=== PATIENT | male | born 1980 | race Caucasian/White ===

== ENCOUNTER → 2016-07-03 | Outpatient (CLI) | payer BC ==
[~2016-07-03] MED LIST: CRG40 PO; HYG25 PO; POTA10TA33 PO; PRD20 PO; VLT500 PO
[2016-07-03 13:42] LABS: BLOOD UREA NITROGEN 26 mg/dl (7-18); BUN/CREATININE RATIO 26.9 (10-20); CARBON DIOXIDE 30 mmol/L (21-32); CHLORIDE 101 mmol/L (98-107); CREATININE 0.95 mg/dl (0.60-1.40); GLUCOSE 90 mg/dl (70-99); POTASSIUM 3.8 mmol/L (3.5-5.1); SODIUM 139 mmol/L (136-145)
[2016-07-03 13:46] LABS: CALCIUM 9.6 mg/dl (8.5-10.1)
== END | disposition home or self-care (01) ==
LOC: C.LABPVFM 09:11
PROVIDERS: ATTEND Family Medicine
DX: I10 Essential (primary) hypertension (principal); G62.9 Polyneuropathy, unspecified

== ENCOUNTER 2016-09-28 10:01 | Emergency (ER) | payer BC ==
[~2016-09-28] VITALS: Ht 170.2 cm; Wt 99.6 kg
[~2016-09-28 10:01] MED LIST changes: -CRG40 PO; -HYG25 PO; -POTA10TA33 PO
[2016-09-28 10:04] VITALS: TEMP 36.5; Ht 170.2 cm; Wt 99.6 kg
[2016-09-28] MEDS ORDERED: SODIUM CHLORIDE 0.9% 1000ML 500 ML IV STA (10:16)
[2016-09-28] MEDS ORDERED: SODIUM CHLORIDE 0.9% 1000ML 1,000 ML IV STA (10:16)
[2016-09-28 10:25] VITALS: O2SAT 96
[2016-09-28] MEDS ORDERED: HYG25 PO (10:28)
[2016-09-28] MEDS ORDERED: POTA10TA33 PO (10:28)
[2016-09-28] MEDS ORDERED: CRG40 PO (10:28)
--- NOTE | 2016-09-28 10:39 | DIAGNOSTIC IMAGING REPORT ---
CHEST ONE VIEW PORTABLE CLINICAL HISTORY: EVALUATE ALTERED MENTAL STATUS/WEAKNESS dyspnea COMPARISON STUDY: 02/20/2014 FINDINGS: The bones soft tissues and hemidiaphragms are normal. The cardiomediastinal silhouette is normal. The lungs are clear. The pulmonary vasculature is normal. IMPRESSION: Negative chest. The above report was generated using voice recognition software. It may contain grammatical, syntax or spelling errors. Electronically signed by: Adrian Bellamy M.D. 09/28/2016 10:38 AM Dictated Date/Time: 09/28/2016 10:37 AM
[2016-09-28 10:43] LABS: BASO % 0.3 %; BASO ABS # 0.02 K/uL (0-0.2); BUN/CREATININE RATIO 14.9 (10-20); CALCIUM 9.2 mg/dl (8.5-10.1); COMPLETE YES; CREATININE 1.2 mg/dl (0.60-1.40); EOS % 2.8 %; HEMATOCRIT 43.9 % (42-52); IG% 0.4 %; LYMPH % 30.5 %; LYMPH ABS # 2.37 K/uL (1.2-3.4); MEAN CELL VOLUME 93.2 fL (80-100); MEAN CORPUSCULAR HEMOGLOBIN 33.3 pg (25-34); MEAN CORPUSCULAR HGB CONC 35.8 g/dl (32-36); MEAN PLATELET VOLUME 11.4 fL (7.4-10.4); PLATELET COUNT 252 K/uL (130-400); POTASSIUM 3.4 mmol/L (3.5-5.1); RED BLOOD COUNT 4.71 M/uL (4.7-6.1); WHITE BLOOD COUNT 7.78 K/uL (4.8-10.8)
--- NOTE | 2016-09-28 10:45 | EMERGENCY ROOM VISIT NOTE ---
History Report prepared by Warren: Lizy Hammond Under the Supervision of: Dr. Haider Hairston M.D. First contact with patient: 10:14 Chief Complaint: CHEST PAIN Stated Complaint: CHEST PAIN Nursing Triage Summary: pt reports while at work "I felt like my heart stopped, I couldn't do anything ,I have never been stabbed but I know this is what it would feel like. 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 He states, "It felt like my heart stopped beating." He estimates that this lasted for about 8 seconds and then resolved. He states that he was unable to respond to his co- worker while he was having this pain. He felt momentarily paralyzed. The patient denies falling over. He states that since his symptoms resolved, he has been feeling extremely tired. This has happened in the past. He had heart palpitations and wore a heart monitor. He thinks that he had an episode of V- tach and was called in to the hospital at that time. He was never told that he needed a defibrillator. He had a cardiac catheterization in the past that was negative. The patient followed-up with Dr. Thomas, who he states ran more testing and placed him on medication for hypertension. He takes his medication as prescribed and states that he has not had any cardiac symptoms for about one year. He does note that since September 07 he has been experiencing intermittent palpitations again. The patient denies any recent illness, cough, or cold symptoms. 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 A total of 10 systems reviewed and were otherwise negative. Past Medical & Surgical Medical Problems: (1) Palpitations (2) Post concussion syndrome Family History Diabetes mellitus Heart disease Social History Smoking Status: Former Smoker Alcohol Use: occasionally Drug Use: none Marital Status: Housing Status: lives with family Occupation Status: employed Current/Historical Medications Scheduled Chlorthalidone (Chlorthalidone), 25 MG PO DAILY Nadolol (Nadolol), 40 MG PO DAILY Potassium Chloride (Potassium Chloride Sr), 10 MEQ PO DAILY Allergies Coded Allergies: No Known Allergies (Unverified , 02/20/14) Physical Exam Vital Signs Date Time Temp Pulse Resp B/P (MAP) Pulse Ox O2 Delivery O2 Flow Rate FiO2 09/28/16 13:15 52 20 126/87 96 09/28/16 12:17 47 09/28/16 12:00 48 16 131/92 96 Room Air 09/28/16 11:16 52 18 123/91 96 Room Air 09/28/16 10:25 96 Room Air 09/28/16 10:25 49 16 137/87 95 Room Air 09/28/16 10:17 51 09/28/16 10:04 36.5 54 18 165/113 96 Room Air Physical Exam GENERAL: Patient is in no acute distress. HEENT: No acute trauma, normocephalic atraumatic, mucous membranes moist, no nasal congestion, no scleral icterus. NECK: No stridor, no adenopathy, no meningismus, trachea is midline. LUNGS: Clear to auscultation bilaterally, no wheeze, no rhonchi, breath sounds equal. HEART: Bradycardic with a regular rhythm, no murmurs. ABDOMEN: Soft, nontender, bowel sounds positive, no hernias, no peritonitis. EXTREMITIES: No cyanosis or edema, full range of motion of all the joints without pain or difficulty, no signs for acute trauma. NEUROLOGIC: Oriented x 3, no acute motor or sensory deficits, no focal weakness. SKIN: No rash, no jaundice, no diaphoresis. Medical Decision & Procedures ER Provider Diagnostic Interpretation: Radiology results as stated below per my review and radiologist interpretation: CHEST ONE VIEW PORTABLE CLINICAL HISTORY: EVALUATE ALTERED MENTAL STATUS/WEAKNESS dyspnea COMPARISON STUDY: 02/20/2014 FINDINGS: The bones soft tissues and hemidiaphragms are normal. The cardiomediastinal silhouette is normal. The lungs are clear. The pulmonary vasculature is normal. IMPRESSION: Negative chest. The above report was generated using voice recognition software. It may contain grammatical, syntax or spelling errors. Electronically signed by: Adrian Bellamy M.D. 09/28/2016 10:38 AM Dictated Date/Time: 09/28/2016 10:37 AM Laboratory Results 09/28/16 10:15 Red Blood Count 4.71, Mean Corpuscular Volume 93.2, Mean Corpuscular Hemoglobin 33.3, Mean Corpuscular Hemoglobin Concent 35.8, Mean Platelet Volume 11.4, Neutrophils (%) (Auto) 54.0, Lymphocytes (%) (Auto) 30.5, Monocytes (%) (Auto) 12.0, Eosinophils (%) (Auto) 2.8, Basophils (%) (Auto) 0.3, Neutrophils # (Auto ) 4.21, Lymphocytes # (Auto) 2.37, Monocytes # (Auto) 0.93, Eosinophils # (Auto ) 0.22, Basophils # (Auto) 0.02 09/28/16 10:15 Test 09/28/16 10:15 09/28/16 12:22 White Blood Count 7.78 K/uL (4.8-10.8) Red Blood Count 4.71 M/uL (4.7-6.1) Hemoglobin 15.7 g/dL (14.0-18.0) Hematocrit 43.9 % (42-52) Mean Corpuscular Volume 93.2 fL (80-100) Mean Corpuscular Hemoglobin 33.3 pg (25-34) Mean Corpuscular Hemoglobin Concent 35.8 g/dl (32-36) Platelet Count 252 K/uL (130-400) Mean Platelet Volume 11.4 fL (7.4-10.4) Neutrophils (%) (Auto) 54.0 % Lymphocytes (%) (Auto) 30.5 % Monocytes (%) (Auto) 12.0 % Eosinophils (%) (Auto) 2.8 % Basophils (%) (Auto) 0.3 % Neutrophils # (Auto) 4.21 K/uL (1.4-6.5) Lymphocytes # (Auto) 2.37 K/uL (1.2-3.4) Monocytes # (Auto) 0.93 K/uL (0.11-0.59) Eosinophils # (Auto) 0.22 K/uL (0-0.5) Basophils # (Auto) 0.02 K/uL (0-0.2) RDW Standard Deviation 42.9 fL (36.4-46.3) RDW Coefficient of Variation 12.5 % (11.5-14.5) Immature Granulocyte % (Auto) 0.4 % Immature Granulocyte # (Auto) 0.03 K/uL (0.00-0.02) Anion Gap 6.0 mmol/L (3-11) Est Creatinine Clear Calc Drug Dose 93.9 ml/min Estimated GFR () 88.4 Estimated GFR (Non- 76.3 BUN/Creatinine Ratio 14.9 (10-20) Calcium Level 9.2 mg/dl (8.5-10.1) Total Bilirubin 0.4 mg/dl (0.2-1) Aspartate Amino Transf (AST/SGOT) 21 U/L (15-37) Alanine Aminotransferase (ALT/SGPT) 45 U/L (12-78) Alkaline Phosphatase 56 U/L (45-117) Total Protein 7.2 gm/dl (6.4-8.2) Albumin 3.8 gm/dl (3.4-5.0) Globulin 3.4 gm/dl (2.5-4.0) Albumin/Globulin Ratio 1.1 (0.9-2) Thyroid Stimulating Hormone (TSH) 1.730 uIu/ml (0.300-4.500) Bedside Troponin I < 0.030 ng/ml (0-0.045) Laboratory results reviewed by me. Medications Administered Medications (Trade) Dose Ordered Sig/Melvin Route Start Time Stop Time Status Last Admin Dose Admin Sodium Chloride 500 ml @ 999 mls/hr Q31M STAT IV 09/28/16 10:16 09/28/16 10:46 DC 09/28/16 10:29 999 MLS/HR Sodium Chloride 1,000 ml @ 200 mls/hr Q5H STAT IV 09/28/16 10:16 09/28/16 15:15 09/28/16 11:00 200 MLS/HR ECG Indication: chest pain Rate (beats per minute): 50 Rhythm: sinus bradycardia Findings: no acute ischemic change, no ectopy ED Course 1014: The patient was evaluated in room A3. A complete history and physical exam was performed. 1016: NSS 1000 ml @ 200 mls/hr IV, NSS 500 ml @ 999 mls/hr IV 1122: I spoke with Dr. Thomas of cardiology. We discussed the patient's case. He will set up for an event monitor for a month. It will be mailed to the patient's house and he will follow-up in the office after a month. 1134: I updated the patient. He is doing well. 1256: I reassessed the patient at this time. He is feeling better and resting comfortably. I discussed the results and treatment plan with the patient. I answered all pertaining questions that he had. He expressed understanding and verbalized agreement. The patient will be discharged home. Medical Decision Differential diagnoses includes musculoskeletal pain, dysrhythmia, palpitations , anemia, electrolyte imbalance, NE, aortic dissection, PE. There is no leukocytosis or concerning anemia. No significant electrolyte abnormality, kidney failure, hepatitis. The patient appears to be in a euthyroid state. EKG shows a sinus bradycardia, no acute ischemia. Cardiac enzyme testing 2 is not suggestive of acute cardiac injury. Chest x-ray shows no mediastinal widening, pneumonia or pneumothorax. The patient presents with an 8-10 second episode of sharp chest pain. He has a history of palpitations. Workup here is benign. He did receive some IV saline during his ER stay. 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 The patient will be receiving an event monitor in the mail. He will be followed up by cardiology. He was encouraged to return for worsening symptoms. The etiology of his presentation is not clear by our testing but I do feel comfortable with discharge home. Consults Time Called: 1120 Consulting Physician: Dr. Thomas Returned Call: [address] Thomas of cardiology. We discussed the patient's case. He will set up for an event monitor for a month. It will be mailed to the patient' s house and he will follow-up in the office after a month. Impression Primary Impression: Palpitations Additional Impression: Precordial chest pain Scribe Attestation The scribe's documentation has been prepared under my direction and personally reviewed by me in its entirety. I confirm that the note above accurately reflects all work, treatment, procedures, and medical decision making performed by me. Departure Information Dispostion Home / Self-Care Referrals Polo Crouch M.D. (PCP) Forms HOME CARE DOCUMENTATION FORM, IMPORTANT VISIT INFORMATION Patient Instructions My [facility] Additional Instructions follow with cardiology you will receive a monitor in the mail return if worsening testing today was all ok Problem Qualifiers
[2016-09-28 10:54] LABS: ALB/GLOB RATIO 1.1 (0.9-2); THYROID STIMULATING HORMONE 1.73 uIu/ml (0.300-4.500)
[2016-09-28 13:15] VITALS: BP 126/87; PULSE 52; O2SAT 96
== END 2016-09-28 13:18 | disposition home or self-care (01) ==
LOC: C.EDB 10:03 → C.EDA 13:18
DX: R00.2 Palpitations (principal); R07.2 Precordial pain; Z87.820 Personal history of traumatic brain injury; Z87.891 Personal history of nicotine dependence; Z98.890 Other specified postprocedural states; Z83.3 Family history of diabetes mellitus

== ENCOUNTER → 2017-06-21 | Outpatient (CLI) | payer OTHER ==
[~2017-06-21] MED LIST changes: +CRG40 PO; +HYG25 PO; +POTA10TA33 PO; -PRD20 PO; -VLT500 PO
[2017-06-21 13:32] LABS: BLOOD UREA NITROGEN 23 mg/dl (7-18); CALCIUM 9.5 mg/dl (8.5-10.1); CARBON DIOXIDE 29 mmol/L (21-32); CREATININE 1.09 mg/dl (0.60-1.40); GLUCOSE 90 mg/dl (70-99); POTASSIUM 3.3 mmol/L (3.5-5.1); SODIUM 134 mmol/L (136-145)
[2017-06-21 13:36] LABS: CHOLESTEROL 179 mg/dl (0-200)
== END | disposition home or self-care (01) ==
LOC: C.LABPVFM 09:17
PROVIDERS: ATTEND Nurse Practitioner
DX: G62.9 Polyneuropathy, unspecified (principal); I10 Essential (primary) hypertension

== ENCOUNTER → 2017-07-15 | Outpatient (CLI) | payer OTHER | END | disposition home or self-care (01) | LOC: C.LABPVFM 08:47 | PROVIDERS: ATTEND Nurse Practitioner | DX: E87.6 Hypokalemia (principal) ==

== ENCOUNTER 2019-07-27 19:41 | Observation (INO) ==
[2019-07-27] MEDS ORDERED: ASPIRIN CHEW 324 MG PO STA (20:03)
[2019-07-27] MEDS ORDERED: SODIUM CHLORIDE 0.9% 1000ML 1,000 ML IV SCH (20:15)
[2019-07-27 20:18] LABS: Basophils # (auto) 0.01 K/uL (0-0.2); Basophils % (auto) 0.1 %; Eosinophils % (auto) 1.4 %; Hematocrit (blood only) 45.8 % (42-52); Hemoglobin 16.2 g/dL (14.0-18.0); Immature Granulocytes # (auto) 0.01 K/uL (0.00-0.02); Immature Granulocytes % (auto) 0.1 %; Lymphocytes # (auto) 1.84 K/uL (1.2-3.4); Lymphocytes % (auto) 26.3 %; Mean Corpuscular Hgb Conc 35.4 g/dL (32-36); Mean Platelet Volume 10.4 fL (7.4-10.4); Monocytes # (auto) 0.94 K/uL (0.11-0.59); Monocytes % (auto) 13.4 %; Neutrophils % (auto) 58.7 %; Platelet Count 227 K/uL (130-400); RDW Coefficient of Variation 13.7 % (11.5-14.5); RDW Standard Deviation 47.7 fL (36.4-46.3); Red Blood Count 4.77 M/uL (4.7-6.1)
[2019-07-27 20:26] LABS: Alanine Aminotransferase 85 U/L (12-78); Albumin Level 3.9 gm/dl (3.4-5.0); Aspartate Aminotransferase 71 U/L (15-37); BUN Creatinine Ratio 13.7 (10-20); Blood Urea Nitrogen 14 mg/dl (7-18); Carbon Dioxide 25 mmol/L (21-32); Chloride 100 mmol/L (98-107); Creatinine Clr Calc Pharmacy 101.9 ml/min; Est GFR (African American) 105.3; Est GFR (Non-African American) 90.9; Glucose 110 mg/dl (70-99); Lipase 427 U/L (73-393); Potassium 3.4 mmol/L (3.5-5.1); Sodium 137 mmol/L (136-145)
[2019-07-27 20:30] LABS: Alkaline Phosphatase 84 U/L (45-117); Bilirubin,Total 0.4 mg/dl (0.2-1); Globulin 3.9 gm/dl (2.5-4.0); Total Protein 7.8 gm/dl (6.4-8.2); Troponin I < 0.015 ng/ml (0-0.045)
[2019-07-27 20:31] LABS: D Dimer 370 ug/L FEU (0-500); INR 1.1 (0.9-1.1); Partial Thromboplastin Ratio 0.9; Partial Thromboplastin Time 25.4 Seconds (21.0-31.0); Prothrombin Time 11.2 Seconds (9.0-12.0)
--- NOTE | 2019-07-27 20:31 | XRay Report ---
SINGLE VIEW CHEST CLINICAL HISTORY: Atypical chest pain. FINDINGS: An AP, portable, upright chest radiograph is compared to study dated 11/28/2018. The cardiom ediastinal silhouette is unremarkable. The lungs and pleural spaces are clear. No pneumothorax is see n. The bony thorax is grossly intact. IMPRESSION: No active disease in the chest. ACT 112: Negative or not required by law. Electronically signed by: Haider Fortune M.D. 07/27/2019 8:29 PM
--- NOTE | 2019-07-27 22:27 | Ultrasound Report ---
ULTRASOUND RIGHT UPPER QUADRANT ABDOMEN CLINICAL HISTORY: Right upper quadrant abdominal pain.. COMPARISON STUDY: Abdominal CT dated 02/01/2014. TECHNIQUE: Real-time, grayscale, and color flow sonography of the right upper quadrant of the abdomen was performed. Images are reviewed in the transverse and longitudinal planes. FINDINGS: Liver: The liver is normal in size and echotexture. There is no intrahepatic biliary ductal dilatatio n. The main portal vein is patent. Gallbladder: The gallbladder is normal in appearance. No gallstones are identified. There is no gallb ladder wall thickening or pericholecystic fluid. A sonographic Ocampo's sign is reportedly absent. Th e common bile duct measures up to 0.5 cm in diameter. Pancreas: Visualized portions of the pancreatic head and body are normal in appearance. The splenic v ein is patent. Right kidney: Survey images of the right kidney demonstrate normal size and echotexture. There is no hydronephrosis. Ascites: None. IMPRESSION: Unremarkable sonographic assessment of the right upper quadrant. No shadowing gallstones are identified. ACT 112: Negative or not required by law. Electronically signed by: Haider Fortune M.D. 07/27/2019 10:26 PM
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
[2019-07-27] MEDS ORDERED: GI COCKTAIL ED USE PO ONE (22:38)
[2019-07-27] MEDS ORDERED: FAMOTIDINE 20MG IV PUSH 20 MG/5 ML SYR IV STA (22:38)
--- NOTE | 2019-07-28 00:57 | Emergency Department Note ---
ED Visit Note Patient case was signed out to me at 10:45 PM by Isis Laguna PA-C at shift change. This was pending the patient's repeat troponin and repeat clinical evaluation. I did reevaluate the patient upon signout and he was resting comfortably and was pain-free. His EKG was reviewed and was similar to previous. Patient was felt to be a heart score of 3. We discussed options of care and at this time decided to discharge home with close follow-up in the outpatient setting. Patient was happy with this plan. He did express desire to stop drinking and we discussed benefit versus risk of a Librium taper. Patient desired this and this was prescribed. No red flag in the [place] drug monitoring system. He was thoroughly educated upon indication and cautions of this medication. Patient was discharged. I was then called by the nurse as he came back noting that he had chest pain. Upon speaking with the patient it sounds as though he felt fine when he stood up from the exam bed and left but when he made it to the entrance/exit to the ED he developed a tremendous substernal chest discomfort and felt clammy as well as burning inside his head. Given these symptoms that were felt to be exertional I do believe that further evaluation and management in the inpatient setting is now warranted. Patient was amenable to staying. I discussed the case with the hospitalist. Please refer to further documentation regarding his stay. . : Chest pain Qualifiers: Chest pain type: unspecified Qualified Code(s): R07.9 - Chest pain, unspecified Alcoholism with alcohol dependence Qualifiers: Substance use status: uncomplicated Qualified Code(s): F10.20 - Alcohol dependence, uncomplicated
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
[2019-07-28] MEDS ORDERED: GABAPENTIN 1200MG ALCOHOL WITHDRAWAL LOAD PO STA (03:34)
[2019-07-28] MEDS ORDERED: LORazepam 1 MG TAB PO PRN (03:34)
[2019-07-28 03:57] LABS: Basophils # (auto) 0.01 K/uL (0-0.2); Basophils % (auto) 0.2 %; Eosinophils # (auto) 0.11 K/uL (0-0.5); Hematocrit (blood only) 41.4 % (42-52); Hemoglobin 14.4 g/dL (14.0-18.0); Immature Granulocytes # (auto) 0.01 K/uL (0.00-0.02); Immature Granulocytes % (auto) 0.2 %; Lymphocytes # (auto) 1.93 K/uL (1.2-3.4); Lymphocytes % (auto) 35.5 %; Mean Corpuscular Hemoglobin 33.7 pg (25-34); Mean Corpuscular Hgb Conc 34.8 g/dL (32-36); Monocytes # (auto) 0.82 K/uL (0.11-0.59); Monocytes % (auto) 15.1 %; Neutrophils # (auto) 2.55 K/uL (1.4-6.5); Platelet Count 159 K/uL (130-400); RDW Coefficient of Variation 13.8 % (11.5-14.5); RDW Standard Deviation 48.3 fL (36.4-46.3); Red Blood Count 4.27 M/uL (4.7-6.1); White Blood Count 5.43 K/uL (4.8-10.8)
[2019-07-28] MEDS ORDERED: GABAPENTIN 600 MG TAB PO SCH ×2 (04:00→10:00)
[2019-07-28 04:14] LABS: Alanine Aminotransferase 76 U/L (12-78); Albumin Level 3.4 gm/dl (3.4-5.0); Aspartate Aminotransferase 62 U/L (15-37); BUN Creatinine Ratio 15.2 (10-20); Blood Urea Nitrogen 14 mg/dl (7-18); Calcium 8.7 mg/dl (8.5-10.1); Carbon Dioxide 27 mmol/L (21-32); Chloride 104 mmol/L (98-107); Creatinine Clr Calc Pharmacy 109.5 ml/min; Est GFR (African American) 114.8; Glucose 88 mg/dl (70-99); Potassium 3.5 mmol/L (3.5-5.1); Sodium 140 mmol/L (136-145)
[2019-07-28 04:19] LABS: Alkaline Phosphatase 74 U/L (45-117); Bilirubin,Total 0.8 mg/dl (0.2-1); Globulin 3.4 gm/dl (2.5-4.0); Total Protein 6.8 gm/dl (6.4-8.2); Troponin I < 0.015 ng/ml (0-0.045)
[2019-07-28 07:52] LABS: Chol HDL Ratio 3; Cholesterol 152 mg/dl (0-200); HDL Cholesterol 53 mg/dl; LDL Cholesterol Calculated 84 mg/dl; Triglycerides 73 mg/dl (0-150); VLDL Cholesterol 15 mg/dl
--- NOTE | 2019-07-28 08:34 | Hospitalist Progress Note ---
Date of Service July 28, 2019 Assessment & Plan (1) Chest pain: Alexandru Mix is a 39y/o M w/ PMH hypertension; who presented to the ED following sudden onset of chest pain. Exertional Chest Pain: - two episodes of exertional chest pain in the last 24 hours; patient refused pain control medication; expressed no further chest pain episodes overnight - EKG demonstrated sinus bradycardia without ST changes, or arrhythmia - troponin <0.015 x3 - D-dimer 370 - Lipid panel pending - Cardiology consulted Alcoholism with alcohol dependence: - patient at high risk of alcohol withdrawal given large volume of alcohol consumption daily for the last ten years - Ativan PRN per AWSS protocol - Gabapentin scheduled per alcohol withdrawal protocol - continue to monitor Diet: Heart healthy Code Status: Full code Admission and Anticipated Discharge Date Admission Date: July 28, 2019 Results & Data Results & Data ([facility]) Vital Signs (Past 12 Hours) Vital Signs Temp Pulse Pulse Pulse Resp BP BP 07/28/19 07:54 98.2 F 54 L 18 155/81 H 07/28/19 05:15 49 L 07/28/19 04:37 98.2 F 70 18 07/28/19 03:30 98.1 F 50 L 18 164/89 H 07/28/19 03:01 49 L 16 170/98 H 07/28/19 02:30 46 L 19 132/88 07/28/19 02:00 47 L 12 134/86 07/28/19 01:31 74 12 157/88 H 07/28/19 01:00 48 L 12 147/87 H 07/28/19 00:52 54 L 16 167/97 H 07/27/19 23:30 54 L 16 139/88 07/27/19 23:00 67 13 153/78 H 07/27/19 22:30 52 L 13 139/88 07/27/19 22:18 80 16 147/84 H 07/27/19 21:30 53 L 13 168/102 H 07/27/19 21:21 53 L 20 136/94 07/27/19 21:00 54 L 13 07/27/19 20:52 70 18 07/27/19 20:34 59 L 13 148/99 H BP Pulse Ox 07/28/19 07:54 97 07/28/19 05:15 07/28/19 04:37 134/90 95 07/28/19 03:30 97 07/28/19 03:01 96 07/28/19 02:30 95 07/28/19 02:00 95 07/28/19 01:31 95 07/28/19 01:00 96 07/28/19 00:52 96 07/27/19 23:30 97 07/27/19 23:00 96 07/27/19 22:30 96 07/27/19 22:18 95 07/27/19 21:30 95 07/27/19 21:21 97 07/27/19 21:00 96 07/27/19 20:52 97 07/27/19 20:34 96 PG Care Time/CCT Total # of Minutes Spent Total Time Spent with Patient: Total time spent is greater than 50% in coordination of care (as documented) at patient's floor/unit and/or counseling patient: Coding Diagnoses Chest pain R07.9 Chest pain type: unspecified (1) Chest pain Chest pain type: unspecified Qualified Code(s): R07.9 - Chest pain, unspecified
[2019-07-28] MEDS ORDERED: LOSARTAN POTASSIUM 50 MG TAB PO SCH (09:00)
[2019-07-28] MEDS ORDERED: THIAMINE HCL 100 MG TAB PO SCH (09:00)
[2019-07-28] MEDS ORDERED: nadoloL 40 MG TAB PO SCH (09:00)
[2019-07-28] MEDS ORDERED: FOLIC ACID 1 MG TAB PO SCH (09:00)
--- NOTE | 2019-07-28 10:58 | Cardiology Consultation ---
Date of Consultation The history is obtained from the patient as well as the chart. He notes chest discomfort when he awoke at 5:30 PM. He was in the kitchen standing talking to his . At that time he had a sudden onset of feeling pressure in his chest. He describes it as a stabbing knifelike sensation as well as a sensation of feeling like someone was squeezing his chest. He was not doing any activity with this. He was not having an argument. He became diaphoretic with it there was no radiation to his neck jaw back or arm. He came to the emergency room where the pain persisted for 2 hours he notes it was slightly better lying flat. He was unaware that it was worse with a deep breath. He does have some musculoskeletal discomfort but the pain was not re producible. He was leaving the emergency room and walking through the exit door and had recurrence of since his discomfort. He then decided to stay in the hospital. He currently has some mild discomfort again is not worse with a deep breath. He does have some mild reproducible left chest wall discomfort but this pain is different than what he was feeling. He does have GERD symptoms. He does wake up with a hoarse voice and occasionally with a sour taste in his mouth. He denies any ripping or tearing discomfort. He denies any abdominal discomfort. He did have some abdominal pain a week ago in the right lower quadrant this has since resolved. Denies any palpitations, lightheadedness, dizziness. He denies any presyncope or syncope. He denies any lower extremity edema or symptoms of claudication Although he is currently not working. 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 He denies any lifting of anything heavy in the last 2 to 3 days for which he thinks he could have strained himself. The rest of a complete her systems otherwise negative July 28, 2019 History of Present Illness Attending Physician: Laith Nunez MD Allergies Allergy/AdvReac Type Severity Reaction Status Date / Time No Known Allergies Allergy Verified 07/27/19 20:46 Home Medications Home Medications Medication Instructions Recorded Confirmed Type chlordiazepoxide HCl See Rx Instructions .ROUTE 07/27/19 Rx .COMPLEX #32 cap losartan 50 mg PO DAILY 07/27/19 07/27/19 History nadolol 20 mg PO DAILY 07/27/19 07/27/19 History Patient History Medical History High blood pressure TIA (transient ischemic attack) (Acute) Social History Preferred Language: Peruvian Communication Ability: Effective Special Delivery Carrier Required: No Beliefs That Will Affect Care: None Current Living Situation: Family Feels Safe at Home: Yes Smoking Status: Current every day smoker Tobacco Type: cigarettes ; Cigarettes Per Day: 1/2 pack ; Do You Dip or Chew Tobacco: No ; Second Hand Exposure: No ; Hx Alcohol Use: Yes Alcohol type: hard liquor Hx Substance Use: No Results & Data ([facility]) Vital Signs (Past 12 Hours) Vital Signs Temp Pulse Pulse Pulse Resp BP BP 07/28/19 07:54 36.8 C 54 L 18 155/81 H 07/28/19 07:00 46 L 07/28/19 05:15 49 L 07/28/19 04:37 36.8 C 70 18 07/28/19 03:30 36.7 C 50 L 18 164/89 H 07/28/19 03:01 49 L 16 170/98 H 07/28/19 02:30 46 L 19 132/88 07/28/19 02:00 47 L 12 134/86 07/28/19 01:31 74 12 157/88 H 07/28/19 01:00 48 L 12 147/87 H 07/28/19 00:52 54 L 16 167/97 H 07/27/19 23:30 54 L 16 139/88 07/27/19 23:00 67 13 153/78 H BP Pulse Ox 07/28/19 07:54 97 07/28/19 07:00 07/28/19 05:15 07/28/19 04:37 134/90 95 07/28/19 03:30 97 07/28/19 03:01 96 07/28/19 02:30 95 07/28/19 02:00 95 07/28/19 01:31 95 07/28/19 01:00 96 07/28/19 00:52 96 07/27/19 23:30 97 07/27/19 23:00 96 He is awake alert and oriented x3 he is in no acute distress HEENT: 2+ carotid upstrokes normal to carotid bruits jugular is pressure appeared normal his sclerae anicteric his hearing is normal Lungs: Both inspiratory and expiratory wheezing. There was no rhonchi Heart: Regular rate and rhythm no appreciable murmurs rubs or gallops Abdomen soft nontender senna positive bowel sounds Extremities no clubbing cyanosis or edema Psychiatric his affect appeared appropriate Neurologic he does have some hand tremors. EKG: Sinus bradycardia normal ECG Troponins are negative x3 Impressions: 1 chest discomfort 2 hypertension 3 tobacco abuse 4 significant alcohol abuse 5 GERD It is reassuring his troponins are negative and his EKG is normal. He had the pain for an extended period of time and one would anticipate if he is having an acute coronary syndrome his troponin should be elevated. In addition there is no ripping or tearing discomfort to suggest that this is an aortic dissection. He has had no swelling in his legs or extended car rides or airplane flights that would put him at risk for pulmonary embolism. His aorta is not widened on his chest x-ray. This may have been esophageal spasm he drinks heavily and smokes and has GERD- like symptoms and does not use anything to suppress his reflux. The other possibility is that this is musculoskeletal in etiology. I would start Protonix 40 mg daily one could consider giving him a shot of Toradol 15 mg daily. His carotid upstrokes are brisk there is nothing to suggest LV dysfunction. He is wheezing and ultimately may need may need an inhaler. At this point I do not think he needs an inpatient stress test. He could follow-up with his primary care provider.
[2019-07-28] MEDS ORDERED: PANTOprazole 40 MG TAB PO SCH (11:30)
--- NOTE | 2019-07-28 12:05 | Electrocardiogram Report ---
Test Reason : Blood Pressure : / mmHG Vent. Rate : 066 BPM Atrial Rate : 066 BPM P-R Int : 144 ms QRS Dur : 098 ms QT Int : 404 ms P-R-T Axes : 023 010 022 degrees QTc Int : 423 ms Normal sinus rhythm Normal ECG When compared with ECG of 28-NOV-2018 17:27, No significant change was found Confirmed by Nuno Bustamante ([id number]) on 07/28/2019 12:04:40 PM Referred By: REFERRED SELF Confirmed By:Nuno Bustamante
--- NOTE | 2019-07-28 12:07 | Electrocardiogram Report ---
Test Reason : Blood Pressure : / mmHG Vent. Rate : 056 BPM Atrial Rate : 056 BPM P-R Int : 148 ms QRS Dur : 092 ms QT Int : 448 ms P-R-T Axes : 018 012 018 degrees QTc Int : 432 ms Sinus bradycardia Otherwise normal ECG When compared with ECG of 27-JUL-2019 19:50, (unconfirmed) No significant change was found Confirmed by Nuno Bustamante ([id number]) on 07/28/2019 12:06:58 PM Referred By: REFERRED SELF Confirmed By:Nuno Bustamante
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
[2019-07-29] MEDS ORDERED: GABAPENTIN 600 MG TAB PO SCH
--- NOTE | 2019-07-29 20:04 | Billing Data ---
Date of Service July 29, 2019 Coding Level of Care Code 33339 OBS Care - Level 3
[2019-07-30] MEDS ORDERED: GABAPENTIN 600 MG TAB PO SCH (06:00)
[2019-07-31] MEDS ORDERED: GABAPENTIN 600 MG TAB PO SCH (18:00)
== END 2019-07-28 15:00 | disposition home or self-care (01) ==
LOC: ED 19:41 → 2W 07-28 01:57 → SUATTDRO 07-28 01:57 → INTOOBSV 07-28 01:57 → 2W 07-28 03:07

== ENCOUNTER 2020-10-30 12:14 | Inpatient (IN) ==
[2020-10-30] MEDS ORDERED: LORazepam 1 MG TAB PO STA (12:43)
[2020-10-30 13:17] LABS: Basophils # (auto) 0.03 K/uL (0-0.2); Basophils % (auto) 0.6 %; Eosinophils % (auto) 3.9 %; Hematocrit (blood only) 44.5 % (42-52); Hemoglobin 15.5 g/dL (14.0-18.0); Immature Granulocytes # (auto) 0.03 K/uL (0.00-0.02); Immature Granulocytes % (auto) 0.6 %; Lymphocytes # (auto) 2.05 K/uL (1.2-3.4); Lymphocytes % (auto) 39.9 %; Mean Corpuscular Hemoglobin 32.5 pg (25-34); Mean Corpuscular Hgb Conc 34.8 g/dL (32-36); Mean Corpuscular Volume 93.3 fL (80-100); Mean Platelet Volume 10.4 fL (7.4-10.4); Monocytes # (auto) 0.84 K/uL (0.11-0.59); Monocytes % (auto) 16.3 %; Neutrophils # (auto) 1.99 K/uL (1.4-6.5); Neutrophils % (auto) 38.7 %; Platelet Count 259 K/uL (130-400); RDW Coefficient of Variation 13.8 % (11.5-14.5); RDW Standard Deviation 47.1 fL (36.4-46.3); Red Blood Count 4.77 M/uL (4.7-6.1); White Blood Count 5.14 K/uL (4.8-10.8)
[2020-10-30] MEDS ORDERED: LORazepam 2 MG/4 ML VIAL IV STA (13:26)
[2020-10-30] MEDS ORDERED: MULTI-VITAMIN INFUSION 10 ML, THIAMINE HCL 100 MG, FOLIC ACID 1 MG in SODIUM CHLORIDE 0... IV ONE (13:26)
[2020-10-30] MEDS ORDERED: THIAMINE HCL 200 MG in SODIUM CHLORIDE 0.9% 50 ML IV STA (13:26)
[2020-10-30 13:35] LABS: Albumin Level 3.7 gm/dl (3.4-5.0); BUN Creatinine Ratio 17.5 (10-20); Calcium 9.2 mg/dl (8.5-10.1); Creatinine Clr Calc Pharmacy 123.1 ml/min; Est GFR (African American) 124.6 ml/min; Est GFR (Non-African American) 107.5 ml/min; Potassium 3.7 mmol/L (3.5-5.1)
[2020-10-30 13:40] LABS: Acetaminophen < 2 ug/ml (10-30); Salicylate 4.1 mg/dl (2.8-20)
[2020-10-30 13:45] LABS: Bilirubin,Total 0.4 mg/dl (0.2-1); Globulin 3.6 gm/dl (2.5-4.0); Thyroid Stimulating Hormone 1.21 uIu/ml (0.300-4.500); Total Protein 7.3 gm/dl (6.4-8.2)
[2020-10-30 13:47] LABS: Bilirubin Direct 0.1 mg/dl (0-0.2)
[2020-10-30 15:35] LABS: Appearance Urine Clear (Clear); Bilirubin Urine Negative (Negative); Blood Urine Negative (Negative); Color Urine Yellow; Glucose Urine UA Negative (Negative); Ketones Urine Negative (Negative); Leukocyte Esterase Urine Negative (Negative); Nitrite Urine Negative (Negative); Protein Urine Negative (Negative); Specific Gravity Urine 1.016 (1.000-1.030); Urobilinogen Urine Negative (Negative); pH Urine 6.5 (4.5-7.5)
[2020-10-30 16:01] LABS: Amphetamines+Metham, Urine Neg (Neg); Barbiturates, Urine Neg (Neg); Benzodiazepine, Urine Neg (Neg); Cocaine, Urine Neg (Neg); MDMA (Ecstacy), Urine Neg (Neg); Methadone, Urine Neg (Neg); Opiate, Urine Neg (Neg); Phencyclidine, Urine Neg (Neg)
--- NOTE | 2020-10-30 16:23 | Emergency Department Note ---
Impression & Plan Alcoholism with alcohol dependence, Suicide ideation, Alcohol withdrawal, Depression ED Provider Note NAME: JOHN JACKSON AGE: 40 SEX: M ARRIVES VIA: Walk-In INFORMANT: Patient, ED PROVIDER(S): Orville West MD CHIEF COMPLAINT: Alcohol withdrawal, depression with SI. PLAN: Disposition: Admit. MEDICAL DECISION MAKING: The patient is a 40-year-old gentleman with a past medical history of alcoholism and alcohol dependence who presents emergency department with symptoms of alcohol withdrawal with his last drink of alcohol last night where he drinks hard liquor at least a pint or more in the setting of also reporting he has been feeling more depressed and intermittently hopeless with thoughts of suicide last night where he would hang himself though he admits at this time he does not actively want to kill himself. He reports the reasons that he feels depressed is that he is frustrated that he started drinking alcohol again after being sober for several months. He is interested in admission for acute alcohol withdrawal treatment. Denies any recent illness including fevers, chills, cough, congestion, GI or symptoms. On arrival the patient is anxious, melancholy appearing, afebrile with stable vital signs. He has mild-moderate tremors. WBC, H/H in place within normal limits. Chemistry without metabolic acidosis. Electrolytes without significant abnormality. AST slightly elevated at 45 however similar to prior range of values in setting with alcoholism. Lipase within normal limits. TSH was normal normal limits. UA without evidence of infection. Blood alcohol was 20. COVID-19 PCR was negative. Withdrawal symptoms improved with PO and IV Ativan. Patient agrees with plan for admission. Case was discussed with Dr. Magana [facility] hospitalist, who will evaluate the patient for admission. Triage Nursing notes reviewed and agree them. Prior medical records reviewed Vital Signs: reviewed and remarkable for no significant abnormalities Differential diagnosis: Overdose, toxicologic, infection, hypoglycemia, electrolyte abnormalities, cardiac sources, intracerebral event, neurologic, trauma, as well as other pathologies. ER treatment provided: See below. Diagnostics interpreted by me: Cardiac Monitoring: An order for continuous cardiac monitoring was placed and demonstrated NSR, 80 bpm, no ectopy. Laboratory studies: See below Imaging studies: See below Consultation(s): Case was discussed with Dr. Magana [facility] hospitalist, who will evaluate the patient for admission. HPI: The patient is a 40-year-old gentleman with a past medical history of alcoholism and alcohol dependence who presents emergency department with symptoms of alcohol withdrawal with his last drink of alcohol last night where he drinks hard liquor at least a pint or more in the setting of also reporting he has been feeling more depressed and intermittently hopeless with thoughts of suicide last night where he would hang himself though he admits at this time he does not actively want to kill himself. He reports the reasons that he feels depressed is that he is frustrated that he started drinking alcohol again after being sober for several months. He is interested in admission for acute alcohol withdrawal treatment. Denies any recent illness including fevers, chills, cough, congestion, GI or symptoms. ROS: See above HPI for pertinent positives & negatives. A total of 10 systems reviewed and were otherwise negative. PAST MEDICAL HISTORY:See Below PAST SURGICAL HISTORY:See Below FAMILY HISTORY:See Below SOCIAL HISTORY:See Below HOME MEDICATIONS:See Below ALLERGIES:See Below VITALS:See Below PHYSICAL EXAMINATION: GENERAL: Awake, alert, anxious/melancholy-appearing, in no distress HENT: Normocephalic, atraumatic. Oropharynx with dry mucous membranes and otherwise unremarkable. EYES: Normal conjunctiva. Sclera non-icteric. NECK: Supple. No nuchal rigidity. FROM. No JVD. RESPIRATORY: Clear to auscultation. CARDIAC: Regular rate, normal rhythm. Extremities warm and well perfused. Pulses equal. ABDOMEN: Soft, non-distended. No tenderness to palpation. No rebound or guarding. No masses. RECTAL: Deferred. MUSCULOSKELETAL: Chest examination reveals no tenderness. The back is symmetrical on inspection without obvious abnormality. There is no CVA tenderness to palpation. No joint edema. LOWER EXTREMITIES: Calves are equal size bilaterally and non-tender. No edema. No discoloration. NEURO: No focal sensory or motor deficits noted. Mild-moderate tremors. SKIN: Mild diaphoresis. No rash or jaundice noted. Orville West MD Past Med/Surg History Medical History Alcoholism with alcohol dependence High blood pressure TIA (transient ischemic attack) Family History Other Family history non-contributory Social History Smoking Status: Current every day smoker Tobacco Type: Cigarettes Cigarettes Per Day: 1/2 pack; Second Hand Exposure: No; Hx Alcohol Use: Yes Alcohol type: hard liquor Hx Substance Use: No Preferred Language: Yoruba Communication Ability: Effective Professional Services Specialist Required: No Beliefs That Will Affect Care: None Current Living Situation: Parent Other Information That Helps Us Care for You: No Feels Safe at Home: Yes Safety Concerns: Feels Safe At This Time Assistive Devices: None Allergies Allergies Allergy/AdvReac Type Severity Reaction Status Date / Time No Known Allergies Allergy Verified 07/18/20 19:15 Home Meds Home Medications Medication Instructions Recorded Confirmed escitalopram oxalate 10 mg tablet 10 mg PO PM 07/18/20 10/30/20 losartan 100 mg tablet 100 mg PO PM 07/18/20 10/30/20 naltrexone 50 mg tablet 50 mg PO PM 07/18/20 10/30/20 Results & Data (ED) Vital Signs Vital Signs - 24 hr 10/30/20 12:21 10/30/20 12:51 10/30/20 12:58 Temperature 36.6 C Temperature Source Temporal Artery Scan Pulse Rate 80 80 55 L Pulse Rate from SpO2 Sensor Respiratory Rate 18 18 20 Blood Pressure 137/84 Blood Pressure Mean 101 Pulse Oximetry 97 97 Sepsis Recent Fever Within 48 Hours No Sepsis New/Unexplained Change in Mental Status No Sepsis Action Taken by Nursing No Action Required 10/30/20 13:00 10/30/20 13:10 10/30/20 13:20 Temperature Temperature Source Pulse Rate 56 L 54 L 53 L Pulse Rate from SpO2 Sensor Respiratory Rate 14 14 18 Blood Pressure Blood Pressure Mean Pulse Oximetry Sepsis Recent Fever Within 48 Hours Sepsis New/Unexplained Change in Mental Status Sepsis Action Taken by Nursing 10/30/20 15:00 10/30/20 15:30 10/30/20 16:00 Temperature Temperature Source Pulse Rate 68 53 L 61 Pulse Rate from SpO2 Sensor 67 53 L 59 L Respiratory Rate 20 20 18 Blood Pressure 134/76 139/81 121/88 Blood Pressure Mean 95 100 99 Pulse Oximetry 93 95 94 Sepsis Recent Fever Within 48 Hours Sepsis New/Unexplained Change in Mental Status Sepsis Action Taken by Nursing 10/30/20 16:31 10/30/20 17:00 10/30/20 17:30 Temperature Temperature Source Pulse Rate 62 53 L 50 L Pulse Rate from SpO2 Sensor 63 53 L 51 L Respiratory Rate 18 17 20 Blood Pressure 144/80 H 139/85 138/88 Blood Pressure Mean 101 103 104 Pulse Oximetry 94 95 97 Sepsis Recent Fever Within 48 Hours Sepsis New/Unexplained Change in Mental Status Sepsis Action Taken by Nursing 10/30/20 18:00 Temperature Temperature Source Pulse Rate 65 Pulse Rate from SpO2 Sensor 58 L Respiratory Rate 21 Blood Pressure 132/89 Blood Pressure Mean 103 Pulse Oximetry 98 Sepsis Recent Fever Within 48 Hours Sepsis New/Unexplained Change in Mental Status Sepsis Action Taken by Nursing Laboratory Data Attestation: I reviewed the patient's lab results. Result diagrams: 10/30/20 12:51 10/30/20 12:51 Lab Results 10/30/20 10/30/20 10/30/20 Range/Units 12:51 12:51 12:51 WBC 5.14 (4.8-10.8) K/uL RBC 4.77 (4.7-6.1) M/uL Hgb 15.5 (14.0-18.0) g/dL Hct 44.5 (42-52) % MCV 93.3 (80-100) fL MCH 32.5 (25-34) pg MCHC 34.8 (32-36) g/dL RDW Std Deviation 47.1 H (36.4-46.3) fL RDW Coeff of Donnie 13.8 (11.5-14.5) % Plt Count 259 (130-400) K/uL MPV 10.4 (7.4-10.4) fL Immature Gran % (Auto) 0.6 % Neut % (Auto) 38.7 % Lymph % (Auto) 39.9 % [place] % (Auto) 16.3 % Eos % (Auto) 3.9 % Baso % (Auto) 0.6 % Neut # (Auto) 1.99 (1.4-6.5) K/uL Lymph # (Auto) 2.05 (1.2-3.4) K/uL [place] # (Auto) 0.84 H (0.11-0.59) K/uL Eos # (Auto) 0.20 (0-0.5) K/uL Baso # (Auto) 0.03 (0-0.2) K/uL Immature Gran # (Auto) 0.03 H (0.00-0.02) K/uL Sodium 138 (136-145) mmol/L Potassium 3.7 (3.5-5.1) mmol/L Chloride 105 (98-107) mmol/L Carbon Dioxide 24 (21-32) mmol/L Anion Gap 9.0 (3-11) BUN 15 (7-18) mg/dl Creatinine 0.85 (0.6-1.4) mg/dl Est Cr Clr Drug Dosing 123.1 ml/min Est GFR ( Amer) 124.6 ml/min Est GFR (Non-Af Amer) 107.5 ml/min BUN/Creatinine Ratio 17.5 (10-20) Glucose 87 (70-99) mg/dl Calcium 9.2 (8.5-10.1) mg/dl Total Bilirubin 0.4 (0.2-1) mg/dl Direct Bilirubin (0-0.2) mg/dl AST 45 H (15-37) U/L ALT 43 (12-78) U/L Alkaline Phosphatase 63 (45-117) U/L Total Protein 7.3 (6.4-8.2) gm/dl Albumin 3.7 (3.4-5.0) gm/dl Globulin 3.6 (2.5-4.0) gm/dl Albumin/Globulin Ratio 1.0 (0.9-2) Lipase (73-393) U/L TSH 1.210 (0.300-4.500) uIu/ml Urine Color Urine Appearance (Clear) Urine pH (4.5-7.5) Ur Specific [place] (1.000-1.030) Urine Protein (Negative) Urine Glucose (UA) (Negative) Urine Ketones (Negative) Urine Blood (Negative) Urine Nitrite (Negative) Urine Bilirubin (Negative) Urine Urobilinogen (Negative) Ur Leukocyte Esterase (Negative) Salicylates 4.1 (2.8-20) mg/dl Urine Opiates Screen (Neg) Ur Methadone, Qual (Neg) Acetaminophen < 2 L (10-30) ug/ml Urine Barbiturates (Neg) Ur Phencyclidine (PCP) (Neg) U Amphetamin/Meth Scrn (Neg) MDMA (Ecstasy) Screen (Neg) U Benzodiazepines Scrn (Neg) Ur Cocaine Metabolite (Neg) U Marijuana (THC) Screen (Neg) Ethyl Alcohol mg/dL (0-3) mg/dl COVID-19 Eval Order SARS-CoV-2 (PCR) (Negative) 10/30/20 10/30/20 10/30/20 Range/Units 12:51 12:51 14:05 WBC (4.8-10.8) K/uL RBC (4.7-6.1) M/uL Hgb (14.0-18.0) g/dL Hct (42-52) % MCV (80-100) fL MCH (25-34) pg MCHC (32-36) g/dL RDW Std Deviation (36.4-46.3) fL RDW Coeff of Donnie (11.5-14.5) % Plt Count (130-400) K/uL MPV (7.4-10.4) fL Immature Gran % (Auto) % Neut % (Auto) % Lymph % (Auto) % [place] % (Auto) % Eos % (Auto) % Baso % (Auto) % Neut # (Auto) (1.4-6.5) K/uL Lymph # (Auto) (1.2-3.4) K/uL [place] # (Auto) (0.11-0.59) K/uL Eos # (Auto) (0-0.5) K/uL Baso # (Auto) (0-0.2) K/uL Immature Gran # (Auto) (0.00-0.02) K/uL Sodium (136-145) mmol/L Potassium (3.5-5.1) mmol/L Chloride (98-107) mmol/L Carbon Dioxide (21-32) mmol/L Anion Gap (3-11) BUN (7-18) mg/dl Creatinine (0.6-1.4) mg/dl Est Cr Clr Drug Dosing ml/min Est GFR ( Amer) ml/min Est GFR (Non-Af Amer) ml/min BUN/Creatinine Ratio (10-20) Glucose (70-99) mg/dl Calcium (8.5-10.1) mg/dl Total Bilirubin (0.2-1) mg/dl Direct Bilirubin 0.1 (0-0.2) mg/dl AST (15-37) U/L ALT (12-78) U/L Alkaline Phosphatase (45-117) U/L Total Protein (6.4-8.2) gm/dl Albumin (3.4-5.0) gm/dl Globulin (2.5-4.0) gm/dl Albumin/Globulin Ratio (0.9-2) Lipase 253 (73-393) U/L TSH (0.300-4.500) uIu/ml Urine Color Urine Appearance (Clear) Urine pH (4.5-7.5) Ur Specific [place] (1.000-1.030) Urine Protein (Negative) Urine Glucose (UA) (Negative) Urine Ketones (Negative) Urine Blood (Negative) Urine Nitrite (Negative) Urine Bilirubin (Negative) Urine Urobilinogen (Negative) Ur Leukocyte Esterase (Negative) Salicylates (2.8-20) mg/dl Urine Opiates Screen (Neg) Ur Methadone, Qual (Neg) Acetaminophen (10-30) ug/ml Urine Barbiturates (Neg) Ur Phencyclidine (PCP) (Neg) U Amphetamin/Meth Scrn (Neg) MDMA (Ecstasy) Screen (Neg) U Benzodiazepines Scrn (Neg) Ur Cocaine Metabolite (Neg) U Marijuana (THC) Screen (Neg) Ethyl Alcohol mg/dL 20.0 H (0-3) mg/dl COVID-19 Eval Order Covid19 at [facility] SARS-CoV-2 (PCR) (Negative) 10/30/20 10/30/20 10/30/20 Range/Units 14:05 15:15 15:15 WBC (4.8-10.8) K/uL RBC (4.7-6.1) M/uL Hgb (14.0-18.0) g/dL Hct (42-52) % MCV (80-100) fL MCH (25-34) pg MCHC (32-36) g/dL RDW Std Deviation (36.4-46.3) fL RDW Coeff of Donnie (11.5-14.5) % Plt Count (130-400) K/uL MPV (7.4-10.4) fL Immature Gran % (Auto) % Neut % (Auto) % Lymph % (Auto) % [place] % (Auto) % Eos % (Auto) % Baso % (Auto) % Neut # (Auto) (1.4-6.5) K/uL Lymph # (Auto) (1.2-3.4) K/uL [place] # (Auto) (0.11-0.59) K/uL Eos # (Auto) (0-0.5) K/uL Baso # (Auto) (0-0.2) K/uL Immature Gran # (Auto) (0.00-0.02) K/uL Sodium (136-145) mmol/L Potassium (3.5-5.1) mmol/L Chloride (98-107) mmol/L Carbon Dioxide (21-32) mmol/L Anion Gap (3-11) BUN (7-18) mg/dl Creatinine (0.6-1.4) mg/dl Est Cr Clr Drug Dosing ml/min Est GFR ( Amer) ml/min Est GFR (Non-Af Amer) ml/min BUN/Creatinine Ratio (10-20) Glucose (70-99) mg/dl Calcium (8.5-10.1) mg/dl Total Bilirubin (0.2-1) mg/dl Direct Bilirubin (0-0.2) mg/dl AST (15-37) U/L ALT (12-78) U/L Alkaline Phosphatase (45-117) U/L Total Protein (6.4-8.2) gm/dl Albumin (3.4-5.0) gm/dl Globulin (2.5-4.0) gm/dl Albumin/Globulin Ratio (0.9-2) Lipase (73-393) U/L TSH (0.300-4.500) uIu/ml Urine Color Yellow Urine Appearance Clear (Clear) Urine pH 6.5 (4.5-7.5) Ur Specific [place] 1.016 (1.000-1.030) Urine Protein Negative (Negative) Urine Glucose (UA) Negative (Negative) Urine Ketones Negative (Negative) Urine Blood Negative (Negative) Urine Nitrite Negative (Negative) Urine Bilirubin Negative (Negative) Urine Urobilinogen Negative (Negative) Ur Leukocyte Esterase Negative (Negative) Salicylates (2.8-20) mg/dl Urine Opiates Screen Neg (Neg) Ur Methadone, Qual Neg (Neg) Acetaminophen (10-30) ug/ml Urine Barbiturates Neg (Neg) Ur Phencyclidine (PCP) Neg (Neg) U Amphetamin/Meth Scrn Neg (Neg) MDMA (Ecstasy) Screen Neg (Neg) U Benzodiazepines Scrn Neg (Neg) Ur Cocaine Metabolite Neg (Neg) U Marijuana (THC) Screen Neg (Neg) Ethyl Alcohol mg/dL (0-3) mg/dl COVID-19 Eval Order SARS-CoV-2 (PCR) NEGATIVE (Negative) Administered Medications Escitalopram Oxalate (Escitalopram Oxalate 10 Mg Tab) 10 mg PO PM DEMIAN Stop: 11/29/20 20:59 Last Admin: 10/30/20 21:03 Dose: 10 mg Documented by: [id number] Folic Acid (Folic Acid 1 Mg Tab) 1 mg PO QAM DEMIAN Stop: 11/29/20 20:31 Last Admin: 10/30/20 21:02 Dose: 1 mg Documented by: [id number] Losartan Potassium (Losartan Potassium 50 Mg Tab) 100 mg PO PM DEMIAN Stop: 11/29/20 20:59 Last Admin: 10/30/20 21:03 Dose: 100 mg Documented by: [id number] Nicotine (Nicotine 7 Mg/24 Hr Tdsy) 7 mg TD QAM DEMIAN Stop: 11/29/20 23:44 Last Admin: 10/31/20 00:08 Dose: 7 mg Documented by: [id number] Discontinued Medications Gabapentin (Gabapentin 600mg Alcohol Withdrawal Load) 1 ea PO NOW STA; Protocol Stop: 10/30/20 18:25 Last Admin: 10/30/20 21:02 Dose: 1 ea Documented by: [id number] Gabapentin (Gabapentin 600 Mg Tab) 600 mg PO NOW ONE Stop: 10/30/20 21:01 Last Admin: 10/30/20 21:02 Dose: 600 mg Documented by: [id number] Multivitamins 10 ml/ Thiamine HCl 100 mg/ Folic Acid 1 mg/Sodium Chloride 1,011.2 mls @ 1,011.2 mls/hr IV .Q1H ONE Stop: 10/30/20 14:25 Last Infusion: 10/30/20 15:23 Dose: 0 mls/hr Documented by: [id number] Admin: 10/30/20 14:26 Dose: 1,011.2 mls/hr Documented by: [id number] Thiamine HCl 200 mg/ Sodium (Chloride) 52 mls @ 208 mls/hr IV NOW STA Stop: 10/30/20 13:40 Last Infusion: 10/30/20 14:26 Dose: 0 mls/hr Documented by: [id number] Admin: 10/30/20 13:53 Dose: 208 mls/hr Documented by: [id number] Lorazepam (Ativan) 2 mg in 4 mls @ 4 mls/min IV NOW STA Stop: 10/30/20 13:27 Last Admin: 10/30/20 13:40 Dose: 4 mls/min Documented by: [id number] Lorazepam (Lorazepam 1 Mg Tab) 1 mg PO NOW STA Stop: 10/30/20 12:44 Last Admin: 10/30/20 12:47 Dose: 1 mg Documented by: [id number] Discharge Plan Visit Data Chief Complaint: Alcohol Withdrawal Stated Complaint: DIZZY, BLURRED VISION, TROUBLE WALKING ED Provider: Orville West Discharge Problem: Alcoholism with alcohol dependence, Suicide ideation, Alcohol withdrawal, Depression Patient Disposition: Admitted As Inpatient Discharge Instructions Interventions: ED Discharge Assessment Last Done: 10/30/20 19:55 Discharge Problem: Alcoholism with alcohol dependence Qualifiers: Substance use status: in withdrawal Complication of substance-induced condition: with unspecified complication Qualified Code(s): F10.239 - Alcohol dependence with withdrawal, unspecified Alcohol withdrawal Qualifiers: Complication of substance-induced condition: with unspecified complication Qualified Code(s): F10.239 - Alcohol dependence with withdrawal, unspecified Depression Qualifiers: Depression Type: unspecified Qualified Code(s): F32.9 - Major depressive disorder, single episode, unspecified
[2020-10-30] MEDS ORDERED: GABAPENTIN 600MG ALCOHOL WITHDRAWAL LOAD PO STA (18:24)
--- NOTE | 2020-10-30 18:31 | History & Physical Report ---
Date of Service October 30, 2020 Assessment & Plan (1) Alcoholism with alcohol dependence: Plan: Multiple episodes of attempting to quit - AWSS - Gabapentin load with Ativan over top for elevated scores/symptoms - Thiamine 200mg IV daily - Folate 1mg daily - Not jaundiced and no elevation in LFTs - Continue to follow (2) Suicide ideation: Plan: As per HPI- patient states he feels safe now and does not want to harm himself - suicide precautions overnight - psych consult - safe tray - continue escitalopram (3) HTN (hypertension): Plan: Continue losartan 100mg daily (4) Obesity: Plan: due to excess calories, no acute needs - lipid panel done in July - not hyperglycemic History of Present Illness Primary Care Provider: Favian Jimenes MD 40 YOM with past medical history of: ETOH abuse/misuse, obesity, depression, syncope, atypical chest pain. Patient comes into the ED today for wanting to stop using ETOH as well as thinking to himself last night "that it would be easier to stop drinking if I was ", but did not have a plan. He states that he does not think this at this time and that it "was a stupid thought, and I wouldn't come here for help if I was continuing to think that". The patient was reported tremulous in the EMD so was given Ativan. The patient was started on Naltrexone in July, which he stopped because he started drinking again. Review of history is difficult to ascertain his length of drinking, but his volume has remain consistent in each of his reports. He reports to starting to drink again this month and it has been a pint of [place] a day. Patient last drink was last night reportedly at 2300 and his ETOH level on admission is 20. His toxicology screen is also negative. He denies ever having seizures. Patient will be admitted and placed on Gabapentin and Ativan protocol, suicide precautions for 24 hours and contract for safety. Patient COVID test on admission NEGATIVE Allergies Allergy/AdvReac Type Severity Reaction Status Date / Time No Known Allergies Allergy Verified 07/18/20 19:15 Home Medications Medication Instructions Recorded Confirmed Type escitalopram oxalate 10 mg tablet 10 mg PO PM 07/18/20 10/30/20 History losartan 100 mg tablet 100 mg PO PM 07/18/20 10/30/20 History naltrexone 50 mg tablet 50 mg PO PM 07/18/20 10/30/20 History Past Med/Surg History Medical History (Updated 10/30/20 @ 18:52 by JEANNE Jacome) High blood pressure TIA (transient ischemic attack) Social History Smoking Status: Current every day smoker Tobacco Type: Cigarettes Cigarettes Per Day: 1/2 pack; Second Hand Exposure: No; Hx Alcohol Use: Yes Alcohol type: hard liquor Hx Substance Use: No Preferred Language: Micronesian Communication Ability: Effective Ship Engineer Required: No Beliefs That Will Affect Care: None Current Living Situation: Family Feels Safe at Home: Yes Assistive Devices: None Review of Systems Review of Systems: REVIEW OF SYSTEMS: Constitutional: No fever, sweats or chills Eyes: No diplopia, no worsening or blurred vision ENT: normal hearing, no trouble swallowing Respiratory: No cough, sputum, dyspnea at rest or on exertion Cardiovascular: No chest pain, tightness or palpitations Abdomen: No pain, nausea, vomiting, diarrhea or constipation Musculoskeletal: No joint pain, calf pain, swelling Neurologic: No weakness, numbness/tingling, or balance problems Psychiatric: (+) suicide ideations last night, although reports safe now Skin: No rash or itch Physical Exam Physical Exam: PHYSICAL EXAM: General: awake, alert, no apparent distress Head: Normocephalic, atraumatic ENT: PERRLA, EOMI, no pharyngeal exudate, mucous membranes moist Neuro: AAO x 3, speech clear and appropriate, strength intact bilaterally 5/5, sensation intact and equal all extremities and dermatomes, no pronator drift Chest: equal rise and fall of the chest, no accessory muscle use, no heaves or thrills, Clear to auscultation, on room air, Cardiac: Regular rate and rhythm, telemetry reviewed-NSR, skin warm dry, cap refill <3 seconds, peripheral pulses +2 no JVD, no murmur, no edema GI: NABS x 4 quadrants, soft, nontender to palpation, no rebound, guarding or tenderness : Spontaneously voiding, no pain, no CVA tenderness, Extremities: Normal inspection, no peripheral edema or erythema, calfs nontender to palpation Psych: Normal mood and affect Skin: no rash or erythema Results & Data Results & Data ([facility]) Vital Signs (Past 12 Hours) Vital Signs Temp Pulse Resp BP Pulse Ox 10/30/20 16:31 62 18 144/80 H 94 10/30/20 16:00 61 18 121/88 94 10/30/20 15:30 53 L 20 139/81 95 10/30/20 15:00 68 20 134/76 93 10/30/20 13:20 53 L 18 10/30/20 13:10 54 L 14 10/30/20 13:00 56 L 14 10/30/20 12:58 55 L 20 10/30/20 12:51 80 18 97 10/30/20 12:21 36.6 C 80 18 137/84 97 Laboratory Results Abnormal Labs 10/30/20 10/30/20 10/30/20 12:51 12:51 12:51 RDW Std Deviation 47.1 H [place] # (Auto) 0.84 H Immature Gran # (Auto) 0.03 H AST 45 H Acetaminophen < 2 L Ethyl Alcohol mg/dL 10/30/20 12:51 RDW Std Deviation [place] # (Auto) Immature Gran # (Auto) AST Acetaminophen Ethyl Alcohol mg/dL 20.0 H Medications Administered Discontinued Medications Multivitamins 10 ml/ Thiamine HCl 100 mg/ Folic Acid 1 mg/Sodium Chloride 1,011.2 mls @ 1,011.2 mls/hr IV .Q1H ONE Stop: 10/30/20 14:25 Last Infusion: 10/30/20 15:23 Dose: 0 mls/hr Documented by: [id number] Admin: 10/30/20 14:26 Dose: 1,011.2 mls/hr Documented by: [id number] Thiamine HCl 200 mg/ Sodium (Chloride) 52 mls @ 208 mls/hr IV NOW STA Stop: 10/30/20 13:40 Last Infusion: 10/30/20 14:26 Dose: 0 mls/hr Documented by: [id number] Admin: 10/30/20 13:53 Dose: 208 mls/hr Documented by: [id number] Lorazepam (Ativan) 2 mg in 4 mls @ 4 mls/min IV NOW STA Stop: 10/30/20 13:27 Last Admin: 10/30/20 13:40 Dose: 4 mls/min Documented by: [id number] Lorazepam (Lorazepam 1 Mg Tab) 1 mg PO NOW STA Stop: 10/30/20 12:44 Last Admin: 10/30/20 12:47 Dose: 1 mg Documented by: [id number] ECG Additional Comments: Pending on admit Code Status & VTE Plan Code Status CODE: FULL VTE: James Stringer VTE Prophylaxis Plan VTE Prophylaxis will be ordered: No Supervising Physician Co-Signing Physician Notes Pt seen/examined in conjunction with MASTERCAM PROGRAMMER Robert Aguilar. Orders and plan of admission reviewed. 40 y/o M Hx ETOH abuse. He was prescribed Naltrexone in July but had stopped taking it as he resumed alcohol use. He presented c/o an inability to quit drinking and also mentioned suicidal ideation the prior neha. His alcohol level on arrival was 20 and poer the ER attending, he was exhibiting tremors on arrival but responded to Ativan. Labs are unremarkable. OE: General: AAO x 3, no distress ENT: No erythema or exudates, no thrush Eyes: REBA, EOMI Head and neck: Normocephalic, atraumatic, No JVD, neck is supple. Chest/heart: Nontender, S1,2, RRR, no murmurs, no gallops Lungs: CTAB, no wheezing or crackles Abdomen: Nontender, nondistended, BS+ Neuro: AAO x 3, speech is clear, no unilateral weakness or loss of sensation, coordination intact Musculoskeletal: No joint inflammation, muscle tenderness, FROM Skin: No acute rashes or ulcers Extremities: No clubbing, cyanosis, edema P: 1) ETOH abuse and withdrawal - IVF, lorazepam, gabapentin, thiamine 2) Suicidal ideation - 1 to 1 - psych consult Full code - total time for this admit including review of labs, meds, imaging, records, EKG - discussion [facility] pt and ER attending - 36 min PG Care Time/CCT Total # of Minutes Spent Total Time Spent with Patient: Total time spent is greater than 50% in coordination of care (as documented) at patient's floor/unit and/or counseling patient: Coding Level of Care Code 66185 Initial Inpt Care Lvl 3 Diagnoses Alcoholism with alcohol dependence F10.20 Substance use status: uncomplicated Suicide ideation R45.851 HTN (hypertension) I10 Obesity E66.9 (1) Alcoholism with alcohol dependence Substance use status: uncomplicated Qualified Code(s): F10.20 - Alcohol dependence, uncomplicated
[2020-10-30] MEDS ORDERED: THIAMINE HCL 200 MG in SYRINGE 9 ML IV SCH (20:32)
[2020-10-30] MEDS ORDERED: ONDANSETRON INJ 2 MG/ML 2 ML VIAL IV PRN (20:32)
[2020-10-30] MEDS ORDERED: LORazepam 1 MG/2 ML VIAL IV PRN (20:32)
[2020-10-30] MEDS ORDERED: ATIVAN IV ALCOHOL WITHDRAWL IV PRN (20:32)
[2020-10-30] MEDS ORDERED: LORazepam 2 MG/4 ML VIAL IV PRN (20:32)
[2020-10-30] MEDS ORDERED: ACETAMINOPHEN 325 MG TAB PO PRN (20:32)
[2020-10-30] MEDS ORDERED: LORazepam 3 MG/6 ML VIAL IV PRN (20:32)
[2020-10-30] MEDS ORDERED: POLYETHYLENE (MIRALAX) 17 GM PACK PO PRN (20:32)
[2020-10-30] MEDS ORDERED: ESCITALOPRAM OXALATE 10 MG TAB PO SCH (21:00)
[2020-10-30] MEDS ORDERED: LOSARTAN POTASSIUM 50 MG TAB PO SCH (21:00)
[2020-10-30] MEDS ORDERED: GABAPENTIN 600 MG TAB PO ONE (21:00)
[2020-10-30] MEDS: FOLIC ACID 1 MG TAB PO SCH (21:02)
[2020-10-31] MEDS: NICOTINE 7 MG/24 HR TDSY TD SCH ×3 (00:04→08:19)
[2020-10-31] MEDS ORDERED: MECLIZINE HCL 25 MG TAB PO STA (01:39)
[2020-10-31 03:56] VITALS: O2SAT 97
[2020-10-31] MEDS ORDERED: GABAPENTIN 100 MG CAP PO SCH (06:00)
[2020-10-31 07:26] LABS: Basophils # (auto) 0.02 K/uL (0-0.2); Basophils % (auto) 0.3 %; Eosinophils # (auto) 0.25 K/uL (0-0.5); Eosinophils % (auto) 3.5 %; Hematocrit (blood only) 42.4 % (42-52); Hemoglobin 14.5 g/dL (14.0-18.0); Immature Granulocytes # (auto) 0.01 K/uL (0.00-0.02); Immature Granulocytes % (auto) 0.1 %; Lymphocytes # (auto) 2.26 K/uL (1.2-3.4); Lymphocytes % (auto) 31.3 %; Mean Corpuscular Hgb Conc 34.2 g/dL (32-36); Mean Corpuscular Volume 93.6 fL (80-100); Mean Platelet Volume 10.7 fL (7.4-10.4); Monocytes # (auto) 0.76 K/uL (0.11-0.59); Monocytes % (auto) 10.5 %; Neutrophils # (auto) 3.91 K/uL (1.4-6.5); Neutrophils % (auto) 54.3 %; Platelet Count 221 K/uL (130-400); RDW Coefficient of Variation 13.5 % (11.5-14.5); RDW Standard Deviation 46.7 fL (36.4-46.3); Red Blood Count 4.53 M/uL (4.7-6.1); White Blood Count 7.21 K/uL (4.8-10.8)
[2020-10-31] MEDS: FOLIC ACID 1 MG TAB PO SCH (08:19)
[2020-10-31 08:28] LABS: BUN Creatinine Ratio 16.4 (10-20); Calcium 9.1 mg/dl (8.5-10.1); Creatinine Clr Calc Pharmacy 109.1 ml/min; Est GFR (African American) 112.5 ml/min; Est GFR (Non-African American) 97.1 ml/min; Potassium 3.7 mmol/L (3.5-5.1)
[2020-10-31] MEDS ORDERED: THIAMINE HCL 200 MG in SODIUM CHLORIDE 0.9% 50 ML IV SCH (09:00)
[2020-10-31] MEDS ORDERED: ENOXAPARIN INJ 40 MG/0.4 ML SYR SQ SCH (09:00)
[2020-10-31 10:31] VITALS: BP 130/82; TEMP 98.1
--- NOTE | 2020-10-31 11:37 | Discharge Summary ---
Date of Service October 31, 2020 Admission HPI Per Admitting Provider 40 YOM with past medical history of: ETOH abuse/misuse, obesity, depression, syncope, atypical chest pain. Patient comes into the ED today for wanting to stop using ETOH as well as thinking to himself last night "that it would be easier to stop drinking if I was ", but did not have a plan. He states that he does not think this at this time and that it "was a stupid thought, and I wouldn't come here for help if I was continuing to think that". The patient was reported tremulous in the EMD so was given Ativan. The patient was started on Naltrexone in July, which he stopped because he started drinking again. Review of history is difficult to ascertain his length of drinking, but his volume has remain consistent in each of his reports. He reports to starting to drink again this month and it has been a pint of [place] a day. Patient last drink was last night reportedly at 2300 and his ETOH level on admission is 20. His toxicology screen is also negative. He denies ever having seizures. Patient will be admitted and placed on Gabapentin and Ativan protocol, suicide precautions for 24 hours and contract for safety. Patient COVID test on admission NEGATIVE Principal Diagnosis Depression, alcohol abuse Discharge Exam Constitutional WD/WN, vitals as above Eyes PERRL, conjunctivae normal, anicteric sclerae ENMT external ear and nose normal, oropharynx normal Neck trachea midline, no thyromegaly Respiratory normal respiratory effort, lungs clear to auscultation Cardiovascular RRR, no murmur, no edema Chest (Breasts) Chest: normal inspection of chest Gastrointestinal (Abdomen) normal bowel sounds, soft, nontender, no hepatosplenomegaly Musculoskeletal Extremities: extremities normal to inspection; no cyanosis and no clubbing Skin no rashes, warm and dry Neurologic moves all extremities and awake; no focal motor deficits Psychiatric A+Ox3, euthymic affect Lymphatic no lymphedema Discharge Data Allergies Allergy/AdvReac Type Severity Reaction Status Date / Time No Known Allergies Allergy Verified 07/18/20 19:15 Consultations 10/30/20 16:18 ED Decision to Admit Stat 10/30/20 20:32 Consult Psychiatry Routine 10/30/20 22:29 Consult Behavioral Health Liaison Routine Hospital Course (1) Alcoholism with alcohol dependence: Multiple episodes of attempting to quit. Is committed to sobriety again No significant signs or symptoms of EtOH withdrawal here and now over 48 hours since last drink Gabapentin helping-finish out taper after discharge over next 3 days -no alcoholic hepatitis on labs stable for dc to home on thiamine, folate, MVI f/u with AA meetings, outpt substance abuse counselor-already established with [facility] f/u with PCP (2) Suicide ideation: - patient states he feels safe now and does not want to harm himself - psych consult apprecaited-no need for inpatient stay - continue escitalopram (3) HTN (hypertension): BPs normal Continue losartan 100mg daily (4) Obesity: due to excess calories, no acute needs, BMI 32.2 - lipid panel done in July - not hyperglycemic Stable for dc to home Total Time Total Time Spent Total Time Spent (In Minutes): 35 min Total Time Includes: Examination of the Patient, Discharge Planning, Medication Reconciliation and Communication With Other Providers (Psychiatry) Discharge Plan Discharge Items Patient Disposition: Home - Self-Care Reason For Visit: ETOH USE, SUICIDE IDEATION Discharge Diagnosis: Alcohol abuse and dependence, Depression Condition on Discharge: Fair Activity: As commented below Bathing: No limitations Exercise/Sports: Gradually increase as tolerated Exercise Comment: Remain out of work until Tuesday11/04/20 Driving/Machine Use: Resume 3 days after discharge Weightbearing: Full weightbearing Non-emergency contact: Primary Care Provider and Therapist Call non-emergency contact if: you have any medication questions and your symptoms worsen Follow-up/Referrals: Favian Jimenes MD [Primary Care Provider] - (Follow up within 1 week) Diet: Heart Healthy Add Attending Provider Instructions: You were admitted for evaluation of worsening depression and alcohol withdrawal. You are feeling better and should finish out the taper down of gabapentin to help with your alcohol withdrawal symptoms. You should continue on the thiamine, folic acid, and multivitamins to improve your nutritional status that can be adversely affected by excessive alcohol use. Please follow up as planned with [facility] for therapy and continue attending your AA meetings regularly. Pending Studies at Discharge: No Stand-Alone Forms: My TRA, Work/School Release, Smoking Cessation Medications and DC Order Prescriptions: New folic acid 1 mg Tablet 1 mg PO QAM Qty: 30 RF: 0 thiamine HCl (vitamin B1) 100 mg tablet 100 mg PO DAILY Qty: 30 RF: 0 multivitamin Tablet 1 tab PO DAILY Qty: 30 RF: 0 gabapentin 100 mg capsule 400 mg PO DAILY Qty: 7 RF: 0 Continued losartan 100 mg tablet 100 mg PO PM RF: 0 escitalopram oxalate 10 mg tablet 10 mg PO PM RF: 0 naltrexone 50 mg Tablet 50 mg PO PM RF: 0 Discharge Orders: Discharge Order (Routine); Ordered 10/31/20 Ordered By: Allison Eisenberg Admission Data Admit Date/Time: 10/30/20 18:24 Attending Provider: Allison Eisenberg Admit Provider: Saeid Magana Primary Care Provider: Favian Jimenes Other Providers: Saeid Magana ; Donya Rosen ; Dr Mikie ; Dolly Robin ; Polo Cavanaugh Other Interventions: Discharge Summary Assessment (RN) Last Done: 10/31/20 12:22 Coding Level of Care Code D/C DAY MANAGEMENT >30 MINS Diagnoses Alcoholism with alcohol dependence F10.239 Complication of substance-induced condition: with unspecified complication Substance use status: in withdrawal Suicide ideation R45.851 HTN (hypertension) I10 Obesity E66.9
[2020-10-31] MEDS ORDERED: GABAPENTIN 600 MG TAB PO ONE (11:45)
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
[2020-10-31 12:27] VITALS: PULSE 49
[2020-11-01] MEDS ORDERED: GABAPENTIN 600 MG TAB PO SCH (12:00)
[2020-11-02] MEDS ORDERED: GABAPENTIN 400 MG CAP PO SCH (12:00)
[2020-11-03] MEDS ORDERED: GABAPENTIN 100 MG CAP PO SCH (12:00)
== END 2020-10-31 13:28 | disposition home or self-care (01) | DRG 897 ==
LOC: ED 12:14 → 2W 18:24 → SUATTDRO 18:24 → 2W 19:55
DX: F10.20 Alcohol dependence, uncomplicated; Z86.73 Personal history of transient ischemic attack (TIA), and cerebral infarction without residual deficits; I10 Essential (primary) hypertension; E66.9 Obesity, unspecified; F17.210 Nicotine dependence, cigarettes, uncomplicated; Z68.32 Body mass index [BMI] 32.0-32.9, adult; F32.9 Major depressive disorder, single episode, unspecified; R45.851 Suicidal ideations

== ENCOUNTER 2022-09-04 16:28 | Inpatient (IN) ==
[2022-09-04] MEDS ORDERED: CEROVITE ADV FORMULA TAB PO STA (17:18)
[2022-09-04] MEDS ORDERED: THIAMINE HCL 100 MG, FOLIC ACID 1 MG in SODIUM CHLORIDE 0.9% 1000ML 1,000 ML IV STA (17:18)
[2022-09-04 17:21] LABS: BUN Creatinine Ratio 14.3 (10-20); Calcium 9.1 mg/dl (8.6-10.3); Creatinine Clr Calc Pharmacy 92.6 ml/min; Est GFR (African American) 92.1 ml/min; Est GFR (Non-African American) 79.5 ml/min; Potassium 3.6 mmol/L (3.5-5.1)
[2022-09-04 17:30] LABS: Albumin Level 4.7 gm/dl (3.4-5.0); Bilirubin Direct 0.1 mg/dl (0-0.2); Bilirubin,Total 0.6 mg/dl (0.2-1.0)
[2022-09-04 17:31] LABS: Prothrombin Time 11.3 Seconds (9.0-12.0)
[2022-09-04 17:57] LABS: Troponin I High Sensitivity 9.4 pg/ml (0-20)
[2022-09-04] MEDS ORDERED: PANTOprazole 40 MG in SYRINGE 0 ML IV ONE (18:07)
[2022-09-04 18:37] LABS: Amphetamines+Metham, Urine Neg (Neg); Barbiturates, Urine Neg (Neg); Benzodiazepine, Urine Neg (Neg); Cocaine, Urine Neg (Neg); MDMA (Ecstacy), Urine Neg (Neg); Methadone, Urine Neg (Neg); Opiate, Urine Neg (Neg); Phencyclidine, Urine Neg (Neg)
[2022-09-04 18:39] LABS: Basophils # (auto) 0.04 K/uL (0-0.2); Basophils % (auto) 0.5 %; Eosinophils # (auto) 0.05 K/uL (0-0.50); Eosinophils % (auto) 0.6 %; Hematocrit (blood only) 48.8 % (42.0-52.0); Hemoglobin 17.5 g/dl (14.0-18.0); Immature Granulocytes # (auto) 0.03 K/uL (0.01-0.20); Immature Granulocytes % (auto) 0.3 %; Lymphocytes # (auto) 2.76 K/uL (1.2-3.4); Lymphocytes % (auto) 32.2 %; Mean Corpuscular Hemoglobin 31.2 pg (25.0-34.0); Mean Corpuscular Hgb Conc 35.9 g/dL (32.0-36.0); Mean Platelet Volume 10.3 fL (9.4-12.4); Monocytes # (auto) 0.95 K/uL (0.11-0.59); Monocytes % (auto) 11.1 %; Neutrophils # (auto) 4.75 K/uL (1.40-6.50); Neutrophils % (auto) 55.3 %; Platelet Count 321 K/uL (130-400); RDW Coefficient of Variation 13.1 % (11.5-14.5); Red Blood Count 5.61 M/uL (4.70-6.10); White Blood Count 8.58 K/ul (4.8-10.8)
[2022-09-04 18:41] LABS: Appearance Urine Cloudy (Clear); Bacteria Urine Automated Negative (Negative); Bilirubin Urine Negative (Negative); Blood Urine Negative (Negative); Color Urine Dark Yellow; Glucose Urine UA Negative (Negative); Ketones Urine Trace (Negative); Leukocyte Esterase Urine Negative (Negative); Nitrite Urine Negative (Negative); Protein Urine 2+ (Negative); RBC Urine Automated 0-4 /hpf (0-4); Specific Gravity Urine 1.021 (1.000-1.030); Urobilinogen Urine Negative (Negative); pH Urine 5.5 (4.5-7.5)
--- NOTE | 2022-09-04 18:43 | Emergency Department Note ---
Impression & Plan Alcoholic intoxication, Alcohol abuse ED Provider Note ED Provider Note NAME: JOHN JACKSON AGE:42 SEX: Male : 1980 ARRIVES VIA: Private vehicle INFORMANT: Patient ED PROVIDER(s): Magnolia Cunningham DO CHIEF COMPLAINT: Concern for detox HPI: This is a 42-year-old male presents emergency department due to concern for detox from alcohol. Patient states he drinks 1/5 of whiskey daily. He states he recently tried to go to inpatient rehab for his ongoing alcohol abuse. He states he also has difficulty with PTSD which she feels like contributes to his use of alcohol as a coping mechanism. He states he does not currently see any other outpatient mental health providers. He denies any history of alcohol with drawal related seizures or DTs. He denies any history of pancreatitis, but does admit to gastritis/peptic ulcer disease. He states he has not recently had any black or bloody stools or hematemesis. Patient was noted by nursing staff to be hallucinating prior to my evaluation. PAST MEDICAL HISTORY:See Below PAST SURGICAL HISTORY:See Below FAMILY HISTORY:See Below SOCIAL HISTORY:See Below HOME MEDICATIONS:See Below ALLERGIES:See Below VITALS:See Below PHYSICAL EXAMINATION: GENERAL: alert, well appearing, well nourished, no distress, non-toxic EYE EXAM: normal conjunctiva, PERRL and EOM's grossly intact OROPHARYNX: no exudate, no erythema, lips, buccal mucosa, and tongue normal and mucous membranes are dry NECK: supple, no nuchal rigidity, no adenopathy, non-tender LUNGS: Clear to auscultation. Normal chest wall mechanics, no w/r/r HEART: no murmurs, S1 normal and S2 normal ABDOMEN: abdomen soft, non-tender, normo-active bowel sounds, no masses, no rebound or guarding. BACK: Back is symmetrical on inspection and there is no deformity, no midline tenderness, no CVA tenderness. SKIN: no rashes, petechiae, orbruising UPPER EXTREMITIES: upper extremities are grossly normal. FROM, nml pulses b/l. LOWER EXTREMITIES: No pitting edema. FROM, nml pulses b/l. NEURO EXAM: Normal sensorium, cranial nerves II-XII grossly intact, normal speech, no facial droop,nogross weakness of arms, no gross weakness of legs. Gross sensation intact. No ataxia. Vital Signs: reviewed and remarkable Differential Diagnosis: Differential diagnosis includes etiologies such as alcohol intoxication, toxicologic, infection, hypoglycemia, electrolyte abnormalities, cardiac sources, intracerebral event, neurologic, as well as others were entertained. MEDICAL DECISION MAKING: THis is a 42 yo male who presents to the ER requesting detox and with concern for etoh withdrawal. He was anxious appearing and tachycardic, other VS stable. Labs drawn and sent, IV established, EKG performed and interpreted at bedside, and patient placed on telemetry. He was started on IVF, banana bag, IV proton ix, and IV valium. He received multiple doses of IV valium while in the ER. Due to significant hx of ETOH abuse and large requirements of IV valium to help with agitation, case discussed with the hospitalist for additional evaluation and treatment. Consultation(s): 2100: Discussed with Dr. Still. ER Treatment Provided: See below Diagnostics Interpreted By Me: -ECG: sinus tachycardia at 119, nml axis, nml intervals, no acute ST/T wave changes -Cardiac Monitoring: An order was placed for continuous cardiac monitoring. The monitor shows a rate of 108 with sinus tachycardia rhythm. -Laboratory studies: As stated above and show below. -Imaging studies: CT head: no obvious ICH Triage Nursing Note Reviewed Prior/Outside Records Reviewed - prior DC summary Past Med/Surg History Medical History Alcoholism with alcohol dependence High blood pressure TIA (transient ischemic attack) Surgical History No pertinent past surgical history Family History Other Family history non-contributory Social History Smoking Status: Current every day smoker Tobacco Type: Cigarettes Cigarettes Per Day: 1/2 pack; Second Hand Exposure: Yes; Do You Dip or Chew Tobacco: No; Hx Alcohol Use: Yes Alcohol type: hard liquor Hx Substance Use: No Preferred Language: Com[place]an Communication Ability: Effective Intern Architect Required: No Beliefs That Will Affect Care: None Current Living Situation: Spouse and Family Other Information That Helps Us Care for You: No Feels Safe at Home: Yes Safety Concerns: Feels Safe At This Time Assistive Devices: None Allergies Allergies Allergy/AdvReac Type Severity Reaction Status Date / Time No Known Allergies Allergy Verified 09/04/22 19:41 Home Meds Home Medications Medication Instructions Recorded Confirmed losartan 100 mg tablet 100 mg PO DAILY 07/18/20 09/04/22 naltrexone 50 mg tablet 50 mg PO PM 07/18/20 09/04/22 clonidine HCl 0.1 mg tablet 0.1 mg PO DAILY 08/12/21 09/04/22 folic acid 1 mg tablet 1 mg PO DAILY 08/12/21 09/04/22 multivitamin 1 tab PO DAILY 08/12/21 09/04/22 thiamine HCl (vitamin B1) 100 mg 1 tab PO DAILY 08/12/21 09/04/22 tablet (Vitamin B-1) escitalopram oxalate 20 mg tablet 20 mg PO DAILY 09/04/22 09/04/22 hydroxyzine pamoate 50 mg capsule 50 mg PO DAILY 09/04/22 09/04/22 Results & Data (ED) Vital Signs Vital Signs - 24 hr 09/04/22 17:56 09/04/22 18:41 09/04/22 18:47 Temperature Temperature Source Pulse Rate 108 H Pulse Rate [Left Apical] Pulse Rate [Right Finger] 124 H Pulse Rate from SpO2 Sensor Pulse Rhythm [Left Apical] Pulse Rhythm [Right Finger] Pulse Strength [Left Apical] Respiratory Rate 15 Respiratory Depth Blood Pressure Blood Pressure [Left Arm] 128/95 Blood Pressure Mean Blood Pressure Mean [Left Arm] 106 Pulse Oximetry 97 95 Oxygen Delivery Method Room Air 09/04/22 19:13 09/04/22 20:12 09/04/22 21:26 Temperature 36.8 C Temperature Source Axillary Pulse Rate Pulse Rate [Left Apical] 97 H Pulse Rate [Right Finger] 120 H 91 H Pulse Rate from SpO2 Sensor Pulse Rhythm [Left Apical] Regular Pulse Rhythm [Right Finger] Regular Pulse Strength [Left Apical] Normal Respiratory Rate 19 28 H 18 Respiratory Depth Normal Blood Pressure Blood Pressure [Left Arm] 138/93 158/95 H 136/92 Blood Pressure Mean Blood Pressure Mean [Left Arm] 108 116 106 Pulse Oximetry 97 95 100 Oxygen Delivery Method Room Air Room Air Room Air 09/04/22 21:37 09/04/22 21:46 09/04/22 22:00 Temperature Temperature Source Pulse Rate 90 97 H 99 H Pulse Rate [Left Apical] Pulse Rate [Right Finger] Pulse Rate from SpO2 Sensor Pulse Rhythm [Left Apical] Pulse Rhythm [Right Finger] Pulse Strength [Left Apical] Respiratory Rate 20 22 Respiratory Depth Blood Pressure 107/71 130/98 Blood Pressure [Left Arm] Blood Pressure Mean 83 108 Blood Pressure Mean [Left Arm] Pulse Oximetry 98 93 Oxygen Delivery Method Room Air Room Air 09/04/22 22:15 09/04/22 22:20 Temperature Temperature Source Pulse Rate 100 H 106 H Pulse Rate [Left Apical] Pulse Rate [Right Finger] Pulse Rate from SpO2 Sensor 104 H Pulse Rhythm [Left Apical] Pulse Rhythm [Right Finger] Pulse Strength [Left Apical] Respiratory Rate 15 13 Respiratory Depth Blood Pressure 131/85 Blood Pressure [Left Arm] Blood Pressure Mean 100 Blood Pressure Mean [Left Arm] Pulse Oximetry 96 96 Oxygen Delivery Method Room Air Laboratory Data 09/04/22 18:21 09/04/22 16:40 Lab Results 09/04/22 09/04/22 09/04/22 Range/Units 16:40 16:40 16:40 WBC (4.8-10.8) K/ul RBC (4.70-6.10) M/uL Hgb (14.0-18.0) g/dl Hct (42.0-52.0) % MCV (80.0-100.0) fL MCH (25.0-34.0) pg MCHC (32.0-36.0) g/dL RDW Std Deviation (36.4-46.3) fL RDW Coeff of Donnie (11.5-14.5) % Plt Count (130-400) K/uL MPV (9.4-12.4) fL Immature Gran % (Auto) % Neut % (Auto) % Lymph % (Auto) % [place] % (Auto) % Eos % (Auto) % Baso % (Auto) % Neut # (Auto) (1.40-6.50) K/uL Lymph # (Auto) (1.2-3.4) K/uL [place] # (Auto) (0.11-0.59) K/uL Eos # (Auto) (0-0.50) K/uL Baso # (Auto) (0-0.2) K/uL Immature Gran # (Auto) (0.01-0.20) K/uL PT 11.3 (9.0-12.0) Seconds INR 1.0 (0.9-1.1) Sodium 141 (136-145) mmol/L Potassium 3.6 (3.5-5.1) mmol/L Chloride 102 (98-107) mmol/L Carbon Dioxide 22 (21-32) mmol/L Anion Gap 17 H (3-11) BUN 16 (6-23) mg/dl Creatinine 1.12 (0.6-1.4) mg/dl Est Cr Clr Drug Dosing 92.6 ml/min Est GFR ( Amer) 92.1 ml/min Est GFR (Non-Af Amer) 79.5 ml/min BUN/Creatinine Ratio 14.3 (10-20) Glucose 99 (70-99(Fasting)) mg/dl Calcium 9.1 (8.6-10.3) mg/dl Magnesium 2.0 (1.7-2.4) mg/dl Total Bilirubin 0.6 (0.2-1.0) mg/dl Direct Bilirubin 0.1 (0-0.2) mg/dl AST 24 (13-39) U/L ALT 25 (7-52) U/L Alkaline Phosphatase 92 (34-104) U/L Troponin I High Sens 9.4 (0-20) pg/ml Total Protein 8.0 (6.0-8.3) gm/dl Albumin 4.7 (3.4-5.0) gm/dl Lipase 65 (11-82) U/L Urine Color Urine Appearance (Clear) Urine pH (4.5-7.5) Ur Specific [place] (1.000-1.030) Urine Protein (Negative) Urine Glucose (UA) (Negative) Urine Ketones (Negative) Urine Blood (Negative) Urine Nitrite (Negative) Urine Bilirubin (Negative) Urine Urobilinogen (Negative) Ur Leukocyte Esterase (Negative) Urine WBC (Auto) (0-5) /hpf Urine RBC (Auto) (0-4) /hpf U Hyaline Cast (Auto) (0-5) /lpf U Epithel Cells (Auto) (0-5) /lpf Urine Bacteria (Auto) (Negative) Urine Opiates Screen (Neg) Ur Methadone, Qual (Neg) Urine Barbiturates (Neg) Ur Phencyclidine (PCP) (Neg) U Amphetamin/Meth Scrn (Neg) MDMA (Ecstasy) Screen (Neg) U Benzodiazepines Scrn (Neg) Ur Cocaine Metabolite (Neg) U Marijuana (THC) Screen (Neg) Ethyl Alcohol mg/dL 329.1 H (<10.0) mg/dl SARS-CoV-2, RNA, NAAT (NEGATIVE) 09/04/22 09/04/22 09/04/22 Range/Units 17:55 17:55 18:21 WBC 8.58 (4.8-10.8) K/ul RBC 5.61 (4.70-6.10) M/uL Hgb 17.5 (14.0-18.0) g/dl Hct 48.8 (42.0-52.0) % MCV 87.0 (80.0-100.0) fL MCH 31.2 (25.0-34.0) pg MCHC 35.9 (32.0-36.0) g/dL RDW Std Deviation 41.0 (36.4-46.3) fL RDW Coeff of Donnie 13.1 (11.5-14.5) % Plt Count 321 (130-400) K/uL MPV 10.3 (9.4-12.4) fL Immature Gran % (Auto) 0.3 % Neut % (Auto) 55.3 % Lymph % (Auto) 32.2 % [place] % (Auto) 11.1 % Eos % (Auto) 0.6 % Baso % (Auto) 0.5 % Neut # (Auto) 4.75 (1.40-6.50) K/uL Lymph # (Auto) 2.76 (1.2-3.4) K/uL [place] # (Auto) 0.95 H (0.11-0.59) K/uL Eos # (Auto) 0.05 (0-0.50) K/uL Baso # (Auto) 0.04 (0-0.2) K/uL Immature Gran # (Auto) 0.03 (0.01-0.20) K/uL PT (9.0-12.0) Seconds INR (0.9-1.1) Sodium (136-145) mmol/L Potassium (3.5-5.1) mmol/L Chloride (98-107) mmol/L Carbon Dioxide (21-32) mmol/L Anion Gap (3-11) BUN (6-23) mg/dl Creatinine (0.6-1.4) mg/dl Est Cr Clr Drug Dosing ml/min Est GFR ( Amer) ml/min Est GFR (Non-Af Amer) ml/min BUN/Creatinine Ratio (10-20) Glucose (70-99(Fasting)) mg/dl Calcium (8.6-10.3) mg/dl Magnesium (1.7-2.4) mg/dl Total Bilirubin (0.2-1.0) mg/dl Direct Bilirubin (0-0.2) mg/dl AST (13-39) U/L ALT (7-52) U/L Alkaline Phosphatase (34-104) U/L Troponin I High Sens (0-20) pg/ml Total Protein (6.0-8.3) gm/dl Albumin (3.4-5.0) gm/dl Lipase (11-82) U/L Urine Color Dark Yellow Urine Appearance Cloudy A (Clear) Urine pH 5.5 (4.5-7.5) Ur Specific [place] 1.021 (1.000-1.030) Urine Protein 2+ H (Negative) Urine Glucose (UA) Negative (Negative) Urine Ketones Trace H (Negative) Urine Blood Negative (Negative) Urine Nitrite Negative (Negative) Urine Bilirubin Negative (Negative) Urine Urobilinogen Negative (Negative) Ur Leukocyte Esterase Negative (Negative) Urine WBC (Auto) 5-10 H (0-5) /hpf Urine RBC (Auto) 0-4 (0-4) /hpf U Hyaline Cast (Auto) 10-30 H (0-5) /lpf U Epithel Cells (Auto) 20-30 H (0-5) /lpf Urine Bacteria (Auto) Negative (Negative) Urine Opiates Screen Neg (Neg) Ur Methadone, Qual Neg (Neg) Urine Barbiturates Neg (Neg) Ur Phencyclidine (PCP) Neg (Neg) U Amphetamin/Meth Scrn Neg (Neg) MDMA (Ecstasy) Screen Neg (Neg) U Benzodiazepines Scrn Neg (Neg) Ur Cocaine Metabolite Neg (Neg) U Marijuana (THC) Screen Neg (Neg) Ethyl Alcohol mg/dL (<10.0) mg/dl SARS-CoV-2, RNA, NAAT (NEGATIVE) 09/04/22 Range/Units 20:54 WBC (4.8-10.8) K/ul RBC (4.70-6.10) M/uL Hgb (14.0-18.0) g/dl Hct (42.0-52.0) % MCV (80.0-100.0) fL MCH (25.0-34.0) pg MCHC (32.0-36.0) g/dL RDW Std Deviation (36.4-46.3) fL RDW Coeff of Donnie (11.5-14.5) % Plt Count (130-400) K/uL MPV (9.4-12.4) fL Immature Gran % (Auto) % Neut % (Auto) % Lymph % (Auto) % [place] % (Auto) % Eos % (Auto) % Baso % (Auto) % Neut # (Auto) (1.40-6.50) K/uL Lymph # (Auto) (1.2-3.4) K/uL [place] # (Auto) (0.11-0.59) K/uL Eos # (Auto) (0-0.50) K/uL Baso # (Auto) (0-0.2) K/uL Immature Gran # (Auto) (0.01-0.20) K/uL PT (9.0-12.0) Seconds INR (0.9-1.1) Sodium (136-145) mmol/L Potassium (3.5-5.1) mmol/L Chloride (98-107) mmol/L Carbon Dioxide (21-32) mmol/L Anion Gap (3-11) BUN (6-23) mg/dl Creatinine (0.6-1.4) mg/dl Est Cr Clr Drug Dosing ml/min Est GFR ( Amer) ml/min Est GFR (Non-Af Amer) ml/min BUN/Creatinine Ratio (10-20) Glucose (70-99(Fasting)) mg/dl Calcium (8.6-10.3) mg/dl Magnesium (1.7-2.4) mg/dl Total Bilirubin (0.2-1.0) mg/dl Direct Bilirubin (0-0.2) mg/dl AST (13-39) U/L ALT (7-52) U/L Alkaline Phosphatase (34-104) U/L Troponin I High Sens (0-20) pg/ml Total Protein (6.0-8.3) gm/dl Albumin (3.4-5.0) gm/dl Lipase (11-82) U/L Urine Color Urine Appearance (Clear) Urine pH (4.5-7.5) Ur Specific [place] (1.000-1.030) Urine Protein (Negative) Urine Glucose (UA) (Negative) Urine Ketones (Negative) Urine Blood (Negative) Urine Nitrite (Negative) Urine Bilirubin (Negative) Urine Urobilinogen (Negative) Ur Leukocyte Esterase (Negative) Urine WBC (Auto) (0-5) /hpf Urine RBC (Auto) (0-4) /hpf U Hyaline Cast (Auto) (0-5) /lpf U Epithel Cells (Auto) (0-5) /lpf Urine Bacteria (Auto) (Negative) Urine Opiates Screen (Neg) Ur Methadone, Qual (Neg) Urine Barbiturates (Neg) Ur Phencyclidine (PCP) (Neg) U Amphetamin/Meth Scrn (Neg) MDMA (Ecstasy) Screen (Neg) U Benzodiazepines Scrn (Neg) Ur Cocaine Metabolite (Neg) U Marijuana (THC) Screen (Neg) Ethyl Alcohol mg/dL (<10.0) mg/dl SARS-CoV-2, RNA, NAAT NEGATIVE (NEGATIVE) Administered Medications Chlordiazepoxide HCl (Chlordiazepoxide Hcl 25 Mg Cap) 50 mg PO Q6H DEMIAN Stop: 09/05/22 18:01 Last Admin: 09/05/22 13:00 Dose: 50 mg Documented By: Admin: 09/05/22 06:13 Dose: 50 mg Documented By: Admin: 09/05/22 00:06 Dose: 50 mg Documented By: ASHLEE Clonidine HCl (Clonidine Hcl 0.1 Mg Tab) 0.1 mg PO DAILY DEMIAN Stop: 10/05/22 08:59 Last Admin: 09/05/22 08:26 Dose: 0.1 mg Documented By: RUBEN Escitalopram Oxalate (Escitalopram Oxalate 20 Mg Tab) 20 mg PO DAILY [facility] Stop: 10/05/22 08:59 Last Admin: 09/05/22 08:25 Dose: 20 mg Documented By: RUBEN Hydroxyzine HCl (Hydroxyzine Hcl 25 Mg Tab) 50 mg PO DAILY [facility] Stop: 10/05/22 08:59 Last Admin: 09/05/22 08:25 Dose: 50 mg Documented By: RUBEN Folic Acid 1 mg/ Syringe 10 mls @ 5 mls/min IV QAM [facility] Stop: 10/05/22 08:59 Last Admin: 09/05/22 08:26 Dose: 5 mls/min Documented By: RUBEN Thiamine HCl 500 mg/ Sodium (Chloride) 55 mls @ 210 mls/hr IV Q8 [facility] Stop: 10/05/22 05:59 Last Admin: 09/05/22 14:52 Dose: 210 mls/hr Documented By: Infusion: 09/05/22 06:41 Dose: 0 mls/hr Documented By: Admin: 09/05/22 06:15 Dose: 210 mls/hr Documented By: ASHLEE Lorazepam (Lorazepam 2 Mg/1 Ml Vial) 1 mg IV UD PRN; Protocol PRN Reason: EtOH Withdrawal AWSS Score 6,7 Stop: 10/04/22 23:24 Last Admin: 09/05/22 04:12 Dose: 1 mg Documented By: Admin: 09/05/22 02:10 Dose: 1 mg Documented By: Admin: 09/05/22 00:02 Dose: 1 mg Documented By: ASHLEE Losartan Potassium (Losartan Potassium 50 Mg Tab) 100 mg PO DAILY [facility] Stop: 10/05/22 08:59 Last Admin: 09/05/22 08:24 Dose: 100 mg Documented By: RUBEN Miscellaneous (Remove Nicoderm Patch) 1 each N/A DAILY@0859 [facility] Stop: 10/05/22 08:58 Last Admin: 09/05/22 08:27 Dose: 1 each Documented By: RUBEN Nicotine (Nicotine 21 Mg/24 Hr Tdsy) 21 mg TD QAM [facility] Stop: 10/05/22 08:59 Last Admin: 09/05/22 08:26 Dose: 21 mg Documented By: RUBEN Discontinued Medications Diazepam (Diazepam 5 Mg/Ml Inj 10ml Vial) 5 mg IV NOW STA Stop: 09/04/22 17:19 Last Admin: 09/04/22 17:28 Dose: 5 mg Documented By: CANDIDO Diazepam (Diazepam 5 Mg/Ml Inj 10ml Vial) 5 mg IV NOW STA Stop: 09/04/22 18:08 Last Admin: 09/04/22 18:27 Dose: 5 mg Documented By: CANDIDO Diazepam (Diazepam 5 Mg/Ml Inj 10ml Vial) 5 mg IV NOW STA Stop: 09/04/22 19:31 Last Admin: 09/04/22 19:43 Dose: 5 mg Documented By: SEBASTIAN Diazepam (Diazepam 5 Mg/Ml Inj 10ml Vial) 10 mg IV NOW STA Stop: 09/04/22 20:02 Last Admin: 09/04/22 20:31 Dose: 10 mg Documented By: SALUD Diazepam (Diazepam 5 Mg/Ml Inj 10ml Vial) 5 mg IV NOW STA Stop: 09/04/22 21:29 Last Admin: 09/04/22 21:42 Dose: 5 mg Documented By: SALUD Thiamine HCl 100 mg/ Folic (Acid 1 mg/ Sodium Chloride) 1,001.2 mls @ 250 mls/hr IV .Q4H1M STA; Protocol Stop: 09/04/22 21:18 Last Infusion: 09/04/22 23:30 Dose: 250 mls/hr Documented By: Infusion: 09/04/22 23:27 Dose: 0 mls/hr Documented By: Admin: 09/04/22 18:59 Dose: 250 mls/hr Documented By: CANDIDO Pantoprazole Sodium 40 mg/ (Syringe) 10 mls @ 5 mls/min IV NOW ONE Stop: 09/04/22 18:08 Last Admin: 09/04/22 19:00 Dose: 5 mls/min Documented By: CANDIDO Lactated Ringer's (Lr) 1,000 mls @ 200 mls/hr IV .Q5H [facility] Stop: 10/04/22 18:44 Last Infusion: 09/05/22 00:09 Dose: 0 mls/hr Documented By: Infusion: 09/04/22 23:30 Dose: 0 mls/hr Documented By: Infusion: 09/04/22 23:30 Dose: 0 mls/hr Documented By: Admin: 09/04/22 20:32 Dose: 200 mls/hr Documented By: SALUD Lorazepam (Lorazepam 2 Mg/1 Ml Vial) 3 mg IV ONCE PRN; Protocol PRN Reason: EtOH Withdrawal AWSS Score 10+ Last Admin: 09/05/22 09:39 Dose: 3 mg Documented By: MTP Multivitamins/Minerals (Cerovite Adv Formula Tab) 1 tab PO ONE STA Stop: 09/04/22 17:19 Last Admin: 09/04/22 17:27 Dose: 1 tab Documented By: CANDIDO Nicotine (Nicotine 21 Mg/24 Hr Tdsy) Confirm Administered Dose 21 mg TD .STK-MED ONE Stop: 09/04/22 18:57 Last Admin: 09/04/22 18:59 Dose: 21 mg Documented By: CANDIDO Nicotine (Nicotine 21 Mg/24 Hr Tdsy) 21 mg TD NOW STA Stop: 09/04/22 20:13 Last Admin: 09/04/22 21:25 Dose: Not Given Documented By: [facility] Discharge Plan Visit Data Chief Complaint: Detox Request Stated Complaint: DETOX REQUEST, ED Provider: Magnolia Cunningham Discharge Problem: Alcoholic intoxication, Alcohol abuse Patient Disposition: Admitted As Inpatient Discharge Instructions Interventions: ED Discharge Assessment Last Done: 09/04/22 23:07
[2022-09-04] MEDS ORDERED: LACTATED RINGER'S 1,000 ML IV SCH (18:45)
[2022-09-04 18:55] LABS: Epithelial Cell Urine Auto 20-30 /lpf (0-5)
[2022-09-04] MEDS ORDERED: NICOTINE 21 MG/24 HR TDSY TD ONE (18:56)
[2022-09-04] MEDS ORDERED: NICOTINE 21 MG/24 HR TDSY TD STA (20:12)
--- NOTE | 2022-09-04 21:39 | History & Physical Report ---
Date of Service September 04, 2022 Assessment & Plan (1) Alcohol withdrawal: Plan: 42yo male with history of ongoing EtOH abuse presents with EtOH withdrawal. Patient admits to drinking 1/5 of whiskey daily (appx 16 drinks). Last drink 09/04/22 AM. No history of complicated EtOH withdrawals. He has been given 30mg IV Valium thus far as well as banana bag. ER reports question of hallucinations upon arrival to the ER. Now denies any hallucinations. -Admit to PCU -Maintain seizure precautions -Continue IV Ativan as needed per AWSS protocol -Librium taper -Thiamine 500mg IV TID for now -Continue Folic acid daily -Continue Clonidine 0.1mg po daily -Nicotine patch -Case Management consultation after medically stable for possible rehab (2) Depression: Plan: Patient reports longstanding history of depression and PTSD, poorly controlled with current medication regimen -Continue Escitalopram 20mg po daily -Continue Hydroxyzine 50mg po daily -Consider Prazosin for reported PTSD night terrors (3) HTN (hypertension): Plan: Blood pressure improved at present -Continue PO Clonidine 0.1mg daily -Continue Losartan 100mg po daily F/E/N - Heplock. Electroltyes WNL. NPO for now, advance as tolerated Ppx - Low risk for DVT Code - Full Dispo - Admit to PCU History of Present Illness Chief Complaint: EtOH withdrawal Primary Care Provider: Favian Jimenes MD Alexandru Mix is a 42yo male with history of HTN, Depression, PTSD and EtOH abuse presenting with EtOH withdrawal. Patient has been drinking 1/5 of whiskey daily for the last couple of week (appx 16 drinks per day). His last drink was this AM 09/04/22 prior to arrival to the hospital. Patient with history of mild alcohol withdrawal - denies DTs or seizures. He does get shakes sometimes in the morning. He has been to alcohol rehabilitation 5x in the past. Last at [facility] in April 2022. History of depression and PTSD from past childhood trauma. Patient is taking Escitalopram 20mg po daily but reports it is not helping. He has been taking this medication for approximately 1 year and has not been on any other psychiatric agents prior to this. He reports persistent nightmares and poor sleep secondary to his PTSD. He denies suicidal or homicidal ideation. In the ER he is afebrile, evidence of acute withdrawals ER Course: Valium IV 5mg + 5mg +5mg +5mg +10 mg - total 30mg IV Valium Protonix Banana bag Nicotine patch LR Allergies Allergy/AdvReac Type Severity Reaction Status Date / Time No Known Allergies Allergy Verified 09/04/22 19:41 Home Medications Medication Instructions Recorded Confirmed Type losartan 100 mg tablet 100 mg PO DAILY 07/18/20 09/04/22 History naltrexone 50 mg tablet 50 mg PO PM 07/18/20 09/04/22 History clonidine HCl 0.1 mg tablet 0.1 mg PO DAILY 08/12/21 09/04/22 History folic acid 1 mg tablet 1 mg PO DAILY 08/12/21 09/04/22 History multivitamin 1 tab PO DAILY 08/12/21 09/04/22 History thiamine HCl (vitamin B1) 100 mg 1 tab PO DAILY 08/12/21 09/04/22 History tablet (Vitamin B-1) escitalopram oxalate 20 mg tablet 20 mg PO DAILY 09/04/22 09/04/22 History hydroxyzine pamoate 50 mg capsule 50 mg PO DAILY 09/04/22 09/04/22 History Past Med/Surg History Medical History Alcoholism with alcohol dependence High blood pressure TIA (transient ischemic attack) Surgical History No pertinent past surgical history Family History Other Family history non-contributory Social History Smoking Status: Current every day smoker Tobacco Type: Cigarettes Cigarettes Per Day: 1/2 pack; Second Hand Exposure: Yes; Do You Dip or Chew Tobacco: No; Hx Alcohol Use: Yes Alcohol type: hard liquor Hx Substance Use: No Preferred Language: Chadian Communication Ability: Effective Steam Box Hand Required: No Beliefs That Will Affect Care: None Current Living Situation: Spouse and Family Other Information That Helps Us Care for You: No Feels Safe at Home: Yes Safety Concerns: Feels Safe At This Time Assistive Devices: Glasses Review of Systems Review of Systems: All systems reviewed & are unremarkable except as noted in HPI & below Physical Exam Physical Exam: General: patient resting comfortably, NAD, non-toxic in appearance, AA&O x 4 Skin: warm, dry, intact, no rashes or lesions HEENT: NC/AT, PERRL, EOMI, anicteric sclera, conjunctiva without injection, external ear normal to inspection and nontender, nares patent, moist mucus membranes, dentition intact, no oropharyngeal lesions, neck supple, trachea midline, no LAD, no thyromegaly, no JVD Heart: +S1/S2, regular, no m/r/g Lungs: equal air entry bilaterally, no rales/rhonchi/wheezes Abd: +BS, soft, NT/ND, no masses/organomegaly/ascites Ext: warm, 2+ pulses in UE/LE bilaterally, no clubbing/cyanosis or edema Neuro: nonfocal, patient AA&O x 4, speech intact, no facial droop, moving all extremities on command with equal strength 5/5 Results & Data Results & Data Vital Signs (Past 12 Hours) Vital Signs Temp Pulse Pulse Pulse Resp BP BP 09/04/22 21:26 91 H 18 136/92 09/04/22 20:12 36.8 C 120 H 28 H 158/95 H 09/04/22 19:13 97 H 19 138/93 09/04/22 18:47 124 H 15 128/95 09/04/22 18:41 09/04/22 17:56 108 H 09/04/22 16:34 36.6 C 108 H 18 130/92 Pulse Ox O2 Del Method 09/04/22 21:26 100 Room Air 09/04/22 20:12 95 Room Air 09/04/22 19:13 97 Room Air 09/04/22 18:47 95 Room Air 09/04/22 18:41 97 09/04/22 17:56 09/04/22 16:34 96 Room Air Laboratory Results Laboratory Results WBC 8.58 K/ul (4.8-10.8) 09/04/22 18:21 RBC 5.61 M/uL (4.70-6.10) 09/04/22 18:21 Hgb 17.5 g/dl (14.0-18.0) 09/04/22 18:21 Hct 48.8 % (42.0-52.0) 09/04/22 18:21 MCV 87.0 fL (80.0-100.0) 09/04/22 18: MCH 31.2 pg (25.0-34.0) 09/04/22 18: MCHC 35.9 g/dL (32.0-36.0) 09/04/22 18: RDW Std Deviation 41.0 fL (36.4-46.3) 09/04/22 18: RDW Coeff of Donnie 13.1 % (11.5-14.5) 09/04/22 18: Plt Count 321 K/uL (130-400) 09/04/22 18: MPV 10.3 fL (9.4-12.4) 09/04/22 18: Immature Gran % (Auto) 0.3 % 09/04/22 18: Neut % (Auto) 55.3 % 09/04/22 18:21 Lymph % (Auto) 32.2 % 09/04/22 18:21 [place] % (Auto) 11.1 % 09/04/22 18:21 Eos % (Auto) 0.6 % 09/04/22 18:21 Baso % (Auto) 0.5 % 09/04/22 18: Neut # (Auto) 4.75 K/uL (1.40-6.50) 09/04/22 18:21 Lymph # (Auto) 2.76 K/uL (1.2-3.4) 09/04/22 18:21 [place]eman # (Auto) 0.95 K/uL (0.11-0.59) H 09/04/22 18: Eos # (Auto) 0.05 K/uL (0-0.50) 09/04/22 18: Baso # (Auto) 0.04 K/uL (0-0.2) 09/04/22 18: Immature Gran # (Auto) 0.03 K/uL (0.01-0.20) 09/04/22 18: PT 11.3 Seconds (9.0-12.0) 09/04/22 16:40 INR 1.0 (0.9-1.1) 09/04/22 16:40 Sodium 141 mmol/L (136-145) 09/04/22 16:40 Potassium 3.6 mmol/L (3.5-5.1) 09/04/22 16:40 Chloride 102 mmol/L (98-107) 09/04/22 16:40 Carbon Dioxide 22 mmol/L (21-32) 09/04/22 16:40 Anion Gap 17 (3-11) H 09/04/22 16:40 BUN 16 mg/dl (6-23) 09/04/22 16:40 Creatinine 1.12 mg/dl (0.6-1.4) 09/04/22 16:40 Est Cr Clr Drug Dosing 92.6 ml/min 09/04/22 16:40 Est GFR ( Amer) 92.1 ml/min 09/04/22 16:40 Est GFR (Non-Af Amer) 79.5 ml/min 09/04/22 16:40 BUN/Creatinine Ratio 14.3 (10-20) 09/04/22 16:40 Glucose 99 mg/dl (70-99(Fasting)) 09/04/22 16:40 Calcium 9.1 mg/dl (8.6-10.3) 09/04/22 16:40 Magnesium 2.0 mg/dl (1.7-2.4) 09/04/22 16:40 Total Bilirubin 0.6 mg/dl (0.2-1.0) 09/04/22 16:40 Direct Bilirubin 0.1 mg/dl (0-0.2) 09/04/22 16:40 AST 24 U/L (13-39) 09/04/22 16:40 ALT 25 U/L (7-52) 09/04/22 16:40 Alkaline Phosphatase 92 U/L (34-104) 09/04/22 16:40 Troponin I High Sens 9.4 pg/ml (0-20) 09/04/22 16:40 Total Protein 8.0 gm/dl (6.0-8.3) 09/04/22 16:40 Albumin 4.7 gm/dl (3.4-5.0) 09/04/22 16:40 Lipase 65 U/L (11-82) 09/04/22 16:40 Urine Color Dark Yellow 09/04/22 17:55 Urine Appearance Cloudy (Clear) A 09/04/22 17:55 Urine pH 5.5 (4.5-7.5) 09/04/22 17:55 Ur Specific [place] 1.021 (1.000-1.030) 09/04/22 17:55 Urine Protein 2+ (Negative) H 09/04/22 17:55 Urine Glucose (UA) Negative (Negative) 09/04/22 17:55 Urine Ketones Trace (Negative) H 09/04/22 17:55 Urine Blood Negative (Negative) 09/04/22 17:55 Urine Nitrite Negative (Negative) 09/04/22 17:55 Urine Bilirubin Negative (Negative) 09/04/22 17:55 Urine Urobilinogen Negative (Negative) 09/04/22 17:55 Ur Leukocyte Esterase Negative (Negative) 09/04/22 17:55 Urine WBC (Auto) 5-10 /hpf (0-5) H 09/04/22 17:55 Urine RBC (Auto) 0-4 /hpf (0-4) 09/04/22 17:55 U Hyaline Cast (Auto) 10-30 /lpf (0-5) H 09/04/22 17:55 U Epithel Cells (Auto) 20-30 /lpf (0-5) H 09/04/22 17:55 Urine Bacteria (Auto) Negative (Negative) 09/04/22 17:55 Urine Opiates Screen Neg (Neg) 09/04/22 17:55 Ur Methadone, Qual Neg (Neg) 09/04/22 17:55 Urine Barbiturates Neg (Neg) 09/04/22 17:55 Ur Phencyclidine (PCP) Neg (Neg) 09/04/22 17:55 U Amphetamin/Meth Scrn Neg (Neg) 09/04/22 17:55 MDMA (Ecstasy) Screen Neg (Neg) 09/04/22 17:55 U Benzodiazepines Scrn Neg (Neg) 09/04/22 17:55 Ur Cocaine Metabolite Neg (Neg) 09/04/22 17:55 U Marijuana (THC) Screen Neg (Neg) 09/04/22 17:55 Ethyl Alcohol mg/dL 329.1 mg/dl (<10.0) H 09/04/22 16:40 SARS-CoV-2, RNA, NAAT NEGATIVE (NEGATIVE) 09/04/22 20:[address] 09/04/22 19:30 Exam(s): CT HEAD Without Contrast EXAM: CT Head Without Intravenous Contrast CLINICAL HISTORY: Reason for exam: ams. TECHNIQUE: Axial computed tomography images of the head/brain without intravenous contrast. CTDI is 36.05 mGy and DLP is 547.75 mGy-cm. Automated exposure control was utilized for the study. A dose lowering technique was utilized adhering to the principles of ALARA. COMPARISON: CT head 07/18/20 FINDINGS: Brain: Patchy small regions of cerebral white matter hypodensity are similar to prior. Giraldo-white matter differentiation maintained. No acute intracranial hemorrhage, mass-effect, or edema. Ventricles: Unremarkable. No hydrocephalus. Bones/joints: Unremarkable. No acute fracture. Soft tissues: Unremarkable. Sinuses: Unremarkable as visualized. No acute sinusitis. Mastoid air cells: Unremarkable as visualized. No mastoid effusion. IMPRESSION: 1. No acute intracranial process. 2. Patchy cerebral white matter hypodensities are similar to prior exam, nonspecific, most commonly seen in the setting of chronic small vessel ischemic disease. Electronically signed by: Michoacano Berrios M.D. 09/04/22 21:38 PM ECG Additional Comments: EKG with sinus tachycardia at 119 bpm, no acute ischemic changes PG Care Time/CCT Total # of Minutes Spent Total Time Spent with Patient: Total time spent is greater than 50% in coordination of care (as documented) at patient's floor/unit and/or counseling patient: Coding Level of Care Code 93733 INT INP/OBS CARE 3/75MIN Diagnoses Alcohol withdrawal F10.239 Depression F32.9 Depression Type: unspecified HTN (hypertension) I10 (2) Depression Depression Type: unspecified Qualified Code(s): F32.9 - Major depressive disorder, single episode, unspecified
[2022-09-04] MEDS ORDERED: chlordiazePOXIDE ALCOHOL WITHDRAWL 50MG PO STA (23:25)
[2022-09-04] MEDS ORDERED: LORazepam 2 MG/1 ML VIAL IV PRN ×2 (23:25)
[2022-09-04] MEDS ORDERED: Ativan IV Alcohol Withdrawal--Active Protocol IV PRN (23:25)
[2022-09-05] MEDS ORDERED: chlordiazePOXIDE HCl 25 MG CAP PO SCH
[2022-09-05] MEDS: LORazepam 2 MG/1 ML VIAL IV PRN ×3 (00:02→04:12)
[2022-09-05] MEDS: chlordiazePOXIDE HCl 25 MG CAP PO SCH ×4 (00:06→23:05)
[2022-09-05] MEDS: THIAMINE HCL 500 MG in SODIUM CHLORIDE 0.9% 50 ML IV SCH ×3 (06:15→22:47)
[2022-09-05 06:19] LABS: Mean Corpuscular Hemoglobin 31.3 pg (25.0-34.0); Mean Corpuscular Hgb Conc 35.7 g/dL (32.0-36.0); Mean Corpuscular Volume 87.5 fL (80.0-100.0); Mean Platelet Volume 10.1 fL (9.4-12.4); Platelet Count 223 K/uL (130-400); RDW Standard Deviation 41.5 fL (36.4-46.3); White Blood Count 5.49 K/ul (4.8-10.8)
[2022-09-05 06:43] LABS: Albumin Level 3.8 gm/dl (3.4-5.0); BUN Creatinine Ratio 17.5 (10-20); Bilirubin Direct 0.3 mg/dl (0-0.2); Bilirubin,Total 1.4 mg/dl (0.2-1.0); Calcium 8.7 mg/dl (8.6-10.3); Creatinine Clr Calc Pharmacy 101.9 ml/min; Est GFR (African American) 101.9 ml/min; Est GFR (Non-African American) 87.9 ml/min; Potassium 3.5 mmol/L (3.5-5.1); Total Protein 6.6 gm/dl (6.0-8.3)
--- NOTE | 2022-09-05 07:34 | Hospitalist Progress Note ---
Date of Service September 05, 2022 Assessment & Plan (1) Alcohol withdrawal: Plan: 42yo male with history of ongoing EtOH abuse presents with EtOH withdrawal. Patient admits to drinking 1/5 of whiskey daily (appx 16 drinks). Last drink 09/04/22 AM. No history of complicated EtOH withdrawals. He has been given 30mg IV Valium in the ED and has required multiple doses of ativan since admisison for AWSS protocol Alcohol withdrawal AWSS score around 4. -Continue IV Ativan as needed per AWSS protocol -Librium taper -Maintain seizure precautions Severe AUD Has been on naltrexone which has been effective. Had quit taking it. -Thiamine 500mg IV TID for now -Continue Folic acid daily -Case Management consultation after medically stable for possible rehab -[facility] has already accepted patient whenever he is medically stable Depression Patient reports longstanding history of depression and PTSD, poorly controlled with current medication regimen -Continue Escitalopram 20mg po daily -Continue Hydroxyzine 50mg po daily -Continue PO Clonidine 0.1mg daily. On it for ?impulsivity. HTN Blood pressure improved at present -Continue Losartan 100mg po daily Tob use ds -Nicotine patch F/E/N - Heplock. Electroltyes WNL. Regular Ppx - Low risk for DVT Code - Full Dispo - PCU (2) Depression: (3) HTN (hypertension): Admission and Anticipated Discharge Date Admission Date: September 04, 2022 Supervising Physician Co-Signing Physician Notes Resident Physician Supervision Note: I independently interviewed and examined the patient and verified the keane history and physical, reviewed labs and image studies and agree with resident findings and care plan. Subjective Patient seen at bedside this morning. Patient did require Ativan overnight with 3, 1 mg doses and a 3 mg dose this morning at 9:40 AM. Patient appears anxious and talks rather fast, however, he states that he had his last alcoholic drink a few days ago and not yesterday which is written in the HPI. However, patient had a confirmed high alcohol concentration in his blood in the ED last night indicating his alcohol use is more recent than he is stating. Overall though has no other complaints at this time, just wants to get back into a rehab. Review of Systems Review of Systems: All systems reviewed & are unremarkable except as noted in HPI & below Physical Exam Constitutional: well developed and well nourished; no acute distress Eyes: + anicteric sclerae Respiratory: normal respiratory effort, lungs clear to auscultation Cardiovascular: Rate/Rhythm: regular rate and regular rhythm Gastrointestinal (Abdomen): normal bowel sounds, soft, nontender, no hepatosplenomegaly Musculoskeletal: Head/Neck/Chest: head atraumatic Skin: no rashes, warm and dry Neurologic: moves all extremities Motor/Sensory: + tremor Psychiatric: Orientation: alert and oriented x 3 Affect: + anxious affect Results & Data Results & Data Vital Signs (Past 12 Hours) Vital Signs Temp Pulse Pulse Pulse Resp BP BP 09/05/22 07:25 36.8 C 71 19 124/82 09/05/22 06:00 36.8 C 81 16 132/81 09/05/22 04:00 36.6 C 83 18 158/76 H 09/05/22 00:00 96 H 09/05/22 02:05 36.9 C 96 H 20 140/71 09/04/22 23:33 36.9 C 99 H 18 116/80 09/04/22 23:25 36.9 C 99 H 18 116/80 09/04/22 23:25 09/04/22 22:20 106 H 13 09/04/22 22:15 100 H 15 131/85 09/04/22 22:00 99 H 22 130/98 09/04/22 21:46 97 H 20 107/71 09/04/22 21:37 90 09/04/22 21:26 91 H 18 136/92 09/04/22 20:12 36.8 C 120 H 28 H 158/95 H Pulse Ox Pulse Ox O2 Del Method O2 Del Method 09/05/22 07:25 97 Room Air 09/05/22 06:00 96 Room Air 09/05/22 04:00 94 Room Air 09/05/22 00:00 09/05/22 02:05 92 Room Air 09/04/22 23:33 96 Room Air 09/04/22 23:25 96 Room Air 09/04/22 23:25 96 Room Air 09/04/22 22:20 96 09/04/22 22:15 96 Room Air 09/04/22 22:00 93 Room Air 09/04/22 21:46 98 Room Air 09/04/22 21:37 09/04/22 21:26 100 Room Air 09/04/22 20:12 95 Room Air (2) Depression Depression Type: unspecified Qualified Code(s): F32.9 - Major depressive disorder, single episode, unspecified
[2022-09-05] MEDS: LOSARTAN POTASSIUM 50 MG TAB PO SCH (08:24)
[2022-09-05] MEDS: hydrOXYzine HCl 25 MG TAB PO SCH (08:25)
[2022-09-05] MEDS: ESCITALOPRAM OXALATE 20 MG TAB PO SCH (08:25)
[2022-09-05] MEDS: NICOTINE 21 MG/24 HR TDSY TD SCH (08:26)
[2022-09-05] MEDS: FOLIC ACID 1 MG in SYRINGE 9.8 ML IV SCH (08:26)
[2022-09-05] MEDS: cloNIDine HCL 0.1 MG TAB PO SCH (08:26)
[2022-09-05] MEDS ORDERED: THIAMINE HCL 500 MG in SYRINGE 9 ML IV SCH (09:00)
[2022-09-05] MEDS ORDERED: LORazepam 2 MG/1 ML VIAL IV STA (18:11)
[2022-09-06] MEDS: chlordiazePOXIDE HCl 25 MG CAP PO SCH ×2 (02:13→09:44)
[2022-09-06] MEDS: THIAMINE HCL 500 MG in SODIUM CHLORIDE 0.9% 50 ML IV SCH (06:28)
--- NOTE | 2022-09-06 07:17 | Hospitalist Progress Note ---
Date of Service September 06, 2022 Assessment & Plan (1) Alcohol withdrawal: Plan: 42yo male with history of ongoing EtOH abuse presents with EtOH withdrawal. Patient admits to drinking 1/5 of whiskey daily (appx 16 drinks). Last drink 09/04/22 AM. No history of complicated EtOH withdrawals. He has been given 30mg IV Valium in the ED and has required multiple doses of ativan since admisison for AWSS protocol -Admitted to PCU for concern of alcohol withdrawal -Maintain seizure precautions -Continue IV Ativan as needed per AWSS protocol -Librium taper -Thiamine 500mg IV TID for now -Continue home clonidine -Continue Folic acid daily -Nicotine patch -Case Management consultation after medically stable for possible rehab -[facility] has already accepted patient whenever he is medically stable (2) Depression: Plan: Patient reports longstanding history of depression and PTSD, poorly controlled with current medication regimen -Continue Escitalopram 20mg po daily -Continue Hydroxyzine 50mg po daily (3) HTN (hypertension): Plan: Blood pressure improved at present -Continue PO Clonidine 0.1mg daily -Continue Losartan 100mg po daily F/E/N - Heplock. Electrolytes WNL. Regular Ppx - Low risk for DVT Code - Full Admission and Anticipated Discharge Date Admission Date: September 04, 2022 Review of Systems Review of Systems: As per above Physical Exam Physical Exam: Constitutional: well-appearing, no acute distress HEENT: NCAT, no conjunctival injection CV: regular rhythm, no murmur appreciated, extremities well-perfused, no LE edema Resp: CTABL, no wheezes/rales/rhonchi appreciated, no increased work of breathing GI: soft, nondistended, nontender, BS normoactive MSK: no gross deformities appreciated Skin: warm, dry, no rash appreciated Neuro: alert, oriented, no focal neurologic deficit appreciated Results & Data Results & Data Vital Signs (Past 12 Hours) Vital Signs Temp Pulse Pulse Pulse Resp BP Pulse Ox 09/06/22 00:00 72 09/06/22 02:59 36.5 C 61 18 122/82 95 09/05/22 22:33 36.7 C 73 15 118/81 95 O2 Del Method 09/06/22 00:00 09/06/22 02:59 Room Air 09/05/22 22:33 Room Air Resident Activity Tracking Resident Involvement: Resident Care Provided Care Provided: Adult Hospital Medicine (2) Depression Depression Type: unspecified Qualified Code(s): F32.9 - Major depressive disorder, single episode, unspecified
[2022-09-06 07:34] LABS: Mean Corpuscular Volume 88.7 fL (80.0-100.0); Mean Platelet Volume 10.7 fL (9.4-12.4); Platelet Count 192 K/uL (130-400); RDW Coefficient of Variation 13.1 % (11.5-14.5); RDW Standard Deviation 42.3 fL (36.4-46.3); Red Blood Count 4.51 M/uL (4.70-6.10); White Blood Count 5.37 K/ul (4.8-10.8)
[2022-09-06 08:04] LABS: Albumin Globulin Ratio 1.4 (0.9-2); Albumin Level 3.5 gm/dl (3.4-5.0); BUN Creatinine Ratio 21.5 (10-20); Bilirubin,Total 0.8 mg/dl (0.2-1.0); Calcium 8.6 mg/dl (8.6-10.3); Creatinine Clr Calc Pharmacy 99.2 ml/min; Est GFR (African American) 97.3 ml/min; Globulin 2.5 gm/dl (2.5-4.0); Magnesium 1.9 mg/dl (1.7-2.4); Potassium 3.6 mmol/L (3.5-5.1)
[2022-09-06] MEDS: NICOTINE 21 MG/24 HR TDSY TD SCH (08:15)
[2022-09-06] MEDS: FOLIC ACID 1 MG in SYRINGE 9.8 ML IV SCH (08:15)
[2022-09-06] MEDS: LOSARTAN POTASSIUM 50 MG TAB PO SCH (08:15)
[2022-09-06] MEDS: cloNIDine HCL 0.1 MG TAB PO SCH (08:15)
[2022-09-06] MEDS: hydrOXYzine HCl 25 MG TAB PO SCH (08:16)
[2022-09-06] MEDS: ESCITALOPRAM OXALATE 20 MG TAB PO SCH (08:16)
[2022-09-06] MEDS ORDERED: chlordiazePOXIDE HCl 25 MG CAP PO ONE (12:09)
--- NOTE | 2022-09-06 13:16 | Discharge Summary ---
Date of Service September 06, 2022 Admission HPI Per Admitting Provider Alexandru Mix is a 42yo male with history of HTN, Depression, PTSD and EtOH abuse presenting with EtOH withdrawal. Patient has been drinking 1/5 of whiskey daily for the last couple of week (appx 16 drinks per day). His last drink was this AM 09/04/22 prior to arrival to the hospital. Patient with history of mild alcohol withdrawal - denies DTs or seizures. He does get shakes sometimes in the morning. He has been to alcohol rehabilitation 5x in the past. Last at [facility] in April 2022. History of depression and PTSD from past childhood trauma. Patient is taking Escitalopram 20mg po daily but reports it is not helping. He has been taking this medication for approximately 1 year and has not been on any other psychiatric agents prior to this. He reports persistent nightmares and poor sleep secondary to his PTSD. He denies suicidal or homicidal ideation. In the ER he is afebrile, evidence of acute withdrawals ER Course: Valium IV 5mg + 5mg +5mg +5mg +10 mg - total 30mg IV Valium Protonix Banana bag Nicotine patch LR Principal Diagnosis Alcohol Withdrawal Discharge Exam Constitutional: well-appearing, no acute distress HEENT: NCAT, no conjunctival injection CV:extremities well-perfused, no LE edema Resp: no increased work of breathing MSK: no gross deformities appreciated Skin: warm, dry, no rash appreciated Neuro: alert, oriented, no focal neurologic deficit appreciated Discharge Data Allergies Allergy/AdvReac Type Severity Reaction Status Date / Time No Known Allergies Allergy Verified 09/04/22 19:41 Consultations 09/04/22 21:04 ED Decision to Admit Stat Ordered Studies 09/04/22 19:30 CT head/brain wo con Stat Hospital Course (1) Alcohol withdrawal: 42yo male with history of ongoing EtOH abuse presents with EtOH withdrawal. Patient admits to drinking 1/5 of whiskey daily (appx 16 drinks). Last drink 09/04/22 AM. No history of complicated EtOH withdrawals. Alcohol withdrawal - states his last drink was 3-4 days prior to presentation, ETOH level in ED= 329 - He has been given 30mg IV Valium in the ED and has required multiple doses of Ativan since admission for AWSS protocol. - AWSS has been 0 prior to d/c - Last dose of Ativan 09/06 1799 -Librium taper completed; 100mg given prior to dc Severe AUD Has been on naltrexone which has been effective. Had quit taking it. -Received Thiamine 500mg IV, plan to continue to replete orally -Continue Folic acid daily x 4 doses, continue to replete orally -[facility] has already accepted patient and he is medically stable for transfer Depression Patient reports longstanding history of depression and PTSD, poorly controlled with current medication regimen -Continue Escitalopram 20mg po daily -Continue Hydroxyzine 50mg po daily -Continue PO Clonidine 0.1mg daily. HTN Blood pressure well controlled -Continue Losartan 100mg po daily Tob use ds -Nicotine patch (2) Depression: (3) HTN (hypertension): Total Time Total Time Spent Total Time Spent (In Minutes): <30 Discharge Plan Discharge Items Patient Disposition: Drug & Alcohol Rehab Reason For Visit: ETOH WITHDRAWAL Discharge Diagnosis: ETOH withdrawal Activity: Per Instructions section Non-emergency contact: Primary Care Provider Call non-emergency contact if: you have any medication questions and your symptoms worsen Follow-up/Referrals: Favian Jimenes MD [Primary Care Provider] - Diet: Regular Addtl Attending Provider Instructions: 42yo male with history of ongoing EtOH abuse presents with EtOH withdrawal. Patient admits to drinking 1/5 of whiskey daily (appx 16 drinks). Last drink 09/04/22 AM. No history of complicated EtOH withdrawals. Alcohol withdrawal - states his last drink was 3-4 days ago, ETOH level in ED= 329 - He has been given 30mg IV Valium in the ED and has required multiple doses of Ativan since admission for AWSS protocol. - AWSS has been 0 - Last dose of Ativan 09/06 1799 -Librium taper completed; 100mg given prior to dc Severe AUD Has been on naltrexone which has been effective. Had quit taking it. -Received Thiamine 500mg IV -Continue Folic acid daily x 4 doses, continue to replete orally -[facility] has already accepted patient and he is medically stable for transfer Depression Patient reports longstanding history of depression and PTSD, poorly controlled with current medication regimen -Continue Escitalopram 20mg po daily -Continue Hydroxyzine 50mg po daily -Continue PO Clonidine 0.1mg daily. HTN Blood pressure improved at present -Continue Losartan 100mg po daily Tob use ds -Nicotine patch Pending Studies at Discharge: No Stand-Alone Forms: [facility] [employer] Skilled Items Patient informed of condition?: Yes DNR: No Discharge Level of Care: Other Communicable Disease: No Discharge Prognosis: Improving Lines: None Urinary Catheter: No Medications and DC Order Prescriptions: Continued losartan 100 mg tablet 100 mg PO DAILY naltrexone 50 mg Tablet 50 mg PO PM multivitamin Tablet 1 tab PO DAILY clonidine HCl 0.1 mg tablet 0.1 mg PO DAILY thiamine HCl (vitamin B1) [Vitamin B-1] 100 mg Tablet 1 tab PO DAILY folic acid 1 mg tablet 1 mg PO DAILY hydroxyzine pamoate 50 mg capsule 50 mg PO DAILY escitalopram oxalate 20 mg tablet 20 mg PO DAILY Discharge Orders: Discharge Order (Routine); Ordered 09/06/22 Ordered By: Carlie Eagle Admission Data Admit Date/Time: 09/04/22 22:36 Attending Provider: Stanton Prince Admit Provider: Debbie Still Primary Care Provider: Favian Jimenes Other Providers: Debbie Still Other Interventions: Discharge Summary Assessment (RN) Last Done: 09/06/22 12:54 Supervising Physician Co-Signing Physician Notes I personally examined the patient and verified all keane points of history and exam, discussed case, and agree with decision making with Dr Eagle feeling anxious. does want to go to rehab vitals noted nad heent nc at mmm breathing unlabored no accessory muscles good effort skin no rashes no pallor or icterus neuro no focal deficits EtOH abuse, depression/anxiety - safe for rehab. discussed anxiety/depression management as probable contributor to help lessen stimuli for EtOH abuse otherwise as above Resident Activity Tracking Resident Involvement: Resident Care Provided Care Provided: Adult Hospital Medicine
--- NOTE | 2022-09-06 18:46 | Billing Data ---
Date of Service September 06, 2022 Coding Level of Care Code 50955 IN/OBS DISCH 30 MIN/LESS
[2022-09-07] MEDS ORDERED: chlordiazePOXIDE HCl 25 MG CAP PO SCH (02:00)
--- NOTE | 2022-09-07 06:47 | Electrocardiogram Report ---
Test Reason : Blood Pressure : / mmHG Vent. Rate : 119 BPM Atrial Rate : 119 BPM P-R Int : 124 ms QRS Dur : 086 ms QT Int : 332 ms P-R-T Axes : 032 012 015 degrees QTc Int : 467 ms Sinus tachycardia Otherwise normal ECG When compared with ECG of 16-APR-2022 05:25, No significant change was found Confirmed by David Bhat ([id number]) on 09/07/2022 6:46:57 AM Referred By: REFERRED SELF Confirmed By:David Bhat
== END 2022-09-06 14:00 | disposition alcohol treatment (31) | DRG 897 ==
LOC: ED 16:28 → 2S 22:36 → SUATTDRO 22:36 → 2S 23:07

== ENCOUNTER 2023-01-03 20:22 | Inpatient (IN) ==
[2023-01-03] MEDS ORDERED: MULTI-VITAMIN INFUSION 10 ML, THIAMINE HCL 100 MG, FOLIC ACID 1 MG in SODIUM CHLORIDE 0... IV ONE (22:02)
[2023-01-03 22:23] LABS: Basophils # (auto) 0.04 K/uL (0.00-0.20); Basophils % (auto) 0.5 %; Eosinophils # (auto) 0.12 K/uL (0.00-0.50); Eosinophils % (auto) 1.5 %; Hematocrit (blood only) 44.2 % (42.0-52.0); Hemoglobin 15.3 g/dl (14.0-18.0); Immature Granulocytes # (auto) 0.03 K/uL (0.01-0.20); Immature Granulocytes % (auto) 0.4 %; Lymphocytes # (auto) 2.39 K/uL (1.20-3.40); Lymphocytes % (auto) 29.4 %; Mean Corpuscular Hgb Conc 34.6 g/dL (32.0-36.0); Mean Corpuscular Volume 89.5 fL (80.0-100.0); Mean Platelet Volume 10.6 fL (9.4-12.4); Monocytes # (auto) 0.71 K/uL (0.11-0.59); Monocytes % (auto) 8.7 %; Neutrophils # (auto) 4.83 K/uL (1.40-6.50); Neutrophils % (auto) 59.5 %; Platelet Count 269 K/uL (130-400); RDW Coefficient of Variation 14.2 % (11.5-14.5); RDW Standard Deviation 45.8 fL (36.4-46.3); Red Blood Count 4.94 M/uL (4.70-6.10); White Blood Count 8.12 K/ul (4.8-10.8)
--- NOTE | 2023-01-03 22:26 | Emergency Department Note ---
Impression & Plan Alcohol withdrawal, Alcoholism with alcohol dependence ED Provider Note CHIEF COMPLAINT: Alcohol withdrawal HISTORY OF PRESENTING ILLNESS: This 42-year-old male patient presents to the emergency department for evaluation of an alcohol withdrawal. The patient has tried to quit drinking multiple times without success. The patient has been seen in the emergency department multiple times for alcohol withdrawal and has required high doses of Valium to control his symptoms. The patient was in rehab at [facility] in [place] for 4 months and was discharged 3 weeks ago. He had also been in rehab at [facility] in [place] earlier this year. He typically drinks 1/5 of whiskey a day and restarted drinking this amount the day after he got out of rehab 3 weeks ago. The patient states that he does well while he is in treatment, but he is unable to sustain sobriety on his own after discharge. The patient states that he really wants to quit drinking, but has trouble with his willpower once he gets out of rehab. His last alcohol use was 12 hours ago. He denies any drug use. He is currently having nausea, headache, photosensitivity, shakiness, and hot and cold flashes. He states that these are his typical symptoms of withdrawal. However, these symptoms are not as severe as they are sometimes. He denies any chest pain, shortness of breath, abdominal pain, vomiting, or urinary symptoms. He denies any fever, cough, or URI symptoms. REVIEW OF SYSTEMS: See HPI for pertinent positives and pertinent negatives. ALLERGIES: NKDA MEDICATIONS: See below PAST MEDICAL HISTORY: See below PHYSICAL EXAM: VITALS: Vitals are noted on the nurse's note and reviewed by myself. GENERAL: The patient is somewhat jittery and anxious on exam consistent with withdrawal symptoms. Non toxic, no acute distress, non-diaphoretic. SKIN: Capillary refill <2 sec. EYES: PERRLA. EOMI. Conjunctivae without injection, sclerae without icterus. NOSE: Patent without discharge. MOUTH: Mucous membranes moist. Uvula midline. Airway patent. NECK: Supple without nuchal rigidity. HEART: Regular rate and rhythm without murmurs gallops or rubs. LUNGS: Clear to auscultation bilaterally without wheezes, rales or rhonchi. No retractions or accessory muscle use. ABDOMEN: Positive bowel sounds x 4. Normal tympanic percussion. Soft, nontender. No masses or organomegaly. Ocampo sign negative. No guarding or rebound tenderness. No focal RLQ or LLQ tenderness. MUSCULOSKELETAL: No gross musculoskeletal defects. NEURO: Patient was alert and oriented. No focal neurological deficits. DIFFERENTIAL DIAGNOSIS: Differential diagnosis includes etiologies such as alcohol intoxication, toxicologic, infection, hypoglycemia, electrolyte abnormalities, cardiac sources, intracerebral event, neurologic, as well as others were entertained. ED COURSE AND MEDICAL DECISION MAKING: MONITOR: Continuous library monitor: Order was placed for continuous library monitor. Patient was placed on the library monitor and continuous pulse ox. Patient was noted to be in normal sinus rhythm at an initial rate of 78 bpm per my interpretation. The patient was found to have a couple short episodes of V. tach on the monitor. Dr. Cunningham went into evaluate the patient when this was found on the monitor and the patient states that he felt like his heart was beating weird at that time. The patient states that he has had runs of V. tach in the past especially during withdrawal. The patient denies any chest pain or shortness of breath. EKG: Initial EKG was an abnormal tracing due to the amount of chest hair. Nursing staff did shave some of his chest here with a much improved EKG tracing. EKG was interpreted by myself as normal sinus rhythm at 75 bpm with no acute [address] or T wave changes. MEDICATIONS GIVEN: Zofran 4 mg IV, Protonix 40 mg IV, Pepcid 20 mg IV, a total of Valium 20 mg IV, banana bag hydration supplement. INTERPRETATION OF LABS: I interpreted the labs with full lab results as below in the lab section of this note. CBC was normal. CMP with a BUN of 27, but otherwise normal. TSH normal. Salicylates and acetaminophen levels were negative. Medical alcohol level is 93.7. Urinalysis with trace ketones, but no evidence for infection. Urine drug screen was positive for benzodiazepines, but the urine sample was obtained after the patient had been given the Valium in the emergency department. CONSULTATIONS: On-call hospitalist MDM SUMMARY: I examined the patient. An IV lock was placed and labs were drawn. The patient has a history of alcohol abuse with frequent episodes of alcohol withdrawal when he tries to quit drinking. The patient has been to rehab many times and was discharged from rehab approximately 3 weeks ago. The patient states that he does well while he is in treatment, but relapses as soon as he is discharged. The patient started drinking 1/5 of whiskey a day again just after being discharged from rehab 3 weeks ago. The patient's last drink was approximately 12 hours ago per patient and he wishes to quit drinking alcohol. He is currently experiencing withdrawal symptoms and has had to have high doses of Valium in the past for his withdrawal symptoms as Ativan does not usually work initially per patient. The patient was medicated as above with some improvement of his withdrawal symptoms. The patient was observed in the emergency department, but continue to need high doses of Valium to control his symptoms. Therefore, the patient will require admission for further management of his withdrawal symptoms. He did have a few short episodes of V. tach on the monitor where he was symptomatic. The patient was independently evaluated by Dr. Cunningham, who evaluated the patient after these episodes of V. tach. The patient states that he has had these episodes in the past as well. I spoke with the on-call hospitalist who agreed to admit the patient for further management. Please refer to their dictation for further details. The patient's care was transferred in stable condition. DIAGNOSIS: Alcohol withdrawal Alcoholism with alcohol dependence Past Med/Surg History Medical History (Updated 01/04/23 @ 07:50 by Emilie Harris PA-C) Alcoholism with alcohol dependence GERD (gastroesophageal reflux disease) High blood pressure TIA (transient ischemic attack) Surgical History No pertinent past surgical history Family History Other Family history non-contributory Social History Smoking Status: Current every day smoker Tobacco Type: Cigarettes Cigarettes Per Day: 1/2 pack; Second Hand Exposure: No; Do You Dip or Chew Tobacco: No; Tobacco Cessation Education Requested by Patient: No Hx Alcohol Use: Yes Alcohol type: hard liquor Hx Substance Use: No Preferred Language: Canadian Communication Ability: 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 Beliefs That Will Affect Care: None Current Living Situation: Spouse and Family Feels Safe at Home: Yes Safety Concerns: Feels Safe At This Time Assistive Devices: Glasses and Hospital Bed Allergies Allergies Allergy/AdvReac Type Severity Reaction Status Date / Time No Known Allergies Allergy Verified 01/03/23 22:14 Home Meds Home Medications Medication Instructions Recorded Confirmed losartan 100 mg tablet 100 mg PO DAILY 07/18/20 01/03/23 naltrexone 50 mg tablet 50 mg PO PM 07/18/20 01/03/23 folic acid 1 mg tablet 1 mg PO DAILY 08/12/21 01/03/23 multivitamin 1 tab PO DAILY 08/12/21 01/03/23 thiamine HCl (vitamin B1) 100 mg 1 tab PO DAILY 08/12/21 01/03/23 tablet (Vitamin B-1) escitalopram oxalate 20 mg tablet 20 mg PO DAILY 09/04/22 01/03/23 cariprazine 1.5 mg capsule 1.5 mg PO DAILY 01/03/23 01/03/23 (Vraylar) clonidine HCl 0.1 mg tablet 0.1 mg PO TID 01/03/23 01/03/23 hydroxyzine pamoate 25 mg capsule 25 mg PO BID PRN Anxiety 01/03/23 01/03/23 melatonin 10 mg sublingual tablet 10 mg sublingual HS 01/03/23 01/03/23 Results & Data (ED) Vital Signs Vital Signs - 24 hr 01/03/23 20:27 01/03/23 21:05 01/03/23 21:30 Temperature 36.6 C Temperature Source Temporal Artery Scan Pulse Rate 87 70 75 Pulse Rate from SpO2 Sensor Respiratory Rate 16 18 Respiratory Effort / Characteristics Non-Labored Spontaneous Respiratory Depth Normal Blood Pressure 158/94 H 164/104 H Blood Pressure Mean 115 124 Blood Pressure Position Sitting Pulse Oximetry 95 95 Oxygen Delivery Method Room Air Oxygen Flow Rate Sepsis Recent Fever Within 48 Hours No Sepsis New/Unexplained Change in Mental Status N/A Sepsis Action Taken by Nursing No Action Required Oxygen Flow Rate - Titration Pulse Oximetry Post Tiitration 01/03/23 22:00 01/03/23 22:30 01/03/23 22:30 Temperature Temperature Source Pulse Rate 76 77 Pulse Rate from SpO2 Sensor 76 Respiratory Rate 15 18 Respiratory Effort / Characteristics Respiratory Depth Blood Pressure 166/103 H 158/92 H Blood Pressure Mean 124 131 Blood Pressure Position Pulse Oximetry 93 94 Oxygen Delivery Method Room Air Oxygen Flow Rate Sepsis Recent Fever Within 48 Hours Sepsis New/Unexplained Change in Mental Status Sepsis Action Taken by Nursing Oxygen Flow Rate - Titration Pulse Oximetry Post Tiitration 01/03/23 23:00 01/03/23 23:10 01/03/23 23:30 Temperature Temperature Source Pulse Rate 89 Pulse Rate from SpO2 Sensor Respiratory Rate 14 Respiratory Effort / Characteristics Respiratory Depth Blood Pressure 172/104 H 151/90 H Blood Pressure Mean 126 109 Blood Pressure Position Pulse Oximetry 97 87 L Oxygen Delivery Method Room Air Nasal Cannula Oxygen Flow Rate 0 Sepsis Recent Fever Within 48 Hours Sepsis New/Unexplained Change in Mental Status Sepsis Action Taken by Nursing Oxygen Flow Rate - Titration 3 Pulse Oximetry Post Tiitration 95 01/03/23 23:30 01/04/23 00:00 01/04/23 00:00 Temperature Temperature Source Pulse Rate 72 77 Pulse Rate from SpO2 Sensor 72 78 Respiratory Rate 16 19 Respiratory Effort / Characteristics Respiratory Depth Blood Pressure 167/106 H Blood Pressure Mean 121 Blood Pressure Position Pulse Oximetry 95 96 Oxygen Delivery Method Room Air Room Air Oxygen Flow Rate Sepsis Recent Fever Within 48 Hours Sepsis New/Unexplained Change in Mental Status Sepsis Action Taken by Nursing Oxygen Flow Rate - Titration Pulse Oximetry Post Tiitration 01/04/23 00:30 01/04/23 00:30 01/04/23 01:00 Temperature Temperature Source Pulse Rate 75 65 Pulse Rate from SpO2 Sensor 73 Respiratory Rate 16 Respiratory Effort / Characteristics Respiratory Depth Blood Pressure 156/92 H Blood Pressure Mean 112 Blood Pressure Position Pulse Oximetry 98 Oxygen Delivery Method Room Air Oxygen Flow Rate Sepsis Recent Fever Within 48 Hours Sepsis New/Unexplained Change in Mental Status Sepsis Action Taken by Nursing Oxygen Flow Rate - Titration Pulse Oximetry Post Tiitration 01/04/23 01:30 01/04/23 02:10 Temperature Temperature Source Pulse Rate 74 81 Pulse Rate from SpO2 Sensor 72 73 Respiratory Rate 17 17 Respiratory Effort / Characteristics Respiratory Depth Blood Pressure 158/93 H 152/100 H Blood Pressure Mean 114 117 Blood Pressure Position Pulse Oximetry 96 95 Oxygen Delivery Method Room Air Room Air Oxygen Flow Rate Sepsis Recent Fever Within 48 Hours Sepsis New/Unexplained Change in Mental Status Sepsis Action Taken by Nursing Oxygen Flow Rate - Titration Pulse Oximetry Post Tiitration Laboratory Data 01/03/23 21:10 01/03/23 21:10 Lab Results 01/03/23 01/03/23 01/03/23 Range/Units 21:10 21:10 21:10 WBC 8.12 (4.8-10.8) K/ul RBC 4.94 (4.70-6.10) M/uL Hgb 15.3 (14.0-18.0) g/dl Hct 44.2 (42.0-52.0) % MCV 89.5 (80.0-100.0) fL MCH 31.0 (25.0-34.0) pg MCHC 34.6 (32.0-36.0) g/dL RDW Std Deviation 45.8 (36.4-46.3) fL RDW Coeff of Donnie 14.2 (11.5-14.5) % Plt Count 269 (130-400) K/uL MPV 10.6 (9.4-12.4) fL Immature Gran % (Auto) 0.4 % Neut % (Auto) 59.5 % Lymph % (Auto) 29.4 % Pickett % (Auto) 8.7 % Eos % (Auto) 1.5 % Baso % (Auto) 0.5 % Neut # (Auto) 4.83 (1.40-6.50) K/uL Lymph # (Auto) 2.39 (1.20-3.40) K/uL Pickett # (Auto) 0.71 H (0.11-0.59) K/uL Eos # (Auto) 0.12 (0.00-0.50) K/uL Baso # (Auto) 0.04 (0.00-0.20) K/uL Immature Gran # (Auto) 0.03 (0.01-0.20) K/uL Sodium 140 (136-145) mmol/L Potassium 3.6 (3.5-5.1) mmol/L Chloride 104 (98-107) mmol/L Carbon Dioxide 26 (21-32) mmol/L Anion Gap 10 (3-11) BUN 27 H (6-23) mg/dl Creatinine 1.12 (0.6-1.4) mg/dl Est Cr Clr Drug Dosing 96.7 ml/min Est GFR ( Amer) 92.1 ml/min Est GFR (Non-Af Amer) 79.5 ml/min BUN/Creatinine Ratio 24.1 H (10-20) Glucose 85 (70-99(Fasting)) mg/dl Calcium 9.2 (8.6-10.3) mg/dl Magnesium 2.1 (1.7-2.4) mg/dl Total Bilirubin 0.3 (0.2-1.0) mg/dl AST 24 (13-39) U/L ALT 24 (7-52) U/L Alkaline Phosphatase 61 (34-104) U/L Total Protein 7.2 (6.0-8.3) gm/dl Albumin 4.2 (3.4-5.0) gm/dl Globulin 3.0 (2.5-4.0) gm/dl Albumin/Globulin Ratio 1.4 (0.9-2) TSH 2.677 (0.300-4.500) uIu/ml Urine Color Urine Appearance (Clear) Urine pH (4.5-7.5) Ur Specific [place] (1.000-1.030) Urine Protein (Negative) Urine Glucose (UA) (Negative) Urine Ketones (Negative) Urine Blood (Negative) Urine Nitrite (Negative) Urine Bilirubin (Negative) Urine Urobilinogen (Negative) Ur Leukocyte Esterase (Negative) Salicylates < 3.0 L (3.0-30) mg/dl Urine Opiates Screen (Neg) Ur Methadone, Qual (Neg) Acetaminophen < 3 L (10-30) ug/ml Urine Barbiturates (Neg) Ur Phencyclidine (PCP) (Neg) U Amphetamin/Meth Scrn (Neg) MDMA (Ecstasy) Screen (Neg) U Benzodiazepines Scrn (Neg) Ur Cocaine Metabolite (Neg) U Marijuana (THC) Screen (Neg) Ethyl Alcohol mg/dL (<10.0) mg/dl 01/03/23 01/04/23 01/04/23 Range/Units 21:10 01:53 01:53 WBC (4.8-10.8) K/ul RBC (4.70-6.10) M/uL Hgb (14.0-18.0) g/dl Hct (42.0-52.0) % MCV (80.0-100.0) fL MCH (25.0-34.0) pg MCHC (32.0-36.0) g/dL RDW Std Deviation (36.4-46.3) fL RDW Coeff of Donnie (11.5-14.5) % Plt Count (130-400) K/uL MPV (9.4-12.4) fL Immature Gran % (Auto) % Neut % (Auto) % Lymph % (Auto) % Pickett % (Auto) % Eos % (Auto) % Baso % (Auto) % Neut # (Auto) (1.40-6.50) K/uL Lymph # (Auto) (1.20-3.40) K/uL Pickett # (Auto) (0.11-0.59) K/uL Eos # (Auto) (0.00-0.50) K/uL Baso # (Auto) (0.00-0.20) K/uL Immature Gran # (Auto) (0.01-0.20) K/uL Sodium (136-145) mmol/L Potassium (3.5-5.1) mmol/L Chloride (98-107) mmol/L Carbon Dioxide (21-32) mmol/L Anion Gap (3-11) BUN (6-23) mg/dl Creatinine (0.6-1.4) mg/dl Est Cr Clr Drug Dosing ml/min Est GFR ( Amer) ml/min Est GFR (Non-Af Amer) ml/min BUN/Creatinine Ratio (10-20) Glucose (70-99(Fasting)) mg/dl Calcium (8.6-10.3) mg/dl Magnesium (1.7-2.4) mg/dl Total Bilirubin (0.2-1.0) mg/dl AST (13-39) U/L ALT (7-52) U/L Alkaline Phosphatase (34-104) U/L Total Protein (6.0-8.3) gm/dl Albumin (3.4-5.0) gm/dl Globulin (2.5-4.0) gm/dl Albumin/Globulin Ratio (0.9-2) TSH (0.300-4.500) uIu/ml Urine Color Yellow Urine Appearance Clear (Clear) Urine pH 6.0 (4.5-7.5) Ur Specific [place] 1.029 (1.000-1.030) Urine Protein Negative (Negative) Urine Glucose (UA) Negative (Negative) Urine Ketones Trace H (Negative) Urine Blood Negative (Negative) Urine Nitrite Negative (Negative) Urine Bilirubin Negative (Negative) Urine Urobilinogen Negative (Negative) Ur Leukocyte Esterase Negative (Negative) Salicylates (3.0-30) mg/dl Urine Opiates Screen Neg (Neg) Ur Methadone, Qual Neg (Neg) Acetaminophen (10-30) ug/ml Urine Barbiturates Neg (Neg) Ur Phencyclidine (PCP) Neg (Neg) U Amphetamin/Meth Scrn Neg (Neg) MDMA (Ecstasy) Screen Neg (Neg) U Benzodiazepines Scrn Pos H (Neg) Ur Cocaine Metabolite Neg (Neg) U Marijuana (THC) Screen Neg (Neg) Ethyl Alcohol mg/dL 93.7 H (<10.0) mg/dl Administered Medications Potassium Chloride/Sodium Chloride (Normal Saline W/20 Meq Kcl) 20 meq in 1,000 mls @ 100 mls/hr IV .Q10H DEMIAN; Protocol Stop: 02/03/23 03:14 Last Admin: 01/04/23 04:50 Dose: 100 mls/hr Documented By: RENAN Lorazepam (Lorazepam 2 Mg/1 Ml Vial) 1 mg IV UD PRN; Protocol PRN Reason: EtOH Withdrawal AWSS Score 6,7 Stop: 02/03/23 02:46 Last Admin: 01/04/23 04:58 Dose: 1 mg Documented By: RENAN Discontinued Medications Diazepam (Diazepam Inj 5 Mg/Ml 2 Ml Carp) 10 mg IV NOW ONE Stop: 01/03/23 22:39 Last Admin: 01/03/23 22:59 Dose: 10 mg Documented By: BRIGITTE Diazepam (Diazepam Inj 5 Mg/Ml 2 Ml Carp) 5 mg IV NOW STA Stop: 01/04/23 00:21 Last Admin: 01/04/23 00:32 Dose: 5 mg Documented By: Diazepam (Diazepam Inj 5 Mg/Ml 2 Ml Carp) 5 mg IV NOW ONE Stop: 01/04/23 01:55 Last Admin: 01/04/23 02:22 Dose: 5 mg Documented By: Multivitamins 10 ml/ Thiamine HCl 100 mg/ Folic Acid 1 mg/Sodium Chloride 1,011.2 mls @ 500 mls/hr IV .Q2H2M ONE Stop: 01/04/23 00:03 Last Infusion: 01/04/23 01:11 Dose: 0 mls/hr Documented By: Admin: 01/03/23 22:59 Dose: 500 mls/hr Documented By: BRIGITTE Pantoprazole Sodium 40 mg/ (Syringe) 10 mls @ 5 mls/min IV NOW ONE Stop: 01/03/23 22:39 Last Admin: 01/03/23 22:59 Dose: 5 mls/min Documented By: BRIGITTE Famotidine (Pepcid 20mg Iv Push) 20 mg in 5 mls @ 2.5 mls/min IV NOW STA Stop: 01/03/23 22:39 Last Admin: 01/03/23 22:59 Dose: 2.5 mls/min Documented By: BRIGITTE Ondansetron HCl (Ondansetron Inj 2 Mg/Ml 2 Ml Vial) 4 mg IV NOW STA Stop: 01/03/23 22:39 Last Admin: 01/03/23 22:59 Dose: 4 mg Documented By: BRIGITTE Discharge Plan Visit Data Chief Complaint: Alcohol Withdrawal Stated Complaint: Alcohol Withdrawal ED Provider: Magnolia Cunningham ED Midlevel Provider: Emilie Harris Discharge Problem: Alcohol withdrawal, Alcoholism with alcohol dependence Patient Disposition: Admitted As Inpatient Condition: Good Discharge Instructions Interventions: ED Discharge Assessment Last Done: 01/04/23 04:25
[2023-01-03] MEDS ORDERED: diazePAM INJ 5 MG/ML 2 ML CARP IV ONE (22:38)
[2023-01-03] MEDS ORDERED: FAMOTIDINE 20MG IV PUSH 20 MG/5 ML SYR IV STA (22:38)
[2023-01-03] MEDS ORDERED: ONDANSETRON INJ 2 MG/ML 2 ML VIAL IV STA (22:38)
[2023-01-03] MEDS ORDERED: PANTOprazole 40 MG in SYRINGE 0 ML IV ONE (22:38)
[2023-01-03 22:42] LABS: Albumin Globulin Ratio 1.4 (0.9-2); Albumin Level 4.2 gm/dl (3.4-5.0); BUN Creatinine Ratio 24.1 (10-20); Bilirubin,Total 0.3 mg/dl (0.2-1.0); Calcium 9.2 mg/dl (8.6-10.3); Creatinine Clr Calc Pharmacy 96.7 ml/min; Est GFR (African American) 92.1 ml/min; Est GFR (Non-African American) 79.5 ml/min; Magnesium 2.1 mg/dl (1.7-2.4); Potassium 3.6 mmol/L (3.5-5.1); Total Protein 7.2 gm/dl (6.0-8.3)
[2023-01-03 22:50] LABS: Acetaminophen < 3 ug/ml (10-30); Salicylate < 3.0 mg/dl (3.0-30)
[2023-01-03 22:57] LABS: Thyroid Stimulating Hormone 2.677 uIu/ml (0.300-4.500)
[2023-01-04] MEDS ORDERED: diazePAM INJ 5 MG/ML 2 ML CARP IV STA (00:20)
[2023-01-04] MEDS ORDERED: diazePAM INJ 5 MG/ML 2 ML CARP IV ONE (01:54)
[2023-01-04 02:45] LABS: Appearance Urine Clear (Clear); Bilirubin Urine Negative (Negative); Blood Urine Negative (Negative); Color Urine Yellow; Glucose Urine UA Negative (Negative); Ketones Urine Trace (Negative); Leukocyte Esterase Urine Negative (Negative); Nitrite Urine Negative (Negative); Protein Urine Negative (Negative); Specific Gravity Urine 1.029 (1.000-1.030); Urobilinogen Urine Negative (Negative)
[2023-01-04] MEDS ORDERED: LORazepam 2 MG/1 ML VIAL IV PRN ×3 (02:47)
[2023-01-04] MEDS ORDERED: Ativan IV Alcohol Withdrawal--Active Protocol IV PRN (02:47)
[2023-01-04] MEDS ORDERED: ONDANSETRON INJ 2 MG/ML 2 ML VIAL IV PRN (03:35)
[2023-01-04] MEDS ORDERED: ACETAMINOPHEN 325 MG TAB PO PRN (03:35)
[2023-01-04 03:38] LABS: Amphetamines+Metham, Urine Neg (Neg); Barbiturates, Urine Neg (Neg); Benzodiazepine, Urine Pos (Neg); Cocaine, Urine Neg (Neg); MDMA (Ecstacy), Urine Neg (Neg); Methadone, Urine Neg (Neg); Opiate, Urine Neg (Neg); Phencyclidine, Urine Neg (Neg)
--- NOTE | 2023-01-04 04:49 | History & Physical Report ---
Date of Service January 04, 2023 Assessment & Plan (1) Alcoholic intoxication: (2) Alcohol abuse: (3) Alcohol withdrawal: (4) Depression: (5) Alcoholism with alcohol dependence: (6) HTN (hypertension): (7) GERD (gastroesophageal reflux disease): (8) Cognitive disorder: Plan Alcohol withdrawal/alcoholism with alcohol dependence/alcohol abuse/alcohol intoxication- Admit to telemetry Thiamine 100 mg p.o. daily Folic acid 1 mg p.o. daily Continue clonidine 0.1 mg p.o. 3 times daily Continue naltrexone 50 mg every afternoon AWSS protocol with IV Ativan Of note, patient received from the ED: Diazepam 10 mg IV, then 5 mg IV and then 5 mg IV Anxiety/depression- Continue Vraylar, clonidine, escitalopram, hydroxyzine and melatonin Dehydration- NSS + KCl 20 mill equivalents at 100 mils per hour Admission and Anticipated Discharge Date Admission Date: January 04, 2023 History of Present Illness Chief Complaint: The patient presents to the emergency department reporting that his last alcohol intake was earlier this morning of 01/03, and is feeling jittery and shaky and feels like he is going through withdrawal, as he has in the past Primary Care Provider: NO PCP The patient is a 42-year-old male with a past medical history including alcohol withdrawal, alcohol abuse, obesity, hypertension, suicidal deviation, cognitive disorder, paroxysmal tachycardia, postconcussive syndrome, anxiety and insomnia. The patient presents similarly to previous admission, with concerns regarding alcohol withdrawal. Alcohol level was 93.7 Allergies Allergy/AdvReac Type Severity Reaction Status Date / Time No Known Allergies Allergy Verified 01/03/23 22:14 Home Medications Medication Instructions Recorded Confirmed Type losartan 100 mg tablet 100 mg PO DAILY 07/18/20 01/03/23 History naltrexone 50 mg tablet 50 mg PO PM 07/18/20 01/03/23 History folic acid 1 mg tablet 1 mg PO DAILY 08/12/21 01/03/23 History multivitamin 1 tab PO DAILY 08/12/21 01/03/23 History thiamine HCl (vitamin B1) 100 mg 1 tab PO DAILY 08/12/21 01/03/23 History tablet (Vitamin B-1) escitalopram oxalate 20 mg tablet 20 mg PO DAILY 09/04/22 01/03/23 History cariprazine 1.5 mg capsule 1.5 mg PO DAILY 01/03/23 01/03/23 History (Vraylar) clonidine HCl 0.1 mg tablet 0.1 mg PO TID 01/03/23 01/03/23 History hydroxyzine pamoate 25 mg capsule 25 mg PO BID PRN Anxiety 01/03/23 01/03/23 History melatonin 10 mg sublingual tablet 10 mg sublingual HS 01/03/23 01/03/23 History Past Med/Surg History Medical History (Updated 01/04/23 @ 04:46 by Anant Golden MD) Alcoholism with alcohol dependence GERD (gastroesophageal reflux disease) High blood pressure TIA (transient ischemic attack) Surgical History No pertinent past surgical history Family History Other Family history non-contributory Social History Smoking Status: Current every day smoker Tobacco Type: Cigarettes Cigarettes Per Day: 1/2 pack; Second Hand Exposure: Yes; Do You Dip or Chew Tobacco: No; Hx Alcohol Use: Yes Alcohol type: hard liquor Hx Substance Use: No Preferred Language: Grenadian Communication Ability: Effective Quality Control Inspector Heading Required: No Beliefs That Will Affect Care: None Current Living Situation: Spouse and Family Feels Safe at Home: Yes Assistive Devices: None Review of Systems Review of Systems: The patient denies chest pain, palpitations, shortness of breath, dyspnea on exertion, cough, lower extremity swelling, sore throat, fevers, chills, sweats, nausea, vomiting, diarrhea , constipation, abdominal pain, pelvic pain, blood in urine or stool, dysuria, urinary frequency or urgency, lightheadedness, dizziness, headache, memory loss, loss of consciousness, rash, abnormal bruising or bleeding, imbalance, focal weakness, numbness or tingling in arms or legs, generalized arthralgias or myalgias, back or neck pain, or night sweats. The review of systems is otherwise negative other than for that already noted above, and at least 10 systems have been reviewed. Physical Exam Physical Exam: The patient is awake, alert and oriented 3, well developed and well nourished, normocephalic and atraumatic, lying in bed and in no acute distress. HEENT--PERRL, EOMI, mucous membranes and oropharynx moderately dry. Neck--supple. No JVD. No bruits. Thyroid normal, trachea midline, no adenopathy. Heart--normal S1 and S2. No murmurs, rubs or gallops. Lungs--clear bilaterally, no respiratory distress, no accessory muscle use. Abdomen--normal bowel sounds and soft. Nontender. Nondistended, obese Extremities--no cyanosis or clubbing. No edema. Dermatologic--normal skin turgor, normal color, no abnormal lymph nodes, no rash. Neurologic--cranial nerves II through XII grossly intact. Rheumatologic--normal range of motion. Psychiatric--normal affect. Results & Data Results & Data Vital Signs (Past 12 Hours) Vital Signs Temp Pulse Resp BP Pulse Ox O2 Del Method O2 Flow Rate 01/04/23 04:25 Room Air 01/04/23 04:00 72 20 147/94 H 92 Room Air 01/04/23 03:00 57 L 18 135/83 91 Room Air 01/04/23 02:10 81 17 152/100 H 95 Room Air 01/04/23 01:30 74 17 158/93 H 96 Room Air 01/04/23 01:00 65 01/04/23 00:30 75 16 98 Room Air 01/04/23 00:30 156/92 H 01/04/23 00:00 77 19 96 Room Air 01/04/23 00:00 167/106 H 01/03/23 23:30 72 16 95 Room Air 01/03/23 23:30 151/90 H 01/03/23 23:10 87 L Room Air, Nasal Cannula 0 01/03/23 23:00 89 14 172/104 H 97 01/03/23 22:30 77 18 94 Room Air 01/03/23 22:30 158/92 H 01/03/23 22:00 76 15 166/103 H 93 01/03/23 21:30 75 18 164/104 H 95 01/03/23 21:05 70 01/03/23 20:27 36.6 C 87 16 158/94 H 95 Room Air Laboratory Results Laboratory Results WBC 8.12 K/ul (4.8-10.8) 01/03/23 21:10 RBC 4.94 M/uL (4.70-6.10) 01/03/23 21:10 Hgb 15.3 g/dl (14.0-18.0) 01/03/23 21:10 Hct 44.2 % (42.0-52.0) 01/03/23 21:10 MCV 89.5 fL (80.0-100.0) 01/03/23 21:10 MCH 31.0 pg (25.0-34.0) 01/03/23 21:10 MCHC 34.6 g/dL (32.0-36.0) 01/03/23 21:10 RDW Std Deviation 45.8 fL (36.4-46.3) 01/03/23 21:10 RDW Coeff of Donnie 14.2 % (11.5-14.5) 01/03/23 21:10 Plt Count 269 K/uL (130-400) 01/03/23 21:10 MPV 10.6 fL (9.4-12.4) 01/03/23 21:10 Immature Gran % (Auto) 0.4 % 01/03/23 21:10 Neut % (Auto) 59.5 % 01/03/23 21:10 Lymph % (Auto) 29.4 % 01/03/23 21:10 [place] % (Auto) 8.7 % 01/03/23 21:10 Eos % (Auto) 1.5 % 01/03/23 21:10 Baso % (Auto) 0.5 % 01/03/23 21:10 Neut # (Auto) 4.83 K/uL (1.40-6.50) 01/03/23 21:10 Lymph # (Auto) 2.39 K/uL (1.20-3.40) 01/03/23 21:10 [place] # (Auto) 0.71 K/uL (0.11-0.59) H 01/03/23 21:10 Eos # (Auto) 0.12 K/uL (0.00-0.50) 01/03/23 21:10 Baso # (Auto) 0.04 K/uL (0.00-0.20) 01/03/23 21:10 Immature Gran # (Auto) 0.03 K/uL (0.01-0.20) 01/03/23 21:10 Sodium 140 mmol/L (136-145) 01/03/23 21:10 Potassium 3.6 mmol/L (3.5-5.1) 01/03/23 21:10 Chloride 104 mmol/L (98-107) 01/03/23 21:10 Carbon Dioxide 26 mmol/L (21-32) 01/03/23 21:10 Anion Gap 10 (3-11) 01/03/23 21:10 BUN 27 mg/dl (6-23) H 01/03/23 21:10 Creatinine 1.12 mg/dl (0.6-1.4) 01/03/23 21:10 Est Cr Clr Drug Dosing 96.7 ml/min 01/03/23 21:10 Est GFR ( Amer) 92.1 ml/min 01/03/23 21:10 Est GFR (Non-Af Amer) 79.5 ml/min 01/03/23 21:10 BUN/Creatinine Ratio 24.1 (10-20) H 01/03/23 21:10 Glucose 85 mg/dl (70-99(Fasting)) 01/03/23 21:10 Calcium 9.2 mg/dl (8.6-10.3) 01/03/23 21:10 Magnesium 2.1 mg/dl (1.7-2.4) 01/03/23 21:10 Total Bilirubin 0.3 mg/dl (0.2-1.0) 01/03/23 21:10 AST 24 U/L (13-39) 01/03/23 21:10 ALT 24 U/L (7-52) 01/03/23 21:10 Alkaline Phosphatase 61 U/L (34-104) 01/03/23 21:10 Total Protein 7.2 gm/dl (6.0-8.3) 01/03/23 21:10 Albumin 4.2 gm/dl (3.4-5.0) 01/03/23 21:10 Globulin 3.0 gm/dl (2.5-4.0) 01/03/23 21:10 Albumin/Globulin Ratio 1.4 (0.9-2) 01/03/23 21:10 TSH 2.677 uIu/ml (0.300-4.500) 01/03/23 21:10 Urine Color Yellow 01/04/23 01:53 Urine Appearance Clear (Clear) 01/04/23 01:53 Urine pH 6.0 (4.5-7.5) 01/04/23 01:53 Ur Specific [place] 1.029 (1.000-1.030) 01/04/23 01:53 Urine Protein Negative (Negative) 01/04/23 01:53 Urine Glucose (UA) Negative (Negative) 01/04/23 01:53 Urine Ketones Trace (Negative) H 01/04/23 01:53 Urine Blood Negative (Negative) 01/04/23 01:53 Urine Nitrite Negative (Negative) 01/04/23 01:53 Urine Bilirubin Negative (Negative) 01/04/23 01:53 Urine Urobilinogen Negative (Negative) 01/04/23 01:53 Ur Leukocyte Esterase Negative (Negative) 01/04/23 01:53 Salicylates < 3.0 mg/dl (3.0-30) L 01/03/23 21:10 Urine Opiates Screen Neg (Neg) 01/04/23 01:53 Ur Methadone, Qual Neg (Neg) 01/04/23 01:53 Acetaminophen < 3 ug/ml (10-30) L 01/03/23 21:10 Urine Barbiturates Neg (Neg) 01/04/23 01:53 Ur Phencyclidine (PCP) Neg (Neg) 01/04/23 01:53 U Amphetamin/Meth Scrn Neg (Neg) 01/04/23 01:53 MDMA (Ecstasy) Screen Neg (Neg) 01/04/23 01:53 U Benzodiazepines Scrn Pos (Neg) H 01/04/23 01:53 Ur Cocaine Metabolite Neg (Neg) 01/04/23 01:53 U Marijuana (THC) Screen Neg (Neg) 01/04/23 01:53 Ethyl Alcohol mg/dL 93.7 mg/dl (<10.0) H 01/03/23 21:10 Code Status & VTE Plan Code Status Full code VTE Prophylaxis Plan VTE Prophylaxis will be ordered: Yes PG Care Time/CCT Total # of Minutes Spent Total Time Spent with Patient: Total time spent is greater than 50% in coordination of care (as documented) at patient's floor/unit and/or counseling patient: Coding Level of Care Code 46944 INT INP/OBS CARE 3/75MIN Diagnoses Alcoholic intoxication F10.929 Alcohol abuse F10.10 Alcohol withdrawal F10.239 Depression F32.9 Depression Type: unspecified Alcoholism with alcohol dependence F10.20 HTN (hypertension) I10 GERD (gastroesophageal reflux disease) K21.9 Cognitive disorder F09 (4) Depression Depression Type: unspecified Qualified Code(s): F32.9 - Major depressive disorder, single episode, unspecified
[2023-01-04] MEDS: NSS + 20MEQ KCL 20 MEQ/1,000 ML BAG IV SCH ×2 (04:50→14:38)
--- NOTE | 2023-01-04 08:04 | Electrocardiogram Report ---
Test Reason : Blood Pressure : / mmHG Vent. Rate : 071 BPM Atrial Rate : 071 BPM P-R Int : 150 ms QRS Dur : 088 ms QT Int : 410 ms P-R-T Axes : 060 014 029 degrees QTc Int : 445 ms Sinus rhythm with occasional Premature ventricular complexes Otherwise normal ECG When compared with ECG of 04-SEP-2022 16:43, Premature ventricular complexes are now Present Vent. rate has decreased BY 48 BPM Confirmed by Johnny Hamlin ([id number]) on 01/04/2023 8:03:58 AM Referred By: REFERRED SELF Confirmed By:Iron Hamlin
[2023-01-04] MEDS: MULTIVITAMIN TAB PO SCH (08:45)
[2023-01-04] MEDS: FOLIC ACID 1 MG TAB PO SCH (08:45)
[2023-01-04] MEDS: ESCITALOPRAM OXALATE 20 MG TAB PO SCH (08:45)
[2023-01-04] MEDS: LOSARTAN POTASSIUM 50 MG TAB PO SCH (08:45)
[2023-01-04] MEDS: cloNIDine HCL 0.1 MG TAB PO SCH ×3 (08:45→20:00)
--- NOTE | 2023-01-04 08:57 | Hospitalist Progress Note ---
Date of Service January 04, 2023 Assessment & Plan (1) Alcoholic intoxication: (2) Alcohol abuse: (3) Alcohol withdrawal: (4) Depression: (5) Alcoholism with alcohol dependence: (6) HTN (hypertension): (7) GERD (gastroesophageal reflux disease): (8) Cognitive disorder: Plan #Alcohol withdrawal/alcoholism with alcohol dependence/alcohol abuse/alcohol intoxication- -Tele monitor -Thiamine 100 mg twice daily, Folic acid 1 mg p.o. daily -Continue clonidine 0.1 mg p.o. 3 times daily -Continue naltrexone 50 mg every afternoon -AWSS protocol with IV Ativan -Patient received 20 mg IV diazepam in the ED. #Anxiety/depression- -Continue Vraylar, clonidine, escitalopram, hydroxyzine and melatonin -Nicotine patch ordered #Dehydration- -NSS + KCl 20 mill equivalents at 100 mils per hour Admission and Anticipated Discharge Date Admission Date: January 04, 2023 Supervising Physician Co-Signing Physician Notes Attending attestation Pt seen and examined in concert with Dr. Vanegas. In agreement with the documented findings as noted in the resident documentation with any exceptions or additions as noted here. Sitting comfortably at bedside tolerating POI well without complaint of nausea, pain. On examination, S1/S2 nl RRR no MCG. CTAB. Abd NT/ND BS+ve. Mild tremulousness diffusely. Alcohol withdrawal with h/o alcohol dependence - AWSS protocol. Continue clonidine, naltrexone. CM aware re: considerations for outpatient resources. Monitor BMP, Mg, and correct. MDD/GEORGE - continue Vraylar, clonidine, escitalopram, hydroxyzine and melatonin Else see resident documentation as noted. Subjective Patient seen bedside this morning. States that his alcohol withdrawal is mild at this time. He has had DTs in the past. And has been to rehab approximately 7 times. He currently drinks about 1/5-1/2 a gallon of whiskey a day. His last drink was 7 AM on 01/03. States that he has been drinking steadily for the past 3 weeks. States that he wishes to stop drinking. Denies any other issues or concerns at this time. Review of Systems Review of Systems: All systems reviewed & are unremarkable except as noted in Subjective Physical Exam Physical Exam: Constitutional: well-appearing, no acute distress HEENT: NCAT, no conjunctival injection CV: regular rhythm, no murmur appreciated, extremities well-perfused, no LE edema Resp: CTABL, no wheezes/rales/rhonchi appreciated, no increased work of breathing GI: soft, nondistended, nontender, BS normoactive MSK: no gross deformities appreciated Skin: warm, dry, no rash appreciated Neuro: alert, oriented, no focal neurologic deficit appreciated Results & Data Results & Data Vital Signs (Past 12 Hours) Vital Signs Temp Pulse Pulse Resp BP BP Pulse Ox 01/04/23 08:00 66 01/04/23 07:31 36.9 C 68 19 146/85 H 94 01/04/23 05:00 01/04/23 04:37 59 L 01/04/23 05:09 36.7 C 62 19 161/106 H 95 01/04/23 04:30 36.7 C 75 19 161/106 H 95 01/04/23 04:25 01/04/23 04:00 72 20 147/94 H 92 01/04/23 03:00 57 L 18 135/83 91 01/04/23 02:10 81 17 152/100 H 95 01/04/23 01:30 74 17 158/93 H 96 01/04/23 01:00 65 01/04/23 00:30 75 16 98 01/04/23 00:30 156/92 H 01/04/23 00:00 77 19 96 01/04/23 00:00 167/106 H 01/03/23 23:30 72 16 95 01/03/23 23:30 151/90 H 01/03/23 23:10 87 L 01/03/23 23:00 89 14 172/104 H 97 01/03/23 22:30 77 18 94 01/03/23 22:30 158/92 H 01/03/23 22:00 76 15 166/103 H 93 01/03/23 21:30 75 18 164/104 H 95 01/03/23 21:05 70 O2 Del Method O2 Flow Rate 01/04/23 08:00 01/04/23 07:31 Room Air 01/04/23 05:00 Room Air 01/04/23 04:37 01/04/23 05:09 Room Air 01/04/23 04:30 Room Air 01/04/23 04:25 Room Air 01/04/23 04:00 Room Air 01/04/23 03:00 Room Air 01/04/23 02:10 Room Air 01/04/23 01:30 Room Air 01/04/23 01:00 01/04/23 00:30 Room Air 01/04/23 00:30 01/04/23 00:00 Room Air 01/04/23 00:00 01/03/23 23:30 Room Air 01/03/23 23:30 01/03/23 23:10 Room Air, Nasal Cannula 0 01/03/23 23:00 01/03/23 22:30 Room Air 01/03/23 22:30 01/03/23 22:00 01/03/23 21:30 01/03/23 21:05 Resident Activity Tracking Resident Involvement: Resident Care Provided Care Provided: Adult Hospital Medicine (4) Depression Depression Type: unspecified Qualified Code(s): F32.9 - Major depressive disorder, single episode, unspecified
[2023-01-04] MEDS ORDERED: THIAMINE HCL 100 MG TAB PO SCH (09:00)
--- NOTE | 2023-01-04 09:42 | Electrocardiogram Report ---
Test Reason : Blood Pressure : / mmHG Vent. Rate : 075 BPM Atrial Rate : 075 BPM P-R Int : 144 ms QRS Dur : 086 ms QT Int : 408 ms P-R-T Axes : 028 017 028 degrees QTc Int : 455 ms Normal sinus rhythm Normal ECG When compared with ECG of 03-JAN-2023 22:18, Premature ventricular complexes are no longer Present Confirmed by Johnny Hamlin ([id number]) on 01/04/2023 9:41:54 AM Referred By: REFERRED SELF Confirmed By:Iron Hamlin
[2023-01-04] MEDS: NICOTINE 14 MG/24 HR PATCH TD SCH (09:45)
[2023-01-04] MEDS: hydrOXYzine HCl 25 MG TAB PO PRN ×2 (17:20→22:40)
[2023-01-04] MEDS: THIAMINE HCL 100 MG TAB PO SCH (19:56)
[2023-01-04] MEDS ORDERED: NALTREXONE HCL 50 MG TAB PO SCH (21:00)
[2023-01-05] MEDS: NSS + 20MEQ KCL 20 MEQ/1,000 ML BAG IV SCH (01:46)
[2023-01-05 06:42] LABS: Basophils # (auto) 0.03 K/uL (0.00-0.20); Basophils % (auto) 0.5 %; Eosinophils # (auto) 0.25 K/uL (0.00-0.50); Eosinophils % (auto) 4.1 %; Hematocrit (blood only) 39.1 % (42.0-52.0); Hemoglobin 13.2 g/dl (14.0-18.0); Immature Granulocytes # (auto) 0.01 K/uL (0.01-0.20); Immature Granulocytes % (auto) 0.2 %; Lymphocytes % (auto) 37.6 %; Mean Corpuscular Hemoglobin 30.7 pg (25.0-34.0); Mean Corpuscular Hgb Conc 33.8 g/dL (32.0-36.0); Mean Corpuscular Volume 90.9 fL (80.0-100.0); Mean Platelet Volume 10.7 fL (9.4-12.4); Monocytes # (auto) 1.01 K/uL (0.11-0.59); Monocytes % (auto) 16.5 %; Neutrophils # (auto) 2.51 K/uL (1.40-6.50); Neutrophils % (auto) 41.1 %; Platelet Count 193 K/uL (130-400); RDW Coefficient of Variation 13.9 % (11.5-14.5); White Blood Count 6.11 K/ul (4.8-10.8)
[2023-01-05 07:10] LABS: Albumin Globulin Ratio 1.4 (0.9-2); Albumin Level 3.7 gm/dl (3.4-5.0); BUN Creatinine Ratio 19.6 (10-20); Bilirubin,Total 0.8 mg/dl (0.2-1.0); Calcium 8.6 mg/dl (8.6-10.3); Creatinine Clr Calc Pharmacy 107.1 ml/min; Est GFR (African American) 103.1 ml/min; Globulin 2.6 gm/dl (2.5-4.0); Magnesium 2.1 mg/dl (1.7-2.4); Phosphorus 3.6 mg/dl (2.5-4.9); Potassium 4.3 mmol/L (3.5-5.1); Total Protein 6.3 gm/dl (6.0-8.3)
--- NOTE | 2023-01-05 07:20 | Hospitalist Progress Note ---
Date of Service January 05, 2023 Assessment & Plan (1) Alcoholic intoxication: (2) Alcohol abuse: (3) Alcohol withdrawal: (4) Depression: (5) Alcoholism with alcohol dependence: (6) HTN (hypertension): (7) GERD (gastroesophageal reflux disease): (8) Cognitive disorder: Plan #Alcohol withdrawal/alcoholism with alcohol dependence/alcohol abuse/alcohol intoxication- -Tele monitor -Thiamine 100 mg twice daily, Folic acid 1 mg p.o. daily -Continue clonidine 0.1 mg p.o. 3 times daily -Continue naltrexone 50 mg every afternoon -AWSS protocol with IV Ativan -Patient received 20 mg IV diazepam in the ED. #Anxiety/depression- -Continue Vraylar, clonidine, escitalopram, hydroxyzine and melatonin -Nicotine patch ordered #Dehydration- -NSS + KCl 20 mill equivalents at 100 mils per hour Admission and Anticipated Discharge Date Admission Date: January 04, 2023 Results & Data Results & Data Vital Signs (Past 12 Hours) Vital Signs Temp Pulse Pulse Resp BP Pulse Ox O2 Del Method 01/05/23 07:15 36.5 C 50 L 18 137/85 96 Room Air 01/05/23 05:24 36.4 C 50 L 16 134/86 96 Room Air 01/04/23 22:01 49 L 01/04/23 22:40 36.7 C 55 L 18 155/79 H 97 Room Air (4) Depression Depression Type: unspecified Qualified Code(s): F32.9 - Major depressive disorder, single episode, unspecified
[2023-01-05] MEDS: LOSARTAN POTASSIUM 50 MG TAB PO SCH (08:31)
[2023-01-05] MEDS: THIAMINE HCL 100 MG TAB PO SCH (08:31)
[2023-01-05] MEDS: MULTIVITAMIN TAB PO SCH (08:31)
[2023-01-05] MEDS: FOLIC ACID 1 MG TAB PO SCH (08:31)
[2023-01-05] MEDS: ESCITALOPRAM OXALATE 20 MG TAB PO SCH (08:32)
[2023-01-05] MEDS: NICOTINE 14 MG/24 HR PATCH TD SCH (08:33)
[2023-01-05] MEDS: cloNIDine HCL 0.1 MG TAB PO SCH (08:35)
--- NOTE | 2023-01-05 09:52 | Discharge Summary ---
Date of Service January 05, 2023 Admission HPI Per Admitting Provider The patient is a 42-year-old male with a past medical history including alcohol withdrawal, alcohol abuse, obesity, hypertension, suicidal deviation, cognitive disorder, paroxysmal tachycardia, postconcussive syndrome, anxiety and insomnia. The patient presents similarly to previous admission, with concerns regarding alcohol withdrawal. Alcohol level was 93.7 Admission Exam Per Admitting Provider The patient is awake, alert and oriented 3, well developed and well nourished, normocephalic and atraumatic, lying in bed and in no acute distress. HEENT--PERRL, EOMI, mucous membranes and oropharynx moderately dry. Neck--supple. No JVD. No bruits. Thyroid normal, trachea midline, no adenopathy. Heart--normal S1 and S2. No murmurs, rubs or gallops. Lungs--clear bilaterally, no respiratory distress, no accessory muscle use. Abdomen--normal bowel sounds and soft. Nontender. Nondistended, obese Extremities--no cyanosis or clubbing. No edema. Dermatologic--normal skin turgor, normal color, no abnormal lymph nodes, no rash. Neurologic--cranial nerves II through XII grossly intact. Rheumatologic--normal range of motion. Psychiatric--normal affect. Principal Diagnosis Alcohol withdrawal Discharge Exam Constitutional: well-appearing, no acute distress HEENT: NCAT, no conjunctival injection CV: regular rhythm, no murmur appreciated, extremities well-perfused, no LE edema Resp: CTABL, no wheezes/rales/rhonchi appreciated, no increased work of breathing GI: soft, nondistended, nontender, BS normoactive MSK: no gross deformities appreciated Skin: warm, dry, no rash appreciated Neuro: alert, oriented, no focal neurologic deficit appreciated Discharge Data Allergies Allergy/AdvReac Type Severity Reaction Status Date / Time No Known Allergies Allergy Verified 01/03/23 22:14 Consultations 01/04/23 02:33 ED Decision to Admit Stat Hospital Course (1) Alcoholic intoxication: (2) Alcohol abuse: (3) Alcohol withdrawal: (4) Depression: (5) Alcoholism with alcohol dependence: (6) HTN (hypertension): (7) GERD (gastroesophageal reflux disease): (8) Cognitive disorder: Plan #Alcohol withdrawal/alcoholism with alcohol dependence/alcohol abuse/alcohol intoxication- -Thiamine 100 mg twice daily, Folic acid 1 mg p.o. daily -Continue clonidine 0.1 mg p.o. 3 times daily -Continue naltrexone 50 mg every afternoon -AWSS protocol with IV Ativan while admitted. -Patient received 20 mg IV diazepam in the ED. -Only required 1 mg of Ativan during his stay. -Recommend patient follow-up with PCP in 1 week and instructed to return to the hospital if symptoms of withdrawal return as this could be a medical emergency. #Anxiety/depression- -Continue Vraylar, clonidine, escitalopram, hydroxyzine and melatonin Total Time Total Time Spent Total Time Spent (In Minutes): Please refer to attendings attestation Discharge Plan Discharge Items Patient Disposition: Home - Self-Care Reason For Visit: Alcohol Withdrawal Discharge Diagnosis: Alcohol Withdrawal Condition on Discharge: Good Activity: Resume your previous activity Non-emergency contact: Primary Care Provider Call non-emergency contact if: you have any medication questions, your pain is unusual for you and your temperature is above 101.5 Follow-up/Referrals: Lynne Luciano MD [Resident] - 01/17/23 1:05 pm (address for appointment [address], [address]) PCP,NO [Primary Care Provider] - Diet: Regular Addtl Attending Provider Instructions: You were admitted to the hospital for Alcohol withdrawal. You were treated with supportive care. A discharge summary will be sent to your primary care physician to ensure continuity of care. Please bring this discharge summary with you to your next office appointment so that your provider can review it at that time. Follow-up appointments: * We have requested a follow-up appointment with your primary care physician within one week of discharge. Please call their office if you do not hear from them. * Keep all your follow-up appointments as already scheduled. If you cannot make an appointment, notify your provider. Medications: Your medication list has been reviewed and reconciled upon discharge to ensure accuracy and continuity of care. An updated list of all your medications is included with your hospital discharge paperwork. Please review this list closely, and make note of any changes. * No new medications were changed during this admission. * If you have any issues filling these prescriptions, please call [phone] and ask to leave a message for Dr. Vanegas. * Take your medications as instructed; do not skip a dose of your medicines. Make sure all of your doctors know every medicine you are taking (including [id number] medicines, vitamins, and supplements). Call your primary care provider before taking any new medicines (including over- the-counter medicines, vitamins, and supplements), because some of these may interact with your current medications, or may make your symptoms worse. Tell your primary care provider if you cannot afford your medications. CONTACT YOUR PRIMARY CARE PROVIDER if you experience any of the following: * Worsening of symptoms * Fever, chills, or fatigue * Difficulty following your treatment plan, or difficulty taking medications CALL 911 OR GO TO THE EMERGENCY DEPARTMENT if you experience any of the following: * Sudden, severe abdominal pain or nausea/vomiting * Severe chest pain, or chest pain that radiates (moves) to your jaw or arm * Sudden, severe shortness of breath or difficulty breathing Thank you for allowing us to participate in your care. Pending Studies at Discharge: No Stand-Alone Forms: My [employer], Smoking Cessation Medications and DC Order Prescriptions: Continued losartan 100 mg tablet 100 mg PO DAILY naltrexone 50 mg Tablet 50 mg PO PM multivitamin Tablet 1 tab PO DAILY thiamine HCl (vitamin B1) [Vitamin B-1] 100 mg Tablet 1 tab PO DAILY folic acid 1 mg tablet 1 mg PO DAILY escitalopram oxalate 20 mg tablet 20 mg PO DAILY clonidine HCl 0.1 mg tablet 0.1 mg PO TID hydroxyzine pamoate 25 mg capsule 25 mg PO BID PRN (Reason: Anxiety) melatonin 10 mg tablet, sublingual 10 mg sublingual HS Vraylar 1.5 mg capsule 1.5 mg PO DAILY Discharge Orders: Discharge Order (Routine); Ordered 01/05/23 Ordered By: Haider Vanegas Admission Data Admit Date/Time: 01/04/23 02:55 Attending Provider: Johnny Durham Admit Provider: Anant Golden Primary Care Provider: PCP,NO Other Providers: Anant Golden Other Interventions: Discharge Summary Assessment (RN) Last Done: 01/05/23 09:51 Supervising Physician Co-Signing Physician Notes Attending attestation Pt seen and examined in concert with Dr. Vanegas. In agreement with the documented findings as noted in the resident documentation with any exceptions or additions as noted here. Tolerating POI well without complaint of nausea, pain. Reports mostly drinks on weekends (Sun/Mon) and last drink prior to this binge was previous weekend, as was before. On examination, S1/S2 nl RRR no MCG. CTAB. Abd NT/ND BS+ve. Alcohol withdrawal with h/o alcohol dependence - AWSS protocol with minimal lorazeapm use. Encourage cessation and seek outside support, declines inpatient at present 2/2 employment concerns MDD/GEORGE - continue Vraylar, clonidine, escitalopram, hydroxyzine and melatonin Else see resident documentation as noted. Total attending physician time spent with this patient's care on the day of discharge: 35 minutes. Resident Activity Tracking Resident Involvement: Resident Care Provided Care Provided: Adult Hospital Medicine
[2023-01-06 00:01] LABS: 7-Aminoclonaz, Confirm NEGATIVE ng/mL (<25); Hydro-Alp Ur, GC/MS NEGATIVE ng/mL (<25); Hydroxyethylflurazepam, Conf NEGATIVE ng/mL (<50); Hydroxymidazolam Ur, GC/MS NEGATIVE ng/mL (<50); Hydroxytriazolam NEGATIVE ng/mL (<50); Lorazepam, Ur GC/MS NEGATIVE ng/mL (<50); Nordiazepam, Confirm 163 ng/mL (<50); Oxazepam Ur, GC/MS NEGATIVE ng/mL (<50); Temazepam, Confirm NEGATIVE ng/mL (<50)
== END 2023-01-05 10:51 | disposition home or self-care (01) | DRG 897 ==
LOC: ED 20:22 → SUATTDRO 01-04 02:55 → EDINP 01-04 02:55 → 4W 01-04 04:25

== ENCOUNTER 2023-03-29 19:50 | Observation (INO) ==
[2023-03-29] MEDS ORDERED: LORazepam 2 MG in SYRINGE 1 ML IV PRN (20:40)
[2023-03-29] MEDS ORDERED: LORazepam 3 MG in SYRINGE 1.5 ML IV PRN (20:40)
[2023-03-29] MEDS ORDERED: THIAMINE HCL 100 MG/ML 2 ML VIAL IM STA (20:40)
[2023-03-29] MEDS ORDERED: Ativan IV Alcohol Withdrawal--Active Protocol IV PRN (20:40)
[2023-03-29] MEDS ORDERED: MULTI-VITAMIN INFUSION 10 ML, THIAMINE HCL 100 MG, FOLIC ACID 1 MG in SODIUM CHLORIDE 0... IV ONE (20:40)
[2023-03-29 20:42] LABS: Basophils # (auto) 0.03 K/uL (0.00-0.20); Basophils % (auto) 0.4 %; Eosinophils # (auto) 0.02 K/uL (0.00-0.50); Eosinophils % (auto) 0.2 %; Hematocrit (blood only) 50.1 % (42.0-52.0); Hemoglobin 17.5 g/dl (14.0-18.0); Immature Granulocytes # (auto) 0.04 K/uL (0.01-0.20); Immature Granulocytes % (auto) 0.5 %; Lymphocytes # (auto) 1.97 K/uL (1.20-3.40); Mean Corpuscular Hemoglobin 31.7 pg (25.0-34.0); Mean Corpuscular Hgb Conc 34.9 g/dL (32.0-36.0); Mean Corpuscular Volume 90.8 fL (80.0-100.0); Mean Platelet Volume 10.6 fL (9.4-12.4); Monocytes # (auto) 0.75 K/uL (0.11-0.59); Monocytes % (auto) 8.8 %; Neutrophils # (auto) 5.75 K/uL (1.40-6.50); Neutrophils % (auto) 67.1 %; Platelet Count 286 K/uL (130-400); RDW Coefficient of Variation 12.7 % (11.5-14.5); RDW Standard Deviation 42.5 fL (36.4-46.3); Red Blood Count 5.52 M/uL (4.70-6.10); White Blood Count 8.56 K/ul (4.8-10.8)
--- NOTE | 2023-03-29 20:44 | Emergency Department Note ---
Impression & Plan Alcohol withdrawal, Coronavirus infection ED Provider Note HISTORY OF PRESENT ILLNESS: Patient is a 42-year-old male presenting for alcoholism. Patient reports that he is an alcoholic but does not drink every day. He reports that he drinks a few pints of whiskey every few days. He reports in the last 48 hours he has had 4 pints of whiskey. He states that his last drink was a few hours ago. He states that he really wants to work on getting sober. His last stented sobriety was a few months ago. He states that he has intermittently been seeing people that are not there, but "I know they are not there so it is not bothering me right now." He reports that he feels nauseous and denies a headache. Denies any significant tremors at this time. He reports that "I just really do not feel well right now." Given his symptoms, he discussed coming to the hospital with his significant other. Denies any previous seizure history. ROS: as above PHYSICAL EXAM: Constitutional: Patient appears in no acute distress. HENT: Head: Normocephalic and atraumatic. Eyes: EOMI, PERRL Mouth/Throat: Mucous membranes moist. Neck: Trachea midline. Neck supple. Cardiovascular: RRR, No murmurs, rubs or gallops. Intact distal pulses. Pulmonary/Chest: No respiratory distress. Breath sounds clear and equal bilaterally. No wheezes or rales. Abdominal: Abdomen soft, no tenderness, rebound or guarding. Musculoskeletal: No edema, tenderness or deformity noted. Skin: Warm and dry. No rash, erythema, pallor or cyanosis Neurological: Alert and keenly responsive. CN II-XII grossly intact, moving all extremities equally and fully. MDM: - Vitals signs showed hypertension. - History obtained via patient. Patient presents with alcohol withdrawal. Patient is an alcoholic and states that he drinks about 4 pints of whiskey over 2 days time. He states that he last drank earlier this afternoon. He states that he wants help with his drinking. He states he feels nauseous but denies a headache. He states that he is seeing things that are not there but he knows they are not there. Denies any seizure history when he stops drinking. He reports he feels generally unwell. - Chronic conditions affecting care: GERD; alcoholism - Differential diagnoses include, but are not limited to: alcohol intoxication; electrolyte abnormality; viral syndrome; alcohol withdrawal - Order placed for continuous cardiac monitoring. At this time, monitor showed rate of 80 bpm with normal sinus rhythm, per my interpretation. - External medical records reviewed. - Laboratory workup interpreted by myself showed normal WBC; stable electrolytes; elevated anion gap (19); normal glucose; elevated alcohol (173.5) - Viral respiratory panel positive for coronavirus type HKU1 - Alcohol withdrawal severity score of 2. Patient given 1 mg IV ativan. - Given IV multivitamin/folic acid/thiamine in NS for hydration - Discussion was had with director of critical care about patient's case and need for admission - Hospitalist consulted for admission - Patient admitted to [facility]ist service for further evaluation and management. ASSESSMENT AND PLAN: Diagnosis: alcohol withdrawal; coronavirus infection Plan: admit Past Med/Surg History Medical History (Updated 03/29/23 @ 22:15 by Magda Godfrey MD) GERD (gastroesophageal reflux disease) Alcoholism with alcohol dependence High blood pressure TIA (transient ischemic attack) Surgical History No pertinent past surgical history Family History Other Family history non-contributory Social History Smoking Status: Current every day smoker Tobacco Type: Cigarettes Cigarettes Per Day: 1/2 pack; Second Hand Exposure: No; Do You Dip or Chew Tobacco: No; Hx Alcohol Use: Yes Alcohol type: hard liquor Hx Substance Use: No Preferred Language: Kinyarwanda Communication Ability: Effective Stitcher Set Up Operator Automatic Required: No Beliefs That Will Affect Care: None Current Living Situation: Spouse and Family Feels Safe at Home: Yes Assistive Devices: None Allergies Allergies Allergy/AdvReac Type Severity Reaction Status Date / Time No Known Allergies Allergy Verified 03/29/23 21:39 Home Meds Home Medications Medication Instructions Recorded Confirmed losartan 100 mg tablet 100 mg PO DAILY 07/18/20 03/29/23 naltrexone 50 mg tablet 50 mg PO PM 07/18/20 03/29/23 escitalopram oxalate 20 mg tablet 20 mg PO DAILY 09/04/22 03/29/23 cariprazine 1.5 mg capsule 1.5 mg PO DAILY 01/03/23 03/29/23 (Vraylar) clonidine HCl 0.1 mg tablet 0.1 mg PO TID PRN NEEDED 01/03/23 03/29/23 hydroxyzine pamoate 25 mg capsule 25 mg PO BID PRN Anxiety 01/03/23 03/29/23 melatonin 10 mg sublingual tablet 10 mg sublingual HS PRN Sleep 01/03/23 03/29/23 Results & Data (ED) Vital Signs Vital Signs - 24 hr 03/29/23 19:54 03/29/23 20:06 03/29/23 20:09 Temperature 36.5 C Temperature Source Temporal Artery Scan Pulse Rate 100 H 100 H 79 Pulse Rhythm Regular Regular Respiratory Rate 22 18 Respiratory Effort / Characteristics Non-Labored Spontaneous Respiratory Depth Normal Respiratory Pattern Regular Blood Pressure 146/99 H Blood Pressure Mean 114 Blood Pressure Position Sitting Pulse Oximetry 95 95 Oxygen Delivery Method Room Air Room Air Sepsis Recent Fever Within 48 Hours No Sepsis New/Unexplained Change in Mental Status No Sepsis Action Taken by Nursing No Action Required Laboratory Data 03/29/23 20:06 03/29/23 20:06 Lab Results 03/29/23 Range/Units 20:06 WBC 8.56 (4.8-10.8) K/ul RBC 5.52 (4.70-6.10) M/uL Hgb 17.5 (14.0-18.0) g/dl Hct 50.1 (42.0-52.0) % MCV 90.8 (80.0-100.0) fL MCH 31.7 (25.0-34.0) pg MCHC 34.9 (32.0-36.0) g/dL RDW Std Deviation 42.5 (36.4-46.3) fL RDW Coeff of Donnie 12.7 (11.5-14.5) % Plt Count 286 (130-400) K/uL MPV 10.6 (9.4-12.4) fL Immature Gran % (Auto) 0.5 % Neut % (Auto) 67.1 % Lymph % (Auto) 23.0 % [place] % (Auto) 8.8 % Eos % (Auto) 0.2 % Baso % (Auto) 0.4 % Neut # (Auto) 5.75 (1.40-6.50) K/uL Lymph # (Auto) 1.97 (1.20-3.40) K/uL [place] # (Auto) 0.75 H (0.11-0.59) K/uL Eos # (Auto) 0.02 (0.00-0.50) K/uL Baso # (Auto) 0.03 (0.00-0.20) K/uL Immature Gran # (Auto) 0.04 (0.01-0.20) K/uL Sodium 140 (136-145) mmol/L Potassium 3.8 (3.5-5.1) mmol/L Chloride 102 (98-107) mmol/L Carbon Dioxide 19 L (21-32) mmol/L Anion Gap 19 H (3-11) BUN 23 (6-23) mg/dl Creatinine 1.12 (0.6-1.4) mg/dl Est Cr Clr Drug Dosing 97.9 ml/min Est GFR ( Amer) 92.1 ml/min Est GFR (Non-Af Amer) 79.5 ml/min BUN/Creatinine Ratio 20.5 H (10-20) Glucose 80 (70-99(Fasting)) mg/dl Calcium 9.3 (8.6-10.3) mg/dl Magnesium 2.1 (1.7-2.4) mg/dl Total Bilirubin 0.4 (0.2-1.0) mg/dl AST 33 (13-39) U/L ALT 39 (7-52) U/L Alkaline Phosphatase 65 (34-104) U/L Total Protein 8.0 (6.0-8.3) gm/dl Albumin 4.7 (3.4-5.0) gm/dl Globulin 3.3 (2.5-4.0) gm/dl Albumin/Globulin Ratio 1.4 (0.9-2) Ethyl Alcohol mg/dL 173.5 H (<10.0) mg/dl Adenovirus (PCR) Not Detected (NotDetected) B. pertussis DNA (PCR) Not Detected (NotDetected) B.parapertussis DNA PCR Not Detected (NotDetected) C. pneumoniae DNA (PCR) Not Detected (NotDetected) Coronavirus OC43 (PCR) Not Detected (NotDetected) Coronavirus HKU1 (PCR) DETECTED A* (NotDetected) Coronavirus 229E (PCR) Not Detected (NotDetected) SARS-CoV-2 (PCR) Not Detected (NotDetected) Coronavirus NL63 (PCR) Not Detected (NotDetected) Human Metapneumovir PCR Not Detected (NotDetected) Influenza Type A (PCR) Not Detected (NotDetected) Influenza Type B (PCR) Not Detected (NotDetected) M. pneumoniae (PCR) Not Detected (NotDetected) Parainfluenza 1 (PCR) Not Detected (NotDetected) Parainfluenza 2 (PCR) Not Detected (NotDetected) Parainfluenza 3 (PCR) Not Detected (NotDetected) Parainfluenza 4 (PCR) Not Detected (NotDetected) RSV (PCR) Not Detected (NotDetected) Entero/Rhino (PCR) Not Detected (NotDetected) SARS-CoV-2, RNA, NAAT Cancelled Administered Medications Multivitamins 10 ml/ Thiamine HCl 100 mg/ Folic Acid 1 mg/Sodium Chloride 1,011.2 mls @ 500 mls/hr IV .Q2H2M ONE Stop: 03/29/23 22:41 Last Admin: 03/29/23 21:11 Dose: 500 mls/hr Documented By: [facility] Lorazepam 1 mg/ Syringe 1 mls @ 2 mls/min IV UD PRN; Protocol PRN Reason: EtOH Withdrawal AWSS Score 6,7 Stop: 04/28/23 20:39 Last Admin: 03/29/23 21:10 Dose: 2 mls/min Documented By: [facility] Discontinued Medications Thiamine HCl 100 mg/ Syringe 10 mls @ 2 mls/min IV NOW ONE Stop: 03/29/23 21:49 Last Admin: 03/29/23 22:16 Dose: 2 mls/min Documented By: [facility] Discharge Plan Visit Data Chief Complaint: Alcohol Withdrawal Stated Complaint: ALCOHOL WITHDRAW ED Provider: Magda Godfrey Discharge Problem: Alcohol withdrawal, Coronavirus infection Forms Stand Alone Forms: My [facility], Suicide Prevention Resources Prescriptions Prescriptions: No Action losartan 100 mg tablet 100 mg PO DAILY Rx Instructions: PER PT "STOPPED TAKING ABOUT 3 WEEKS AGO". naltrexone 50 mg Tablet 50 mg PO PM Rx Instructions: PER PT "STOPPED TAKING ABOUT 3 WEEKS AGO". escitalopram oxalate 20 mg tablet 20 mg PO DAILY Rx Instructions: PER PT "STOPPED TAKING ABOUT 3 WEEKS AGO". clonidine HCl 0.1 mg tablet 0.1 mg PO TID PRN (Reason: NEEDED) Rx Instructions: PER PT "STOPPED TAKING ABOUT 3 WEEKS AGO". hydroxyzine pamoate 25 mg capsule 25 mg PO BID PRN (Reason: Anxiety) Rx Instructions: PER PT "STOPPED TAKING ABOUT 3 WEEKS AGO". melatonin 10 mg tablet, sublingual 10 mg sublingual HS PRN (Reason: Sleep) Rx Instructions: PER PT "STOPPED TAKING ABOUT 3 WEEKS AGO". Vraylar 1.5 mg capsule 1.5 mg PO DAILY Rx Instructions: PER PT "STOPPED TAKING ABOUT 3 WEEKS AGO". Referrals Referrals: PCP,NO [Primary Care Provider] -
[2023-03-29] MEDS ORDERED: LORazepam 1 MG/1 ML SYR ED Inj Use ONE (21:08)
[2023-03-29] MEDS: LORazepam 1 MG in SYRINGE 0.5 ML IV PRN ×2 (21:10→23:17)
[2023-03-29 21:40] LABS: Adenovirus PCR Not Detected (NotDetected); Bordetella parapertussis PCR Not Detected (NotDetected); Bordetella pertussis PCR Not Detected (NotDetected); Chlamydia pneumoniae PCR Not Detected (NotDetected); Coronavirus 229E PCR Not Detected (NotDetected); Coronavirus CoV-2 (COVID19)PCR Not Detected (NotDetected); Coronavirus NL63 PCR Not Detected (NotDetected); Coronavirus OC43PCR Not Detected (NotDetected); Human Metapneumovirus PCR Not Detected (NotDetected); Influenza A PCR Not Detected (NotDetected); Influenza B PCR Not Detected (NotDetected); Mycoplasma pneumoniae PCR Not Detected (NotDetected); Parainfluenza Virus 1 PCR Not Detected (NotDetected); Parainfluenza Virus 2 PCR Not Detected (NotDetected); Parainfluenza Virus 3 PCR Not Detected (NotDetected); Parainfluenza Virus 4 PCR Not Detected (NotDetected); Respiratory Syncytial VirusPCR Not Detected (NotDetected); Rhinovirus/Enterovirus PCR Not Detected (NotDetected)
[2023-03-29] MEDS ORDERED: THIAMINE HCL 100 MG in SYRINGE 9 ML IV ONE (21:45)
[2023-03-29 21:48] LABS: Coronavirus HKU1 PCR DETECTED (NotDetected)
[2023-03-29 22:03] LABS: Albumin Level 4.7 gm/dl (3.4-5.0); Bilirubin,Total 0.4 mg/dl (0.2-1.0); Calcium 9.3 mg/dl (8.6-10.3); Magnesium 2.1 mg/dl (1.7-2.4); Potassium 3.8 mmol/L (3.5-5.1)
[2023-03-29 22:09] LABS: Albumin Globulin Ratio 1.4 (0.9-2); BUN Creatinine Ratio 20.5 (10-20); Creatinine Clr Calc Pharmacy 97.9 ml/min; Est GFR (African American) 92.1 ml/min; Est GFR (Non-African American) 79.5 ml/min; Globulin 3.3 gm/dl (2.5-4.0)
--- NOTE | 2023-03-29 22:49 | History & Physical Report ---
Date of Service March 29, 2023 Assessment & Plan (1) Alcohol withdrawal: (2) Alcohol withdrawal: (3) Alcoholic intoxication: (4) Alcohol abuse: (5) Alcoholism with alcohol dependence: (6) Coronavirus infection: (7) Dehydration: (8) HTN (hypertension): (9) Depression: (10) Cognitive disorder: Plan Alcohol withdrawal/alcohol intoxication/alcoholism- Received banana bag from the ED Regular diet as tolerated NSS + KCl 20 mill equivalents at 925 MLS per hour x 2 L AWSS per protocol with IV Ativan Zyprexa 5 mg IM every 6 hours as needed for agitation Thiamine 100 mg IV daily Folic acid 1 mg IV daily Zofran 4 mg IV every 6 hours as needed Continue naltrexone 50 mg every evening Acetaminophen 650 mg by mouth every 4 hours as needed for mild pain or fever Cessation counseling Dehydration- Labs suggest hemoconcentration IV fluids as noted above Follow labs serially Bipolar disorder/depression- Continue escitalopram, hydroxyzine, melatonin, and Vraylar Hypertension- Hold losartan Hydralazine 10 mg IV every 4 hours as needed for systolic blood pressure greater than 160 History of Present Illness Chief Complaint: The patient presents to the emergency department with concerns regarding alcohol withdrawal, reporting that he continues to drink at least 1 pint of whiskey daily, and has been feeling fatigued, and has a generalized headache Primary Care Provider: NO PCP The patient is a 42-year-old male with a past medical history including alcohol tox intoxication, alcohol abuse, alcohol withdrawal, depression, alcoholism with alcohol dependence, hypertension, GERD, cognitive disorder, history of concussion, paroxysmal tachycardia, postconcussive syndrome, small vessel disease of brain, and syncope. The patient was most recently admitted for similar symptoms from 09/04-09/06/2022, and 01/04-01/05/2023. He presents again to the ED with concerns regarding alcohol withdrawal. Alcohol level is 173.5. [employer] testing positive for Coronavirus HKU1 Allergies Allergy/AdvReac Type Severity Reaction Status Date / Time No Known Allergies Allergy Verified 03/29/23 21:39 Home Medications Medication Instructions Recorded Confirmed Type losartan 100 mg tablet 100 mg PO DAILY 07/18/20 03/29/23 History naltrexone 50 mg tablet 50 mg PO PM 07/18/20 03/29/23 History escitalopram oxalate 20 mg tablet 20 mg PO DAILY 09/04/22 03/29/23 History cariprazine 1.5 mg capsule 1.5 mg PO DAILY 01/03/23 03/29/23 History (Vraylar) clonidine HCl 0.1 mg tablet 0.1 mg PO TID PRN NEEDED 01/03/23 03/29/23 History hydroxyzine pamoate 25 mg capsule 25 mg PO BID PRN Anxiety 01/03/23 03/29/23 History melatonin 10 mg sublingual tablet 10 mg sublingual HS PRN Sleep 01/03/23 03/29/23 History Past Med/Surg History Medical History (Updated 03/30/23 @ 05:36 by Anant Golden MD) GERD (gastroesophageal reflux disease) Alcoholism with alcohol dependence High blood pressure TIA (transient ischemic attack) Surgical History No pertinent past surgical history Family History Other Family history non-contributory Social History Smoking Status: Current every day smoker Tobacco Type: Cigarettes Cigarettes Per Day: 5-6; Second Hand Exposure: No; Do You Dip or Chew Tobacco: No; Hx Alcohol Use: Yes Alcohol type: hard liquor Hx Substance Use: No Preferred Language: Telugu Communication Ability: Effective Cms Expert Required: No Beliefs That Will Affect Care: None Current Living Situation: Spouse Other Information That Helps Us Care for You: No Feels Safe at Home: Yes Safety Concerns: Feels Safe At This Time Assistive Devices: None Review of Systems Review of Systems: The patient denies chest pain, palpitations, shortness of breath, dyspnea on exertion, cough, lower extremity swelling, sore throat, fevers, chills, sweats, vomiting, diarrhea , constipation, abdominal pain, pelvic pain, blood in urine or stool, dysuria, urinary frequency or urgency, rash, abnormal bruising or bleeding, focal weakness, numbness or tingling in arms or legs, generalized arthralgias or myalgias, back or neck pain, or night sweats. The review of systems is otherwise negative other than for that already noted above, and at least 10 systems have been reviewed. Physical Exam Physical Exam: The patient is lethargic, responds slowly to questions when he does answer, normocephalic and atraumatic, lying in bed and in no acute distress. HEENT--PERRL, EOMI, mucous membranes and oropharynx dry. Neck--supple. No JVD. No bruits. Thyroid normal, trachea midline, no adenopathy. Heart--normal S1 and S2. No murmurs, rubs or gallops. Lungs--clear bilaterally, no respiratory distress, no accessory muscle use. Abdomen--normal bowel sounds and soft. Nontender. Nondistended. Obese Extremities--no cyanosis or clubbing. No edema. Dermatologic--normal skin turgor, normal color, no abnormal lymph nodes, no rash. Neurologic--cranial nerves II through XII grossly intact. Rheumatologic--normal range of motion. Psychiatric-- lethargic, intoxicated Results & Data Results & Data Vital Signs (Past 12 Hours) Vital Signs Temp Pulse Resp BP Pulse Ox O2 Del Method 03/29/23 20:09 79 18 95 Room Air 03/29/23 20:06 100 H 03/29/23 19:54 36.5 C 100 H 22 146/99 H 95 Room Air Laboratory Results Laboratory Results WBC 8.61 K/ul (4.8-10.8) 03/30/23 03:52 RBC 5.04 M/uL (4.70-6.10) 03/30/23 03:52 Hgb 16.0 g/dl (14.0-18.0) 03/30/23 03:52 Hct 46.0 % (42.0-52.0) 03/30/23 03:52 MCV 91.3 fL (80.0-100.0) 03/30/23 03:52 MCH 31.7 pg (25.0-34.0) 03/30/23 03:52 MCHC 34.8 g/dL (32.0-36.0) 03/30/23 03:52 RDW Std Deviation 41.9 fL (36.4-46.3) 03/30/23 03:52 RDW Coeff of Donnie 12.7 % (11.5-14.5) 03/30/23 03:52 Plt Count 243 K/uL (130-400) 03/30/23 03:52 MPV 10.5 fL (9.4-12.4) 03/30/23 03:52 Immature Gran % (Auto) 0.3 % 03/30/23 03:52 Neut % (Auto) 69.5 % 03/30/23 03:52 Lymph % (Auto) 19.6 % 03/30/23 03:52 [place] % (Auto) 10.1 % 03/30/23 03:52 Eos % (Auto) 0.2 % 03/30/23 03:52 Baso % (Auto) 0.3 % 03/30/23 03:52 Neut # (Auto) 5.97 K/uL (1.40-6.50) 03/30/23 03:52 Lymph # (Auto) 1.69 K/uL (1.20-3.40) 03/30/23 03:52 [place] # (Auto) 0.87 K/uL (0.11-0.59) H 03/30/23 03:52 Eos # (Auto) 0.02 K/uL (0.00-0.50) 03/30/23 03:52 Baso # (Auto) 0.03 K/uL (0.00-0.20) 03/30/23 03:52 Immature Gran # (Auto) 0.03 K/uL (0.01-0.20) 03/30/23 03:52 Sodium 138 mmol/L (136-145) 03/30/23 03:52 Potassium 4.2 mmol/L (3.5-5.1) 03/30/23 03:52 Chloride 103 mmol/L (98-107) 03/30/23 03:52 Carbon Dioxide 21 mmol/L (21-32) 03/30/23 03:52 Anion Gap 14 (3-11) H 03/30/23 03:52 BUN 24 mg/dl (6-23) H 03/30/23 03:52 Creatinine 0.97 mg/dl (0.6-1.4) 03/30/23 03:52 Est Cr Clr Drug Dosing 113.1 ml/min 03/30/23 03:52 Est GFR ( Amer) 109.6 ml/min 03/30/23 03:52 Est GFR (Non-Af Amer) 94.6 ml/min 03/30/23 03:52 BUN/Creatinine Ratio 24.7 (10-20) H 03/30/23 03:52 Glucose 74 mg/dl (70-99(Fasting)) 03/30/23 03:52 Calcium 9.1 mg/dl (8.6-10.3) 03/30/23 03:52 Magnesium 1.9 mg/dl (1.7-2.4) 03/30/23 03:52 Total Bilirubin 0.8 mg/dl (0.2-1.0) 03/30/23 03:52 AST 25 U/L (13-39) 03/30/23 03:52 ALT 31 U/L (7-52) 03/30/23 03:52 Alkaline Phosphatase 64 U/L (34-104) 03/30/23 03:52 Total Protein 7.2 gm/dl (6.0-8.3) 03/30/23 03:52 Albumin 4.3 gm/dl (3.4-5.0) 03/30/23 03:52 Globulin 2.9 gm/dl (2.5-4.0) 03/30/23 03:52 Albumin/Globulin Ratio 1.5 (0.9-2) 03/30/23 03:52 Ethyl Alcohol mg/dL 173.5 mg/dl (<10.0) H 03/29/23 20:06 Adenovirus (PCR) Not Detected (NotDetected) 03/29/23 20:06 B. pertussis DNA (PCR) Not Detected (NotDetected) 03/29/23 20:06 B.parapertussis DNA PCR Not Detected (NotDetected) 03/29/23 20:06 C. pneumoniae DNA (PCR) Not Detected (NotDetected) 03/29/23 20:06 Coronavirus OC43 (PCR) Not Detected (NotDetected) 03/29/23 20:06 Coronavirus HKU1 (PCR) DETECTED (NotDetected) A* 03/29/23 20:06 Coronavirus 229E (PCR) Not Detected (NotDetected) 03/29/23 20:06 SARS-CoV-2 (PCR) Not Detected (NotDetected) 03/29/23 20:06 Coronavirus NL63 (PCR) Not Detected (NotDetected) 03/29/23 20:06 Human Metapneumovir PCR Not Detected (NotDetected) 03/29/23 20:06 Influenza Type A (PCR) Not Detected (NotDetected) 03/29/23 20:06 Influenza Type B (PCR) Not Detected (NotDetected) 03/29/23 20:06 M. pneumoniae (PCR) Not Detected (NotDetected) 03/29/23 20:06 Parainfluenza 1 (PCR) Not Detected (NotDetected) 03/29/23 20:06 Parainfluenza 2 (PCR) Not Detected (NotDetected) 03/29/23 20:06 Parainfluenza 3 (PCR) Not Detected (NotDetected) 03/29/23 20:06 Parainfluenza 4 (PCR) Not Detected (NotDetected) 03/29/23 20:06 RSV (PCR) Not Detected (NotDetected) 03/29/23 20:06 Entero/Rhino (PCR) Not Detected (NotDetected) 03/29/23 20:06 SARS-CoV-2, RNA, NAAT Cancelled 03/29/23 20:06 Code Status & VTE Plan Code Status Full code VTE Prophylaxis Plan VTE Prophylaxis will be ordered: Yes PG Care Time/CCT Total # of Minutes Spent Total Time Spent with Patient: Total time spent is greater than 50% in coordination of care (as documented) at patient's floor/unit and/or counseling patient: Coding Level of Care Code 65683 INT INP/OBS CARE 3/75MIN Diagnoses Alcohol withdrawal F10.239 Alcoholic intoxication F10.929 Alcohol abuse F10.10 Alcoholism with alcohol dependence F10.20 Coronavirus infection B34.2 Dehydration E86.0 HTN (hypertension) I10 Depression F32.9 Depression Type: unspecified Cognitive disorder F09 (8) Depression Depression Type: unspecified Qualified Code(s): F32.9 - Major depressive disorder, single episode, unspecified
[2023-03-30] MEDS ORDERED: OLANZapine 10 MG/2.1 ML SDV IM PRN (00:39)
[2023-03-30] MEDS ORDERED: hydrOXYzine HCl 25 MG TAB PO PRN (00:39)
[2023-03-30] MEDS ORDERED: ACETAMINOPHEN 325 MG TAB PO PRN (00:39)
[2023-03-30] MEDS ORDERED: ONDANSETRON INJ 2 MG/ML 2 ML VIAL IV PRN (00:39)
[2023-03-30] MEDS ORDERED: MELATONIN 3 MG TAB PO PRN (01:09)
[2023-03-30] MEDS: NSS + 20MEQ KCL 20 MEQ/1,000 ML BAG IV SCH ×2 (01:42→10:01)
[2023-03-30 04:42] LABS: Basophils # (auto) 0.03 K/uL (0.00-0.20); Basophils % (auto) 0.3 %; Eosinophils # (auto) 0.02 K/uL (0.00-0.50); Eosinophils % (auto) 0.2 %; Immature Granulocytes # (auto) 0.03 K/uL (0.01-0.20); Immature Granulocytes % (auto) 0.3 %; Lymphocytes # (auto) 1.69 K/uL (1.20-3.40); Lymphocytes % (auto) 19.6 %; Mean Corpuscular Hemoglobin 31.7 pg (25.0-34.0); Mean Corpuscular Hgb Conc 34.8 g/dL (32.0-36.0); Mean Corpuscular Volume 91.3 fL (80.0-100.0); Mean Platelet Volume 10.5 fL (9.4-12.4); Monocytes # (auto) 0.87 K/uL (0.11-0.59); Monocytes % (auto) 10.1 %; Neutrophils # (auto) 5.97 K/uL (1.40-6.50); Neutrophils % (auto) 69.5 %; Platelet Count 243 K/uL (130-400); RDW Coefficient of Variation 12.7 % (11.5-14.5); RDW Standard Deviation 41.9 fL (36.4-46.3); Red Blood Count 5.04 M/uL (4.70-6.10); White Blood Count 8.61 K/ul (4.8-10.8)
[2023-03-30 05:16] LABS: Albumin Level 4.3 gm/dl (3.4-5.0); Bilirubin,Total 0.8 mg/dl (0.2-1.0); Calcium 9.1 mg/dl (8.6-10.3); Magnesium 1.9 mg/dl (1.7-2.4); Potassium 4.2 mmol/L (3.5-5.1)
[2023-03-30 05:22] LABS: Albumin Globulin Ratio 1.5 (0.9-2); BUN Creatinine Ratio 24.7 (10-20); Creatinine Clr Calc Pharmacy 113.1 ml/min; Est GFR (African American) 109.6 ml/min; Est GFR (Non-African American) 94.6 ml/min; Globulin 2.9 gm/dl (2.5-4.0); Total Protein 7.2 gm/dl (6.0-8.3)
[2023-03-30] MEDS ORDERED: hydrALAZINE HCL 20 MG/ML VIAL IV PRN (05:41)
[2023-03-30] MEDS ORDERED: LORazepam 1 MG/1 ML SYR ED Inj Use ONE (06:23)
--- NOTE | 2023-03-30 06:38 | CT Scan Report ---
CT OF THE HEAD WITHOUT CONTRAST CLINICAL HISTORY: headache, alcohol withdrawal, hx of brain COMPARISON STUDY: MRI of the brain February 19, 2015. Head CT September 04, 2022. CT DOSE: 625.8 mGy.cm TECHNIQUE: Helical axial images of the head were obtained without IV contrast. Automated exposure con trol was utilized for the study. A dose lowering technique was utilized adhering to the principles o f ALARA. FINDINGS: No acute intracranial hemorrhage, midline shift or mass effect is present. The ventricular system is unremarkable. The basal cisterns are patent. No extra-axial collections are present. There are no findings to suggest acute dural sinus thrombosis or acute territorial infarct. No significant calvarial abnormalities are present. IMPRESSION: No acute intracranial findings. ACT 112: Negative or not required by law. Electronically signed by: Darnell Hernandez M.D. 03/30/2023 6:35 AM
[2023-03-30] MEDS ORDERED: FOLIC ACID 1 MG in SYRINGE 9.8 ML IV SCH (09:00)
--- NOTE | 2023-03-30 09:12 | Hospitalist Progress Note ---
Date of Service March 30, 2023 Assessment & Plan (1) Alcohol withdrawal: Plan: Alcohol intoxication and acute alcohol withdrawal present on admission -last night lorazepam 1 mg IV x 2, 2 mg IV x 1 early this am -continue PRN lorazepam based on AWSS -CBC CMP unremarkable this AM except mildly elevated anion gap - continue IV fluids -AM BMP, Mag -continue thiamine/folate -continue PRN zofran -improved but at risk for developing worsening/severe withdrawal based on time course and history (2) Alcoholic intoxication: (3) Alcohol abuse: Plan: Intends to stop drinking. Has a pam-based meeting he intends to start attending again. Intends to continue taking naloxone - has rx at home -continue naltrexone -counseled alcohol cessation (4) Alcoholism with alcohol dependence: (5) Coronavirus infection: Plan: non-covid19 coronavirus strain causing mild URI -supportive care (6) Dehydration: (7) HTN (hypertension): (8) Depression: (9) Cognitive disorder: Plan Bipolar disorder/depression- Continue escitalopram, hydroxyzine, melatonin, and Vraylar Hypertension- Hold losartan - resume when withdrawal improving taking consistent po Hydralazine 10 mg IV every 4 hours as needed for systolic blood pressure greater than 160 Admission and Anticipated Discharge Date Admission Date: March 29, 2023 Subjective He is feeling better, has "cold" sx of rhinitis and cough, shakes/sweats/anxiety from alcohol withdrawal much improved. Physical Exam 2 Physical Exam: PHYSICAL EXAMINATION Last 24h vital signs reviewed, see documentation in flowsheet General: comfortable appearing, no distress, lying on ED gurney HEENT: Normocephalic, atraumatic, pupils round and equal, sclerae anicteric, no conjunctival injection, moist mucus membranes Lungs: Normal respiratory effort. Clear to auscultation bilaterally. No RRW. has dry cough Heart: Regular rate and rhythm, no murmurs. No JVD Abdomen: Soft, nontender, nondistended. Bowel sounds present. Extremities: Warm, dry, well-perfused. No extremity edema. Neuro: Alert and oriented x 4, face symmetric, moves 4 extremities well Skin warm/dry. No tremor Psych: Normal affect and behavior Results & Data Results & Data Vital Signs (Past 12 Hours) Vital Signs Temp Pulse Pulse Resp BP BP Pulse Ox 03/30/23 07:24 72 03/30/23 03:00 72 15 145/88 H 94 03/30/23 02:30 71 23 126/74 92 03/30/23 02:00 84 17 125/73 94 03/30/23 01:54 03/30/23 01:21 36.8 C 83 18 151/98 H 99 03/30/23 01:00 85 151/98 H 91 03/30/23 00:30 85 18 140/98 91 03/30/23 00:26 82 03/30/23 00:00 86 18 146/96 H 94 03/29/23 21:58 72 20 146/81 H 93 Pulse Ox O2 Del Method O2 Del Method 03/30/23 07:24 03/30/23 03:00 03/30/23 02:30 03/30/23 02:00 03/30/23 01:54 95 Room Air 03/30/23 01:21 Room Air 03/30/23 01:00 03/30/23 00:30 03/30/23 00:26 03/30/23 00:00 03/29/23 21:58 Room Air Laboratory Results 03/30/23 03:52 03/30/23 03:[address] 03/30/23 05:28 CT OF THE HEAD WITHOUT CONTRAST CLINICAL HISTORY: headache, alcohol withdrawal, hx of brain COMPARISON STUDY: MRI of the brain February 19, 2015. Head CT September 04, 2022. CT DOSE: 625.8 mGy.cm TECHNIQUE: Helical axial images of the head were obtained without IV contrast. Automated exposure control was utilized for the study. A dose lowering technique was utilized adhering to the principles of ALARA. FINDINGS: No acute intracranial hemorrhage, midline shift or mass effect is present. The ventricular system is unremarkable. The basal cisterns are patent. No extra-axial collections are present. There are no findings to suggest acute dural sinus thrombosis or acute territorial infarct. No significant calvarial abnormalities are present. IMPRESSION: No acute intracranial findings. ACT 112: Negative or not required by law. Electronically signed by: Darnell Hernandez M.D. 03/30/2023 6:35 AM PG Care Time/CCT Total # of Minutes Spent Total Time Spent with Patient: Total time spent is greater than 50% in coordination of care (as documented) at patient's floor/unit and/or counseling patient: Coding Level of Care Code 69410 SUB INP/OBS CARE MIN Diagnoses Alcohol withdrawal F10.239 Alcoholic intoxication F10.929 Alcohol abuse F10.10 Alcoholism with alcohol dependence F10.20 Coronavirus infection B34.2 Dehydration E86.0 HTN (hypertension) I10 Depression F32.9 Depression Type: unspecified Cognitive disorder F09 (8) Depression Depression Type: unspecified Qualified Code(s): F32.9 - Major depressive disorder, single episode, unspecified
[2023-03-30] MEDS: ENOXAPARIN INJ 40 MG/0.4 ML SYR SQ SCH (09:24)
[2023-03-30] MEDS: CARIPRAZINE HCL 1.5 MG CAP PO SCH (09:24)
[2023-03-30] MEDS: ESCITALOPRAM OXALATE 20 MG TAB PO SCH (09:24)
[2023-03-30] MEDS: FOLIC ACID 1 MG in SYRINGE 9.8 ML IV SCH (09:24)
[2023-03-30] MEDS: THIAMINE HCL 100 MG in SYRINGE 9 ML IV SCH (09:24)
[2023-03-30] MEDS ORDERED: NALTREXONE HCL 50 MG TAB PO SCH (21:00)
[2023-03-30] MEDS ORDERED: NICOTINE 14 MG/24 HR PATCH TD STA (23:38)
[2023-03-31 08:02] LABS: Basophils # (auto) 0.02 K/uL (0.00-0.20); Basophils % (auto) 0.3 %; Eosinophils # (auto) 0.12 K/uL (0.00-0.50); Eosinophils % (auto) 2.1 %; Hematocrit (blood only) 42.7 % (42.0-52.0); Hemoglobin 15.1 g/dl (14.0-18.0); Immature Granulocytes # (auto) 0.01 K/uL (0.01-0.20); Immature Granulocytes % (auto) 0.2 %; Lymphocytes # (auto) 1.75 K/uL (1.20-3.40); Lymphocytes % (auto) 30.4 %; Mean Corpuscular Hemoglobin 31.6 pg (25.0-34.0); Mean Corpuscular Hgb Conc 35.4 g/dL (32.0-36.0); Mean Corpuscular Volume 89.3 fL (80.0-100.0); Mean Platelet Volume 10.6 fL (9.4-12.4); Monocytes # (auto) 0.92 K/uL (0.11-0.59); Neutrophils # (auto) 2.94 K/uL (1.40-6.50); Platelet Count 220 K/uL (130-400); RDW Coefficient of Variation 12.1 % (11.5-14.5); Red Blood Count 4.78 M/uL (4.70-6.10); White Blood Count 5.76 K/ul (4.8-10.8)
[2023-03-31 08:29] LABS: Albumin Globulin Ratio 1.5 (0.9-2); Albumin Level 4.1 gm/dl (3.4-5.0); Calcium 9.3 mg/dl (8.6-10.3); Creatinine Clr Calc Pharmacy 133.7 ml/min; Est GFR (African American) 122.8 ml/min; Globulin 2.7 gm/dl (2.5-4.0); Potassium 4.1 mmol/L (3.5-5.1); Total Protein 6.8 gm/dl (6.0-8.3)
[2023-03-31] MEDS ORDERED: NICOTINE 14 MG/24 HR PATCH TD SCH ×2 (09:00)
[2023-03-31] MEDS ORDERED: chlordiazePOXIDE HCl 25 MG CAP PO ONE (09:57)
[2023-03-31] MEDS: ESCITALOPRAM OXALATE 20 MG TAB PO SCH (10:12)
[2023-03-31] MEDS: CARIPRAZINE HCL 1.5 MG CAP PO SCH (10:12)
[2023-03-31] MEDS: ENOXAPARIN INJ 40 MG/0.4 ML SYR SQ SCH (10:14)
[2023-03-31] MEDS: THIAMINE HCL 100 MG in SYRINGE 9 ML IV SCH (11:24)
[2023-03-31] MEDS: FOLIC ACID 1 MG in SYRINGE 9.8 ML IV SCH (11:24)
--- NOTE | 2023-03-31 18:43 | Discharge Summary ---
Date of Service March 31, 2023 Admission HPI Per Admitting Provider The patient is a 42-year-old male with a past medical history including alcohol tox intoxication, alcohol abuse, alcohol withdrawal, depression, alcoholism with alcohol dependence, hypertension, GERD, cognitive disorder, history of concussion, paroxysmal tachycardia, postconcussive syndrome, small vessel disease of brain, and syncope. The patient was most recently admitted for similar symptoms from 09/04-09/06/2022, and 01/04-01/05/2023. He presents again to the ED with concerns regarding alcohol withdrawal. Alcohol level is 173.5. [employer] testing positive for Coronavirus HKU1 Principal Diagnosis Alcohol withdrawal, coronavirus URI Discharge Exam PHYSICAL EXAMINATION Last 24h vital signs reviewed, see documentation in flowsheet General: comfortable appearing, no distress, resting in bed looks much improved HEENT: Normocephalic, atraumatic, pupils round and equal, sclerae anicteric, no conjunctival injection, moist mucus membranes Lungs: Normal respiratory effort. Clear to auscultation bilaterally. No RRW. Heart: Regular rate and rhythm, no murmurs. No JVD Abdomen: Soft, nontender, nondistended. Bowel sounds present. Extremities: Warm, dry, well-perfused. No extremity edema. Neuro: Alert and oriented x 4, face symmetric, moves 4 extremities well Skin warm/dry. No tremor Psych: Normal affect and behavior Discharge Data Allergies Allergy/AdvReac Type Severity Reaction Status Date / Time No Known Allergies Allergy Verified 03/29/23 21:39 Consultations 03/29/23 22:15 ED Decision to Admit Stat Ordered Studies 03/30/23 05:28 CT head/brain wo con Urgent Head CT 03/30/23 05:28 CT OF THE HEAD WITHOUT CONTRAST CLINICAL HISTORY: headache, alcohol withdrawal, hx of brain COMPARISON STUDY: MRI of the brain February 19, 2015. Head CT September 04, 2022. CT DOSE: 625.8 mGy.cm TECHNIQUE: Helical axial images of the head were obtained without IV contrast. Automated exposure control was utilized for the study. A dose lowering technique was utilized adhering to the principles of ALARA. FINDINGS: No acute intracranial hemorrhage, midline shift or mass effect is present. The ventricular system is unremarkable. The basal cisterns are patent. No extra-axial collections are present. There are no findings to suggest acute dural sinus thrombosis or acute territorial infarct. No significant calvarial abnormalities are present. IMPRESSION: No acute intracranial findings. ACT 112: Negative or not required by law. Electronically signed by: Darnell Hernandez M.D. 03/30/2023 6:35 AM 03/31/23 07:21 03/31/23 07:21 Hospital Course (1) Alcohol withdrawal: Alcohol intoxication and acute alcohol withdrawal present on admission -treated with IV lorazepam first 24h based on AWSS assessment -improved rapidly and minimal symptoms, no IV or po lorazepam for 24h so safe for home discharge with oral chlordiazepoxide taper -counseled alcohol cessation - see below (2) Alcoholic intoxication: resolved. had headache in ED, head CT no acute findings, resolved (3) Alcohol abuse: Intends to stop drinking. Has a pam-based meeting he intends to start attending again. Intends to continue taking naloxone - has rx at home -continue naltrexone -counseled alcohol cessation 03/30, 03/31 (4) Alcoholism with alcohol dependence: (5) Coronavirus infection: non-covid19 coronavirus strain causing mild URI -supportive care (6) Dehydration: (7) HTN (hypertension): (8) Depression: (9) Cognitive disorder: Plan Bipolar disorder/depression- Continue escitalopram, hydroxyzine, melatonin, and Vraylar Hypertension- resumed losartan Total Time Total Time Spent Total Time Spent (In Minutes): 25 minutes Discharge Plan Discharge Items Patient Disposition: Home - Self-Care Reason For Visit: ALCOHOL WITHDRAW, HEADACHE, DEHYDRATION, CORONOVIR Discharge Diagnosis: Alcohol withdrawal, coronavirus URI, dehydration Condition on Discharge: Good Activity: Resume your previous activity Non-emergency contact: Primary Care Provider Call non-emergency contact if: you have any medication questions Follow-up/Referrals: PCP,NO [Primary Care Provider] - Diet: Regular Addtl Attending Provider Instructions: You were treated for dehydration, alcohol withdrawal. You have viral infection with [id number] coronavirus (basically a cold) I strongly advise you stop drinking alcohol, start going to your meeting again, and continue taking naltrexone. I prescribed a chlordiazepoxide (librium) taper to finish treating your alcohol withdrawal -if you develop worsening/severe alcohol withdrawal seek care in the ER immediately For your head cold you can take [id number] remedies - there are decongestants (usually labeled coricidin or "HBP") that are safe for people with high blood pressure. The retail pharmacist can help if you have any questions about those. I checked two blood tests for your neuropathy that are pending (B12 and B1). Many people who drink alcohol are low in B1 (thiamine). You can try a thiamine supplement and see if it helps your neuropathy. You can buy 100 mg thiamine (B1) tablets/capsules from the [employer] or [employer]. Take 2 twice a day for seven days, then take one daily and continue -I will contact you if B1 or B12 levels from your blood test are low. It can take over a week to get results. You can also check labs on the patient portal and follow up with your primary care doctor. Pending Studies at Discharge: No Stand-Alone Forms: My [facility] [employer], Work/School Release, Smoking Cessation Medications and DC Order Prescriptions: New chlordiazepoxide HCl 25 mg capsule See Taper PO BID Qty: 14 0RF Taper: Taper, Blank 50 mg TWICE A DAY for 2 Days 25 mg TWICE A DAY for 2 Days 25 mg DAILY for 2 Days Continued losartan 100 mg tablet 100 mg PO DAILY Rx Instructions: PER PT "STOPPED TAKING ABOUT 3 WEEKS AGO". naltrexone 50 mg Tablet 50 mg PO PM Rx Instructions: PER PT "STOPPED TAKING ABOUT 3 WEEKS AGO". escitalopram oxalate 20 mg tablet 20 mg PO DAILY Rx Instructions: PER PT "STOPPED TAKING ABOUT 3 WEEKS AGO". clonidine HCl 0.1 mg tablet 0.1 mg PO TID PRN (Reason: NEEDED) Rx Instructions: PER PT "STOPPED TAKING ABOUT 3 WEEKS AGO". hydroxyzine pamoate 25 mg capsule 25 mg PO BID PRN (Reason: Anxiety) Rx Instructions: PER PT "STOPPED TAKING ABOUT 3 WEEKS AGO". melatonin 10 mg tablet, sublingual 10 mg sublingual HS PRN (Reason: Sleep) Rx Instructions: PER PT "STOPPED TAKING ABOUT 3 WEEKS AGO". Vraylar 1.5 mg capsule 1.5 mg PO DAILY Rx Instructions: PER PT "STOPPED TAKING ABOUT 3 WEEKS AGO". Discharge Orders: Discharge Order (Routine); Ordered 03/31/23 Ordered By: Shanell Almaraz Admission Data Admit Date/Time: 03/29/23 22:48 Attending Provider: Shanell Almaraz Admit Provider: Anant Golden Primary Care Provider: PCP,NO Other Providers: Anant Golden Other Interventions: Discharge Summary Assessment (RN) Last Done: 03/31/23 12:05 Coding Level of Care Code 12664 IN/OBS DISCH 30 MIN/LESS Diagnoses Alcohol withdrawal F10.239 Alcoholic intoxication F10.929 Alcohol abuse F10.10 Alcoholism with alcohol dependence F10.20 Coronavirus infection B34.2 Dehydration E86.0 HTN (hypertension) I10 Depression F32.9 Depression Type: unspecified Cognitive disorder F09
== END 2023-03-31 12:43 | disposition home or self-care (01) | DRG 897 ==
LOC: ED 19:50 → INTOOBSV 22:48 → EDINP 22:48 → SUATTDRO 22:48 → 2S 03-30 00:40

== ENCOUNTER 2023-05-17 22:06 | Observation (INO) ==
[2023-05-17 22:45] LABS: Basophils # (auto) 0.02 K/uL (0.00-0.20); Basophils % (auto) 0.2 %; Eosinophils # (auto) 0.03 K/uL (0.00-0.50); Eosinophils % (auto) 0.3 %; Hematocrit (blood only) 51.9 % (42.0-52.0); Hemoglobin 17.8 g/dl (14.0-18.0); Immature Granulocytes # (auto) 0.04 K/uL (0.01-0.20); Immature Granulocytes % (auto) 0.3 %; Lymphocytes % (auto) 15.5 %; Mean Corpuscular Hemoglobin 31.3 pg (25.0-34.0); Mean Corpuscular Hgb Conc 34.3 g/dL (32.0-36.0); Mean Corpuscular Volume 91.4 fL (80.0-100.0); Mean Platelet Volume 10.2 fL (9.4-12.4); Monocytes # (auto) 1.12 K/uL (0.11-0.59); Monocytes % (auto) 9.6 %; Neutrophils # (auto) 8.63 K/uL (1.40-6.50); Neutrophils % (auto) 74.1 %; Platelet Count 247 K/uL (130-400); RDW Coefficient of Variation 13.1 % (11.5-14.5); Red Blood Count 5.68 M/uL (4.70-6.10); White Blood Count 11.64 K/ul (4.8-10.8)
[2023-05-17 23:01] LABS: Albumin Globulin Ratio 1.5 (0.9-2); Albumin Level 4.8 gm/dl (3.4-5.0); BUN Creatinine Ratio 15.3 (10-20); Bilirubin,Total 0.5 mg/dl (0.2-1.0); Calcium 9.2 mg/dl (8.6-10.3); Creatinine Clr Calc Pharmacy 74.9 ml/min; Est GFR (Non-African American) 58.6 ml/min; Globulin 3.3 gm/dl (2.5-4.0); Potassium 3.4 mmol/L (3.5-5.1); Total Protein 8.1 gm/dl (6.0-8.3)
[2023-05-17 23:12] LABS: Partial Thromboplastin Ratio 0.9; Partial Thromboplastin Time 25 Seconds (21-31); Prothrombin Time 10.8 Seconds (9.0-12.0)
--- NOTE | 2023-05-17 23:25 | Emergency Department Note ---
Impression & Plan Alcohol withdrawal, Acute hypokalemia, Transaminitis ED Provider Note NAME: JOHN JACKSON AGE: 42 SEX: M : 1980 ARRIVES VIA: Walk-In INFORMANT: Patient, ED PROVIDER(S): Prateek Bauer MD CHIEF COMPLAINT: MEDICAL DECISION MAKING: Patient presented due to concern for alcohol withdrawal related symptoms. The patient's last rate was earlier today. IV was established and blood work was obtained. Patient with a white count of 11 normal H&H and platelet count. Sodium normal. Potassium mildly low at 3.4. Creatinine 1.4 which is slightly up from prior of 1.1 in March. BSG 156 elevated AST and ALT likely consistent with alcohol use. Alcohol 184. Patient current alcohol 184 states that he does develop withdrawal related symptoms. The patient was ordered 5 of Valium and CIWA protocol was initiated and patient was ordered a banana bag. I did speak with the on-call hospitalist Dr. Still and the patient was admitted to the medicine service. Critical Care: I have personally spent 35 minutes of critical care time in direct management of this patient. This includes bedside care, interpretation of diagnostic studies, and testing, discussion with consultants, patient, and family members, and other require inpatient management activities. This 35 minutes is in excess of all separately billable procedures. Discussion w/ other healthcare providers: None Prior /Outside records reviewed: None Differential diagnosis: Alcohol intoxication, toxicologic, infection, hypoglycemia, electrolyte abnormalities, arrhythmia, neurologic, trauma, as well as others were considered. Diagnostics, as interpreted by me: ECG: Normal sinus rhythm, rate of 89, normal intervals, normal axis no ST elevations. Cardiac monitoring: An order was placed for continuous cardiac monitoring. The monitor shows a rate of 92 with sinus rhythm. Patient was placed on pulse oximetry Medical decision rules: None Imaging studies: None HPI: Patient presents due to concern for withdrawal and would like to achieve clinical sobriety. The patient states that he typically goes on "benders." Patient states that he has had some increasing stressors which leads him to drink in binges. The patient states that he last drank heavily about 30 days ago. The patient has been drinking heavily for the last 7 days and states that he does have associated withdrawal. The patient states that he drank about 1/5 prior to noon this morning. He did have 1 episode of vomiting. Patient denies any prior history of seizures secondary to withdrawal. Patient denies any chest pains or shortness of breath. The patient does use tobacco but denies any drug use. Patient is employed and states work is going "fine." Patient states that he does feel tremulous and shaky. PAST MEDICAL HISTORY: See Below PAST SURGICAL HISTORY: See Below SOCIAL HISTORY: See Below HOME MEDICATIONS: See Below ALLERGIES: See Below VITALS: See Below PHYSICAL EXAMINATION: GENERAL: NAD, non-toxic. Wearing glasses EYE EXAM: Normal conjunctiva. PERRL, no anisocoria and EOM's grossly intact w/o pain. OROPHARYNX: Moist mucus membranes, grossly normal dentition. No tongue fasciculations. NECK: Trachea midline, no stridor. Supple, no nuchal rigidity, no adenopathy, non-tender. No signs of meningismus. FROM of the neck with good chin to chest and neck extension. LUNGS: Clear to auscultation. Normal chest wall mechanics. HEART: NSR, no MRG. ABDOMEN: Abdomen soft, non-tender, no masses, no rebound or guarding. BACK: No CVA TTP. SKIN: No rashes and no bruising. UPPER EXTREMITIES: Upper extremities are grossly normal. LOWER EXTREMITIES: Grossly normal, no edema. NEURO EXAM: A&O x3, cranial nerves II-XII grossly intact, normal speech, moves all 4 extremities. Past Med/Surg History Medical History GERD (gastroesophageal reflux disease) Alcoholism with alcohol dependence High blood pressure TIA (transient ischemic attack) Surgical History No pertinent past surgical history Family History Other Family history non-contributory Social History Smoking Status: Current every day smoker Tobacco Type: Cigarettes Cigarettes Per Day: 5-6; Second Hand Exposure: No; Do You Dip or Chew Tobacco: No; Hx Alcohol Use: Yes Alcohol type: hard liquor Hx Substance Use: No Preferred Language: [place] Communication Ability: Effective [employer]amel [employer] Operator Required: No Beliefs That Will Affect Care: None Current Living Situation: Spouse Feels Safe at Home: Yes Assistive Devices: None Allergies Allergies Allergy/AdvReac Type Severity Reaction Status Date / Time No Known Allergies Allergy Verified 05/17/23 23:20 Home Meds Home Medications Medication Instructions Recorded Confirmed losartan 100 mg tablet 100 mg PO DAILY 07/18/20 05/17/23 naltrexone 50 mg tablet 50 mg PO PM 07/18/20 05/17/23 escitalopram oxalate 20 mg tablet 20 mg PO DAILY 09/04/22 05/17/23 clonidine HCl 0.1 mg tablet 0.1 mg PO TID PRN NEEDED 01/03/23 05/17/23 hydroxyzine pamoate 25 mg capsule 25 mg PO BID PRN Anxiety 01/03/23 05/17/23 Results & Data (ED) Vital Signs Vital Signs - 24 hr 05/17/23 22:12 05/17/23 23:54 05/18/23 00:27 Temperature 36.6 C Temperature Source Temporal Artery Scan Pulse Rate 94 H 70 Pulse Rate [Apical] 70 Respiratory Rate 18 15 Respiratory Effort / Characteristics Non-Labored Non-Labored Respiratory Depth Normal Normal Blood Pressure 136/86 Blood Pressure [Right Arm] 137/83 Blood Pressure Mean 102 Blood Pressure Mean [Right Arm] 101 Pulse Oximetry 95 91 Oxygen Delivery Method Room Air Room Air Sepsis Recent Fever Within 48 Hours No Sepsis New/Unexplained Change in Mental Status No Sepsis Action Taken by Nursing No Action Required Home Medications Current Medication List: was personally reviewed by me Laboratory Data Attestation: I reviewed the patient's lab results. 05/17/23 22:30 05/17/23 22:30 Lab Results 05/17/23 Range/Units 22:30 WBC 11.64 H (4.8-10.8) K/ul RBC 5.68 (4.70-6.10) M/uL Hgb 17.8 (14.0-18.0) g/dl Hct 51.9 (42.0-52.0) % MCV 91.4 (80.0-100.0) fL MCH 31.3 (25.0-34.0) pg MCHC 34.3 (32.0-36.0) g/dL RDW Std Deviation 44.0 (36.4-46.3) fL RDW Coeff of Donnie 13.1 (11.5-14.5) % Plt Count 247 (130-400) K/uL MPV 10.2 (9.4-12.4) fL Immature Gran % (Auto) 0.3 % Neut % (Auto) 74.1 % Lymph % (Auto) 15.5 % [place] % (Auto) 9.6 % Eos % (Auto) 0.3 % Baso % (Auto) 0.2 % Neut # (Auto) 8.63 H (1.40-6.50) K/uL Lymph # (Auto) 1.80 (1.20-3.40) K/uL [place] # (Auto) 1.12 H (0.11-0.59) K/uL Eos # (Auto) 0.03 (0.00-0.50) K/uL Baso # (Auto) 0.02 (0.00-0.20) K/uL Immature Gran # (Auto) 0.04 (0.01-0.20) K/uL PT 10.8 (9.0-12.0) Seconds INR 1.0 (0.9-1.1) APTT 25 (21-31) Seconds PTT Ratio 0.9 Sodium 139 (136-145) mmol/L Potassium 3.4 L (3.5-5.1) mmol/L Chloride 100 (98-107) mmol/L Carbon Dioxide 28 (21-32) mmol/L Anion Gap 11 (3-11) BUN 22 (6-23) mg/dl Creatinine 1.44 H (0.6-1.4) mg/dl Est Cr Clr Drug Dosing 74.9 ml/min Est GFR ( Amer) 68.0 ml/min Est GFR (Non-Af Amer) 58.6 ml/min BUN/Creatinine Ratio 15.3 (10-20) Glucose 156 H (70-99(Fasting)) mg/dl Calcium 9.2 (8.6-10.3) mg/dl Total Bilirubin 0.5 (0.2-1.0) mg/dl AST 52 H (13-39) U/L ALT 73 H (7-52) U/L Alkaline Phosphatase 83 (34-104) U/L Total Protein 8.1 (6.0-8.3) gm/dl Albumin 4.8 (3.4-5.0) gm/dl Globulin 3.3 (2.5-4.0) gm/dl Albumin/Globulin Ratio 1.5 (0.9-2) Ethyl Alcohol mg/dL 184.0 H (<10.0) mg/dl Administered Medications Discontinued Medications Diazepam (Diazepam 5 Mg/Ml 10ml Vial) 5 mg IV NOW STA Stop: 05/17/23 23:33 Last Admin: 05/17/23 23:56 Dose: 5 mg Documented By: SKM Discharge Plan Visit Data Chief Complaint: Alcohol Withdrawal Stated Complaint: ALCOHOL WITHDRAWL ED Provider: Prateek Bauer Discharge Problem: Alcohol withdrawal, Acute hypokalemia, Transaminitis Forms Stand Alone Forms: My [facility], Suicide Prevention Resources Prescriptions Prescriptions: No Action losartan 100 mg tablet 100 mg PO DAILY Rx Instructions: PER PT "STOPPED TAKING ABOUT 3 WEEKS AGO". naltrexone 50 mg Tablet 50 mg PO PM Rx Instructions: PER PT "STOPPED TAKING ABOUT 3 WEEKS AGO". escitalopram oxalate 20 mg tablet 20 mg PO DAILY Rx Instructions: PER PT "STOPPED TAKING ABOUT 3 WEEKS AGO". clonidine HCl 0.1 mg tablet 0.1 mg PO TID PRN (Reason: NEEDED) Rx Instructions: PER PT "STOPPED TAKING ABOUT 3 WEEKS AGO". hydroxyzine pamoate 25 mg capsule 25 mg PO BID PRN (Reason: Anxiety) Rx Instructions: PER PT "STOPPED TAKING ABOUT 3 WEEKS AGO". Referrals Referrals: PCP,NO [Primary Care Provider] - Discharge Problem: Alcohol withdrawal Qualifiers: Complication of substance-induced condition: with unspecified complication Q ualified Code(s): F10.939 - Alcohol use, unspecified with withdrawal, unspecified
[2023-05-17] MEDS ORDERED: Ativan PO Alcohol Withdrawal--Active Protocol PO PRN (23:33)
[2023-05-17] MEDS ORDERED: LORazepam 3 MG in SYRINGE 1.5 ML IV PRN (23:33)
[2023-05-17] MEDS ORDERED: LORazepam 1 MG in SYRINGE 0.5 ML IV PRN (23:33)
[2023-05-17] MEDS ORDERED: LORazepam 2 MG in SYRINGE 1 ML IV PRN (23:33)
[2023-05-17] MEDS ORDERED: Ativan IV Alcohol Withdrawal--Active Protocol IV PRN (23:33)
[2023-05-17] MEDS: diazePAM 5 MG/ML 10ML VIAL IV STA (23:56)
--- NOTE | 2023-05-17 23:58 | History & Physical Report ---
Date of Service May 17, 2023 Assessment & Plan (1) Alcohol withdrawal: Plan: Patient interested in alcohol cessation. Actively drinking until noon 05/16, intoxicated on admission but reporting feelings of withdrawal. High likelihood of severe withdrawal symptoms. Did have a 5 month stretch of sobriety after rehab and has been intermittently sober over the years. Unfortunately a large amount of his alcohol use disorder is linked to his mental health. Patient with uncontrolled anxiety/depression. Patient was stable on naltrexone 50 mg, hydroxyzine 25 mg BID, clonidine 0.1 mg TID, lexapro 20 mg and vraylar 1.5 mg. Medication no longer covered by insurance and is prohibitive in cost at about $800 monthly. Would like to talk to the behavioral health team while here. Continue home anxiety/depression meds. AWSS, monitor for signs of withdrawal home clonidine, hydroxyzine PRN continue home Lexapro continue home naltrexone behavioral health consult - appreciate recs consider CM consult for rehab placement Per chart review Patient has previously trialed Zoloft (GI upset), Lexapro 20 mg, venlafaxine 150 mg. Was stable on naltrexone 50 mg, hydroxyzine 25 mg BID, clonidine 0.1 mg TID, lexapro 20 mg and vraylar 1.5 mg for about a year. Vraylar no longer covered by insurance and is prohibitive in cost at about $800 monthly. Likely a large component of his difficulty in alcohol cessation is his uncontrolled mood symptoms. (2) Alcoholic intoxication: Plan: See above (3) Alcoholism with alcohol dependence: Plan: See above (4) Depression: Plan: See above (5) HTN (hypertension): Plan: Continue home losartan. Plan Code status: full DVT ppx: SCDs FENGI: heart healthy Dispo: PCU/tele History of Present Illness Chief Complaint: alcohol withdrawal Primary Care Provider: Dr. Grier 42 y/o male presented in alcohol withdrawal. Last drink around noon. Patient drinking about a fifth daily of whiskey. Patient has been drinking heavily for the lasts 7 days. Does report feeling withdrawal symptoms shortly after stopping drinking. Has had intermittent periods of sobriety. Most recent was a few weeks ago. Longest stretch 5 months. Patient self medicates with alcohol as his anxiety/depression are uncontrolled. Patient did find a medication that worked well for him, but the cost was prohibitive at about $800 for a thirty day supply. Easier to maintain sobriety when his mood symptoms are better controlled. Patient now on hydroxyzine 25 mg BID as needed, clonidine 0.1 TID as needed, and Lexapro 20 mg for mood. Patient on naltrexone 50 mg, uncertain if this is helping. Patient does follow with [facility]. Reviewed records. Documentation states that patient is on 1.5 mg cariprazine (Vrylar) daily. Patient unable to afford this medication and thus is not taking it. In the ED patient was cooperative and pleasant. Does report feeling guilty about his inability to maintain his sobriety. Patient reports anxiety as well. Would like to talk to the behavioral health team while inpatient. Patient denies any fevers, chills, CP, SOB, nausea, change in bowel habits. Did have an episode of emesis after chugging quite a bit of water, no other vomiting. Patient was started on AWSS protocol, vitamin repletion, and given a one time dose of diazepam 5 mg. Uncertain if this is helping. Allergies Allergy/AdvReac Type Severity Reaction Status Date / Time No Known Allergies Allergy Verified 05/17/23 23:20 Home Medications Medication Instructions Recorded Confirmed Type losartan 100 mg tablet 100 mg PO DAILY 07/18/20 05/17/23 History naltrexone 50 mg tablet 50 mg PO PM 07/18/20 05/17/23 History escitalopram oxalate 20 mg tablet 20 mg PO DAILY 09/04/22 05/17/23 History clonidine HCl 0.1 mg tablet 0.1 mg PO TID PRN NEEDED 01/03/23 05/17/23 History hydroxyzine pamoate 25 mg capsule 25 mg PO BID PRN Anxiety 01/03/23 05/17/23 History Past Med/Surg History Medical History GERD (gastroesophageal reflux disease) Alcoholism with alcohol dependence High blood pressure TIA (transient ischemic attack) Surgical History No pertinent past surgical history Family History Other Family history non-contributory Social History Smoking Status: Current every day smoker Tobacco Type: Cigarettes Cigarettes Per Day: 5-6; Second Hand Exposure: No; Do You Dip or Chew Tobacco: No; Hx Alcohol Use: Yes Alcohol type: hard liquor Hx Substance Use: No Preferred Language: Emirati Communication Ability: Effective 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 Beliefs That Will Affect Care: None Current Living Situation: Spouse Feels Safe at Home: Yes Assistive Devices: None Review of Systems 2 Review of Systems: See HPI Physical Exam 2 Physical Exam: Gen: well appearing male patient in NAD HEENT: AT NC MMM Resp: CTAB no wheezing no increased work of breathing CV: RRR no m/r/g clinically well perfused 2+ peripheral pulses Abd: soft, non-tender, non-distended +BS MSK: no obvious deformities Skin: no rashes or bruising Neuro: alert and oriented Psych: appropriate mood and affect, appears anxious, coherent thought and fluent speech, expresses guilt, becomes tearful Results & Data Results & Data Vital Signs (Past 12 Hours) Vital Signs Temp Pulse Pulse Resp BP BP Pulse Ox 05/17/23 23:54 70 15 137/83 91 05/17/23 22:12 36.6 C 94 H 18 136/86 95 O2 Del Method 05/17/23 23:54 Room Air 05/17/23 22:12 Room Air Laboratory Results 05/17/23 22:30 05/17/23 22:30 Supervising Physician Co-Signing Physician Notes Patient seen and examined, chart reviewed, case discussed with Dr. Diaz and I agree with the assessment plan as noted above. in brief, patient is a 42-year-old male with history of alcohol abuse. He has been drinking heavily for the last week, approximately 1/5 of whiskey daily (17 drinks per day). His last drink was today around noon. On physical exam patient is resting comfortably in bed, no acute distress. Easily arousable, answering questions appropriately Skinwarm, dry, intact no rash HEENTmoist mucous membranes, neck supple Heart + S1, S2 regular, no murmur/rub/gallops Lungsequal air entry bilaterally with no rales/rhonchi/wheezes Abdomenobese, soft, nontender/nondistended no ascites Labs and images reviewed. Significant for WBC = 11.64 with neutrophil predominance K = 3.4, creatinine = 1.44 mild elevation of AST = 52, ALT = 73 EtOH elevated at 184 Assessment/[id number] male with history of alcohol presenting with alcohol withdrawal. Will admit to monitored unit for alcohol detox AWSS per protocol Continue home medicationsclonidine, hydroxyzine and naltrexone Remainder of plan as above Resident Activity Tracking Resident Involvement: Resident Care Provided Care Provided: Adult [facility] (4) Depression Depression Type: unspecified Qualified Code(s): F32.9 - Major depressive disorder, single episode, unspecified
[2023-05-18] MEDS: MULTI-VITAMIN INFUSION 10 ML, THIAMINE HCL 100 MG, FOLIC ACID 1 MG in SODIUM CHLORIDE 0... IV ONE (01:13)
[2023-05-18] MEDS ORDERED: hydrOXYzine HCl 25 MG TAB PO PRN (01:30)
[2023-05-18] MEDS ORDERED: ACETAMINOPHEN 325 MG TAB PO PRN (01:30)
[2023-05-18] MEDS ORDERED: POLYETHYLENE (MIRALAX) 17 GM PACK PO PRN (01:30)
[2023-05-18] MEDS ORDERED: cloNIDine HCL 0.1 MG TAB PO PRN (01:30)
--- NOTE | 2023-05-18 02:34 | Billing Data ---
Date of Service May 17, 2023 Coding Level of Care Code 32218 INT INP/OBS CARE
[2023-05-18] MEDS: ONDANSETRON INJ 2 MG/ML 2 ML VIAL IV PRN (03:47)
[2023-05-18 04:42] LABS: Hematocrit (blood only) 45.4 % (42.0-52.0); Hemoglobin 15.7 g/dl (14.0-18.0); Mean Corpuscular Hemoglobin 31.5 pg (25.0-34.0); Mean Corpuscular Hgb Conc 34.6 g/dL (32.0-36.0); Mean Platelet Volume 10.7 fL (9.4-12.4); Platelet Count 201 K/uL (130-400); RDW Coefficient of Variation 13.1 % (11.5-14.5); RDW Standard Deviation 43.6 fL (36.4-46.3); Red Blood Count 4.99 M/uL (4.70-6.10); White Blood Count 10.92 K/ul (4.8-10.8)
[2023-05-18 04:58] LABS: Albumin Globulin Ratio 1.5 (0.9-2); Albumin Level 4.1 gm/dl (3.4-5.0); BUN Creatinine Ratio 19.6 (10-20); Bilirubin,Total 0.8 mg/dl (0.2-1.0); Calcium 8.4 mg/dl (8.6-10.3); Creatinine Clr Calc Pharmacy 105.7 ml/min; Est GFR (African American) 103.1 ml/min; Globulin 2.7 gm/dl (2.5-4.0); Magnesium 1.8 mg/dl (1.7-2.4); Potassium 3.8 mmol/L (3.5-5.1); Total Protein 6.8 gm/dl (6.0-8.3)
--- NOTE | 2023-05-18 06:53 | Hospitalist Progress Note ---
Date of Service May 18, 2023 Assessment & Plan (1) Alcohol withdrawal: Plan: In sum, Alexandru is a 42 year old M presenting with alcohol cessation and alcohol withdrawal. He was actively drinking until around noon on 05/17/23. He has a high likelihood of having severe withdrawl symptoms. On top of this, he recently lost coverage of his Vrylar medication, which has influenced this latest session of drinking. #alcohol withdrawal - last drink was 05/17/23 at noon - monitor for withdrawal symptoms and treat as needed with diazepam #depression - was previously on a regimen of naltrexone 50 mg, hydroxyzine 25 mg bid, clonidine 0.1 tid, lexapro 20 mg, and vrylar 1.5 mg, but no longer has coverage for vrylar - continue clonidine and hydroxyzine prn, continue lexapro and naltrexone - consult psychiatry #anxiety - see depression #hypertension - has hx of HT - continue losartan 100 mg Plan Code status: full DVT ppx: SCDs FENGI: heart healthy Dispo: PCU/tele Admission and Anticipated Discharge Date Admission Date: May 18, 2023 Supervising Physician Co-Signing Physician Notes I personally examined the patient and verified all keane points of history and exam, discussed case, and agree with decision making with Dr Dunlap and M Allen MS2 Feeling good overall and would very much like to go home. Does not feel any shakiness, sweats, or tachycardia. Feels that his anxiety is largely just from being still in the hospital whenever he feels like he would be okay at home. Is going to follow-up with [facility], continue to follow-up with counseling. We discussed multiple self-management strategies encompassing both active stress management and quiet meditative stress management, and discussed evidence of its benefit both statistical and anecdotal. Vitals noted, in general he is awake and alert pleasant no distress. HEENT normocephalic atraumatic mucous membranes moist. Breathing unlabored no accessory muscle use good effort. Skin shows no rashes no pallor or icterus. He is not diaphoretic. His heart rate is 81 on the monitor while we are talking. He is not tremulous. His mental status is intact. Alcohol abuse/withdrawalfortunately appears to be doing extremely well. He would very much like to go home. We discussed that there is certainly still a window of time where withdrawal could ensue, but given how good he is looking at this point, it is not likely to be bad, and his desire to go home does not appear to be reckless or cavalier. Safe for home, with the caveat that he should return if he has any onset of withdrawal symptoms. He agrees. Depression/anxietyfollow-up with his outpatient psychiatric provider, discussed active and quite meditative stress management techniques to give him tools to work on that he can control. Safe/stable for home. Otherwise as above. Subjective CC: alcohol cessation HPI: Alexandru is a 42 year old M with history of mental illness presenting with alcohol withdrawal and desire for alcohol cessation. He arrived in the ED yesterday and his last drink was at noon on 05/17/23. He was given a one time dose of diazepam 5 mg, vitamin repletion, and admitted to our service. This AM, he is tired and anxious. He feels dizzy when standing too fast, a little disoriented, and sluggish. He also has numbness in his lower extremities that has been there for years. He denies chest pain, shortness of breath, and edema. He reports that he was on a good regimen of escitalopram (Lexapro) and cariprazine (Vrylar) until about a week ago, when he found out that his insurance could no longer cover his Vrylar. This is when he started drinking again. Boredom is a trigger for him. When he is drinking, he usually has fifth of whiskey (12 drinks). He sees [facility] for care and has a [facility] counselor. He is currently not seeing a psychiatrist. Last month, he went 20 days without drinking. He has tried to quit drinking multiple times before and been in rehabilitation programs without long-lasting success. 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 He requests that his coworkers not be allowed to visit him in the hospital during his stay. Review of Systems Review of Systems: As per HPI Physical Exam Physical Exam: General: A&O, fatigued Respiratory: Cardiology: Psych: mood and affect appropriate, appears anxious Results & Data Results & Data Vital Signs (Past 12 Hours) Vital Signs Temp Pulse Pulse Resp BP BP Pulse Ox 05/18/23 06:16 37.0 C 64 20 154/88 H 92 05/18/23 04:36 74 20 143/86 H 96 05/18/23 04:20 89 05/18/23 01:30 83 17 149/91 H 94 05/18/23 01:30 05/18/23 01:29 75 20 158/93 H 92 05/18/23 00:27 70 05/17/23 23:54 70 15 137/83 91 05/17/23 22:12 36.6 C 94 H 18 136/86 95 Pulse Ox O2 Del Method O2 Del Method 05/18/23 06:16 Room Air 05/18/23 04:36 Room Air 05/18/23 04:20 05/18/23 01:30 Room Air 05/18/23 01:30 94 Room Air 05/18/23 01:29 Room Air 05/18/23 00:27 05/17/23 23:54 Room Air 05/17/23 22:12 Room Air Laboratory Results 05/18/23 05/17/23 03:52 22:30 WBC 10.92 H 11.64 H RBC 4.99 5.68 Hgb 15.7 17.8 Hct 45.4 51.9 MCV 91.0 91.4 MCH 31.5 31.3 MCHC 34.6 34.3 RDW Std Deviation 43.6 44.0 RDW Coeff of Donnie 13.1 13.1 Plt Count 201 247 MPV 10.7 10.2 Immature Gran % (Auto) 0.3 Neut % (Auto) 74.1 Lymph % (Auto) 15.5 [place] % (Auto) 9.6 Eos % (Auto) 0.3 Baso % (Auto) 0.2 Neut # (Auto) 8.63 H Lymph # (Auto) 1.80 [place] # (Auto) 1.12 H Eos # (Auto) 0.03 Baso # (Auto) 0.02 Immature Gran # (Auto) 0.04 PT 10.8 INR 1.0 APTT 25 PTT Ratio 0.9 Sodium 138 139 Potassium 3.8 3.4 L Chloride 103 100 Carbon Dioxide 23 28 Anion Gap 12 H 11 BUN 20 22 Creatinine 1.02 D 1.44 H Est Cr Clr Drug Dosing 105.7 74.9 Est GFR ( Amer) 103.1 68.0 Est GFR (Non-Af Amer) 89.0 58.6 BUN/Creatinine Ratio 19.6 15.3 Glucose 84 156 H Calcium 8.4 L 9.2 Phosphorus 3.0 Magnesium 1.8 Total Bilirubin 0.8 0.5 AST 36 52 H ALT 55 H 73 H Alkaline Phosphatase 71 83 Total Protein 6.8 8.1 Albumin 4.1 4.8 Globulin 2.7 3.3 Albumin/Globulin Ratio 1.5 1.5 Ethyl Alcohol mg/dL 184.0 H
[2023-05-18] MEDS: ESCITALOPRAM OXALATE 20 MG TAB PO SCH (08:36)
[2023-05-18] MEDS: FOLIC ACID 1 MG in SYRINGE 9.8 ML IV SCH (08:36)
[2023-05-18] MEDS: MULTIVITAMIN TAB PO SCH (08:37)
[2023-05-18] MEDS: LOSARTAN POTASSIUM 50 MG TAB PO SCH (08:37)
[2023-05-18] MEDS: THIAMINE HCL 200 MG in SODIUM CHLORIDE 0.9% 50 ML IV SCH (09:15)
--- OUTSIDE RECORDS SUMMARY | 2023-05-18 13:22 | External Medical Summary | Continuity of Care Document ---
Author Name Unknown Organization [address] Address [address] [place] [address] [phone] Care Team Providers Care Paraprofessional Aide Teacher Name Role Phone Bettie Mohr Primary [facility] P hysiciluis manuel [phone] Encounter [facility] [phone] Date(s): 04/18/23 - 04/18/[address], [address] [address] [place] [phone] Encounter Diagnosis Body mass index [BMI] 35.0-35.9, adult(Discharge Diagnosis) - 04/18/23 Alcohol use disorder(Discharge Diagnosis) - 04/18/23 Anxiety(Discharge Diagnosis) - 04/18/23 Alcohol use disorder, severe, in early remission(Discharge Diagnosis) - 04/18/23 Establishing care with new doctor, encounter for(Discharge Diagnosis) - 04/18/23 Diabetes mellitus screening(Discharge Diagnosis) - 04/18/23 Lipid screening(Discharge Diagnosis) - 04/18/23 Colon cancer screening(Discharge Diagnosis) - 04/18/23 Bipolar illness(Discharge Diagnosis) - 04/18/23 Hypertension(Discharge Diagnosis) - 04/18/23 Cigarette smoker(Discharge Diagnosis) - 04/18/23 Discharge Disposition: Home or Self Care Attending Physician: Marvel Jones DO, Mariana Annette Allergies, Adverse Reactions, Alerts No Known Allergies Assessment and Plan Extracted from: Title:Office Visit Note Author:Marvel Jones DO, Mariana Annette Date:04/18/23 1.Establishing care with n ew doctor, encounter for 2.Alcohol use disorder, severe, in early remission STATUS:Chronic stable. DATA:Labs and hospital notesreviewed. GOAL:Maintain stability. PLAN:naltrexone refilled, discussed continued AA meetings and counseling. . 3.Anxiety 4.Bipolar illness STATUS:Chronic stable. DATA:Labs reviewed. GOAL:Maintain stability. PLAN:Cont current monitoring per psychiatry . 5.Cigarette smoker Discussed smoking cessation pt has nicotine lozenges at home to try 6.Hypertension STATUS:Chronic stable. DATA:Labs reviewed. GOAL:Maintain stability. PLAN:Cont current meds 7.Diabetes mellitus screening CHeck fasting glucose 8.Lipid screening check lipid panel 9.Colon cancer screening colonoscopy ordered Immunizations Given and Recorded Vaccine Date Status Refusal Reason tetanus/diphtheria/pertuss, acel (Tdap) 12/18/18 R ecorded tetanus toxoids-diphtheria, Td (Adult) 02/19/05 Re corded measles/mumps/rubella virus vaccine 03/01/95 Recor ded measles/mumps/rubella virus vaccine 09/05/79 Recor ded diphtheria-tetanus toxoids, DT (Ped) 05/05/94 Darius rded diphtheria/tetanus/pertuss, acel (DTaP) 10/11/83 R ecorded diphtheria/tetanus/pertuss, acel (DTaP) 12/22/79 R ecorded diphtheria/tetanus/pertuss, acel (DTaP) 02/17/79 R ecorded diphtheria/tetanus/pertuss, acel (DTaP) 78 R ecorded diphtheria/tetanus/pertuss, acel (DTaP) 78 R ecorded poliovirus vaccine, inactivated 10/11/83 Recorded poliovirus vaccine, inactivated 02/17/79 Recorded poliovirus vaccine, inactivated 78 Recorded poliovirus vaccine, inactivated 78 Recorded Medications cloNIDine 0.1 mg oral tablet Start: 07/29/21 12:59:00 EDT, 1 tab, PO, Daily, PRN Start Date: 07/29/21 Status: Ordered folic acid Start: 11/03/20 11:57:00 EDT, 1 mg =, Daily Start Date: 11/03/20 Status: Ordered hydrOXYzine pamoate 50 mg oral capsule Start: 03/08/22 14:37:00 EST, 1 cap, PO, ONCE, PRN: as needed for anxiety Start Date: 03/08/22 Status: Ordered Lexapro 20 mg oral tablet Start: 04/18/23 13:38:00 EST, 1 tab, PO, Daily Start Date: 04/18/23 Status: Ordered losartan 100 mg oral tablet Start: 04/07/23 9:54:00 EST, 1 tab, PO, Daily, Disp# 30 tab, Refills: 11, Pharmacy: [facility] Start Date: 04/07/23 Status: Ordered multivitamin Start: 11/03/20 11:57:00 EDT, 1 tab, PO, Daily Start Date: 11/03/20 Status: Ordered naltrexone 50 mg oral tablet Start: 04/18/23 14:08:00 EST, 1 tab, PO, Daily, Disp# 90 tab, Refills: 3, Pharmacy: [facility] Start Date: 04/18/23 Status: Ordered thiamine 100 mg oral tablet Start: 04/18/23 14:08:00 EST, 100 mg =, PO, Daily, Disp# 90 tab, Refills: 3, Pharmacy: [facility] Start Date: 04/18/23 Status: Ordered Vraylar 1.5 mg oral capsule Start: 04/18/23 13:38:00 EST, 1 cap, PO, Daily Start Date: 04/18/23 Status: Ordered Mental Status 04/18/23 Barriers to Learning one year None evide nt Mandatory Health Literacy Documentation Yes Health Literacy Communication Barriers N ever Primary Language Swedish Problem List Condition Confirmation Course Effective Dates Status Health St atus Informant Alcohol use disorder, severe, in early remission Confirmed Active Anxiety Confirmed Active Bipolar illness Confirmed Active Bradycardia Confirmed Active Cigarette smoker Confirmed Active Depression Confirmed Active Hypertension Confirmed Active Weight disorder Confirmed Active Diagnosis Diagnosis Type Effective Dates Health Status Clinical Service Informant Body mass index [BMI] 35.0-35.9, adult Discharge Diagnosis 04/18/23 Non-Specified Anxiety Discharge Diagnosis 04/18/23 Colon cancer screening Discharge Diagnosis 04/18/23 Non-Specified Diabetes mellitus screening Discharge Diagnosis 04/18/23 Non-Specified Lipid screening Discharge Diagnosis 04/18/23 Non-Specified Alcohol use disorder, severe, in early remission Discharge Diagnosis 04/18/23 Cigarette smoker Discharge Diagnosis 04/18/23 Hypertension Discharge Diagnosis 04/18/23 Alcohol use disorder Discharge Diagnosis 04/18/23 Non-Specified Bipolar illness Discharge Diagnosis 04/18/23 Establishing care with new doctor, encounter for Discharge Diagnosis 04/18/23 Procedures Procedure Date Related Diagnosis Body Site Status CT of head 1 09/04/22 Completed X-ray of chest and abdomen 2 02/17/[address] of abdominal organs, kidn ey, ureter and bladder without contrast 3 07/27/19 C ompleted Chest x-ray 4 11/28/18 Completed Cardiac monitoring 5 11/01/17 Comp leted Chest X-ray 6 09/28/16 Completed X-ray of left ankle 7 06/20/15 Com pleted MRI of brain 8 02/19/15 Completed MRI of brain 9 07/24/[address] of head 10 07/23/14 Completed Electrocardiogram 11 05/08/14 Comp leted Cardiac monitoring 12, 13 04/19/14 Completed Cardiac monitoring 14 03/25/14 Com pleted Stress echocardiography test interpretation 15 03/06/[address] of abdomen and pelvis 16 02/01/14 Completed MRI of brain 17 06/18/[address] of brain 18 06/17/[address] of brain 19 06/16/[address] of cervical spine 20 06/16/13 C ompleted Chest X-ray 21 05/06/[address] of chest 22 07/27/09 Completed Cardiac catheterisation 23 05/26/06 Completed Stress echocardiography test interpretation 24 02/08/06 Completed Holter monitor 25 01/24/06 Complet ed 1Impression: 1. No acute intracranial process. 2. Patchy cerebral white matter hypodensities are similar to prior exam, nonspecific, most commonlyseen in the setting of chronic small vessel ischemic disease. 2Impression: 1. No acute processes of the chest. 2. Nonobstructive bowel gas pattern. 3Unremarkable sonographic assessment of the right upper quadrant. No shadowing gallstones are identified. 4No acute process 5See scanned results 6Impression: Negative chest 7Impression: negative study 8Impression: 1. No change compaired to prior study. No acute intracranial mass. 2. Scattered T2 hyperintense foci within the white matter are again noted. The differential diagnosis includes a demyelinating disease, lyme's disease, vasculitis, migraine headaches, or less likely small vessel ischemic disease 9impression 1. No acute intracranial findings 2. Slight progression of numerous small subcortical white matter T2 hyperintense foci since exam 06/18/2013. The findings are nonspecific. Differential consideration include a demyelinating disease (althogh the appearance is not typical of multiple sclerosis), remote Lyme's disease, a vasculitis or the sequela of migrain headaches. Small vessel ischemic disease could appear similar, but is greaterthan expected for age. 3. No intracranial masses or areas of pathologic enhancments 10Impression: 1. No acute intracranial findings 2. No Significant change in several subcortical white matter hypodensities since prior exams 11Sinus rhythm at 60 bpm. It is a normal electrocardiogram. 12see scanned report 13Sinus rhythm throughout with a minimum heart rate of 45, a maximum 120 and an average of 67 bpm. Nosignificant abnormalities. 14see scanned report 15Interpretation: -Negative for ischemia at 88% MPHR - Negative ECG for ishemia at 88% MPHR - The patient complained of no exercise induced chest pain - There wher no ECG change - Normal BP responce to exercise - There was no sirnificant ectopy at rest and with exercise - The baseline echocardiogram notes normal left ventricular function - There is no significant valvular pathology 16impression: 1. No bowel wall thickening or obstruction 2. Normal appendix 3 Tiny fat containing left inguinal hernia 17Impression 1. Multiple foci of increased signal scattered throughout both cerebral hemispheres 2. Differential considerations must include demyelinating disorder, verus the possibility of vasculitis type process 3. Patient with history of chronic headaches and or headache type process may also present in a similar fashion 4. No evidence for an acute ischemic insult, with the study also negative for abnormal postcontrastenhancement 18Impression 1. No CT evidence of acute intracranial; hemorrhage, mass effect or midline shift 2. Subtle frontal lobe white matter hypodensities are unchanged from prior exams, There is also subttle encephalomalacia in the left lateral frontal cortex, suggesting these findings may be the sequelas or remote trauma 19Impression 1. No acute displaced calvarial fracture or significant paranasal sinus opacification identified 2. No acute intracranial hemorrhage, midline shift or mass effect 3. Very subtle areas of low-attenuation in periventrcular white matter, that in retrospect appear similar as on the prior exam from 07/27/2009 20Impression: 1. No acute fracture or subluxation identified in the cerical spine. 2> Minimal degenerative disc disease at C6-C7 with early calcification of the anterior annulus fibrosis 21Impression: Borderline cardiomegaly. No acute focal infiltrates 22impression Chest: No traumatic thoracic findings 23history of see scanned report 24Interpretation 1. No chest pain 2. functional capacity of 10mets 3. No cardiac arthythmias 4. Test was terminated due to very high BP 6. Negative exercise test 25Impression: 1 synus rhythm throughout 2 Rare/noncomplex ectopy 3. No pauses 4. Symptom of chest discomfort during sinus rhythm without ectopy Vital Signs Most recent to oldest [Reference Range]: 1 Height 173.5 cm (04/18/23 1:41 PM) Patient Weight 108.3 kg (04/18/23 1:41 PM) Body Mass Index 35.98 kg/m2 (04/18/23 1:41 PM) Temperature [36.5-37.9 DegC] 36.4 DegC *LOW* (04/18/23 1:41 PM) Blood Pressure 130/80mmHg (04/18/23 1:41 PM) Cuff Pulse Pressure 50 mmHg (04/18/23 1:41 PM) Social History Social History Type Response Tobacco Current every day sm oker, Cigarettes, 10 per day. Smoking Status Current every day cleo sukumar smoker Sex Male [facility]CM Outpt Note * Marvel Jones DO, Mariana Annette: PERFORM Event Display: [facility] Outpt Note Authored Date: Chief Complaint New to establish with [facility]. Cough resolving, recent sinus inf. Declines flu inj. History of Present Illness Patient presents to establish care. PMH: alcohol use disorder, bipolar disorder, anxiety, tobacco use, HTN, palpitations PSH: heart cath ~12 yrs ago FH: father- passed from [place] at age 43. 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 Grew up in foster care.Smokes1/3-1/2 PPD, alcohol use described below. No drug use. Alcohol use disorder - has had numerous ED visits/hospitalizations for alcohol intoxication and alcohol withdrawal. Mostrecently admitted2 weeks agofor alcohol withdrawal. - last drink was 8 days ago. 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 Tobacco use - working on quitting, smoking 1 pack per 3 days. HTN - home measurements: 130s/70s. - on losartan 100mg w.o side effects - states he used to be on 3 different meds Palpitations - states clonidine helps with this Health Maintenance: - Colon CA screening: has ever had. - Hep C screening: done at rehab, negative. - Immunizations: - Influenza: declines - COVID:declines - Tdap: 2019 Physical Exam Vitals & Measurements T:36.4C BP:130/80 SpO2:97% HT:173.5cm WT:108.3kg WT:108.300kg(Dosing) BMI:35.98 PHQ2 Data(Data Documented on:04/18/2023 13:39) Emotional health assessment NEGATIVE General: _Alert and oriented, No acute distress Cardiovascular: _Normal rate, Regular rhythm, No murmur, No gallop. Respiratory: _Lungs are clear to auscultation, Respirations are non-labored, Breath sounds are equal Psych: Mood-affect congruence. Reports no SI/HI. Speech is of normal pace and content Neck: no cervical lymphadenopathy, no thyromegaly, thyroid tendernessor thyroid masses. Assessment/Plan 1.Establishing care with new doctor, encounter for 2.Alcohol use disorder, severe, in early remission STATUS:Chronic stable. DATA:Labs and hospital notesreviewed. GOAL:Maintain stability. PLAN:naltrexone refilled, discussed continued AA meetings and counseling. . 3.Anxiety 4.Bipolar illness STATUS:Chronic stable. DATA:Labs reviewed. GOAL:Maintain stability. PLAN:Cont current monitoring per psychiatry . 5.Cigarette smoker Discussed smoking cessation pt has nicotine lozenges at home to try 6.Hypertension STATUS:Chronic stable. DATA:Labs reviewed. GOAL:Maintain stability. PLAN:Cont current meds 7.Diabetes mellitus screening CHeck fasting glucose 8.Lipid screening check lipid panel 9.Colon cancer screening colonoscopy ordered Attestation Time spent: Pre-visit planning: _10 [id number] visit: _40 Post-visit (orders/documentation/coordination of care):15 Total visit time: 65 Problem List/Past Medical History Ongoing Alcohol use disorder, severe, in early remission Anxiety Bipolar illness Bradycardia Cigarette smoker Depression Hypertension Weight disorder Historical Conjunctivitis Otitis media of right ear Redness of right eye Procedure/Surgical History CT of head (09/04/2022)X-ray of chest and abdomen (02/17/2022)CT of abdominal organs, kidney, ureter and bladder without contrast (07/27/2019)Chest x-ray (11/28/2018)Cardiac monitoring(11/01/2017)Chest X-ray (09/28/2016)X-ray of left ankle (06/20/2015)MRI of brain ( 5)MRI of brain (07/24/2014)CT of head (07/23/2014)Electrocardiogram (05/08/2014)Cardiacmonitoring (04/19/2014)Cardiac monitoring (03/25/2014)Stress echocardiography test interpretation (03/06/2014)CT of abdomen and pelvis (02/01/2014)MRI of brain (06/18/2013)CT of brain ( 06/17/2013)CT of brain (06/16/2013)CT of cervical spine (06/16/2013)Chest X-ray (05/06/2011)CT of chest (07/27/2009)Cardiac catheterisation (05/26/2006)Stress echocardiography test interpretation (02/08/2006)Holter monitor (01/24/2006) Medications cariprazine(Vraylar 1.5 mg oral capsule), 1.5 mg= 1 cap, PO, Daily cloNIDine(cloNIDine 0.1 mg oral tablet), 0.1 mg= 1 tab, PO, Daily escitalopram(Lexapro 20 mg oral tablet), 20 mg= 1 tab, PO, Daily folic acid, 1 mg, Daily hydrOXYzine(hydrOXYzine pamoate 50 mg oral capsule), 50 mg= 1 cap, PO, ONCE, PRN losartan(losartan 100 mg oral tablet), 100 mg= 1 tab, PO, Daily, 11 refills multivitamin, 1 tab, PO, Daily naltrexone(naltrexone 50 mg oral tablet), 50 mg= 1 tab, PO, Daily, 3 refills thiamine(thiamine 100 mg oral tablet), 100 mg, PO, Daily, 3 refills Allergies NKA Social History Smoking Status Current every day light smoker Alcohol Use:Past Frequency:Several times per day Previous treatment:Alcoholics Anonymous, Inpatient, Outpatient Has alcohol use interfered with work or home life:Yes Do you ever drink more than intended:Yes Has anyone been hurt or at risk by your drinking:No Ready to change:Yes Employment/School 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 Health Status Family Member(s) Immunizations Vaccine Date Status tetanus/diphtheria/pertuss, acel (Tdap) 12/18/2018 Recorded tetanus toxoids-diphtheria, Td (Adult) 02/19/2005 Recorded measles/mumps/rubella virus vaccine 03/01/1995 Recorded diphtheria-tetanus toxoids, DT (Ped) 05/05/1994 Recorded diphtheria/tetanus/pertuss, acel (DTaP) 10/11/1983 Recorded poliovirus vaccine, inactivated 10/11/1983 Recorded diphtheria/tetanus/pertuss, acel (DTaP) 12/22/1979 Recorded measles/mumps/rubella virus vaccine 09/1979 Recorded diphtheria/tetanus/pertuss, acel (DTaP) 02/17/1979 Recorded poliovirus vaccine, inactivated 02/17/1979 Recorded diphtheria/tetanus/pertuss, acel (DTaP) 1978 Recorded poliovirus vaccine, inactivated 1978 Recorded diphtheria/tetanus/pertuss, acel (DTaP) 1978 Recorded poliovirus vaccine, inactivated 1978 Recorded Recommendations Health Maintenance Pending(in the next year) OverDue Adult Influenza Vaccine due09/03/22and every 1year Due Adult COVID-19 Vaccination due04/18/23Unknown Frequency Adult Social Determinants of Health Screening due04/18/23Unknown Frequency Hepatitis C Screening due04/18/23One-time only Pneumococcal Vaccine Adults and Adolescents with Chronic Illness due04/18/23One-time only Satisfied(in the past 1 year) Satisfied Body Mass Index on04/18/23.Satisfied by HENOK Rodriguez Lori Electronic Signature on File Electronically Reviewed/Signed by: Bettie Jones DO Author Signature Dt/Tm:04/18/2023 05:11 PM Department of Family Medicine [facility] Patient Care team information Care Team Personnel Name: Marvel Jones DO, Mariana Annette Position: Physician - Family Med Member Role: Primary Care Provider Address: Address: [address] [place] [address], [place] [address] Care Team Related Persons Name: EM JACKSON Address: home [address] [place], [place] [id number] Name: EM JACKSON Address: home [address] [place], [place] [id number]
--- NOTE | 2023-05-18 14:20 | Discharge Summary ---
Date of Service May 18, 2023 Admission HPI Per Admitting Provider 42 y/o male presented in alcohol withdrawal. Last drink around noon. Patient drinking about a fifth daily of whiskey. Patient has been drinking heavily for the lasts 7 days. Does report feeling withdrawal symptoms shortly after stopping drinking. Has had intermittent periods of sobriety. Most recent was a few weeks ago. Longest stretch 5 months. Patient self medicates with alcohol as his anxiety/depression are uncontrolled. Patient did find a medication that worked well for him, but the cost was prohibitive at about $800 for a thirty day supply. Easier to maintain sobriety when his mood symptoms are better controlled. Patient now on hydroxyzine 25 mg BID as needed, clonidine 0.1 TID as needed, and Lexapro 20 mg for mood. Patient on naltrexone 50 mg, uncertain if this is helping. Patient does follow with [facility]. Reviewed records. Documentation states that patient is on 1.5 mg cariprazine (Vrylar) daily. Patient unable to afford this medication and thus is not taking it. In the ED patient was cooperative and pleasant. Does report feeling guilty about his inability to maintain his sobriety. Patient reports anxiety as well. Would like to talk to the behavioral health team while inpatient. Patient denies any fevers, chills, CP, SOB, nausea, change in bowel habits. Did have an episode of emesis after chugging quite a bit of water, no other vomiting. Patient was started on AWSS protocol, vitamin repletion, and given a one time dose of diazepam 5 mg. Uncertain if this is helping. Admission Exam Per Admitting Provider Gen: well appearing male patient in NAD HEENT: AT NC MMM Resp: CTAB no wheezing no increased work of breathing CV: RRR no m/r/g clinically well perfused 2+ peripheral pulses Abd: soft, non-tender, non-distended +BS MSK: no obvious deformities Skin: no rashes or bruising Neuro: alert and oriented Psych: appropriate mood and affect, appears anxious, coherent thought and fluent speech, expresses guilt, becomes tearful Principal Diagnosis alcohol withdrawal Discharge Exam Constitutional: well appearing, no acute distress HEENT: normocephalic, no conjunctival injection CV: regular rhythm, regular rate, no murmur, no LE edema Respiratory: Clear to auscultation bilaterally. No rhonchi, wheezes, or crackles. No increased work of breathing MSK: no gross deformities noted Skin: warm, dry, no rashes Neuro: alert, oriented, no FND noted Discharge Data Allergies Allergy/AdvReac Type Severity Reaction Status Date / Time No Known Allergies Allergy Verified 05/17/23 23:20 Consultations 05/17/23 23:34 ED Decision to Admit Stat 05/18/23 11:09 Consult Behavioral Health Liaison Routine Hospital Course (1) Alcohol withdrawal: Pt is a 42 year old male presenting with want for alcohol cessation and acute alcohol withdrawal. He was actively drinking until around noon on 05/17/23. Acute alcohol withdrawal in the setting of alcohol use disorder - last drink was 05/17/23 at noon; required diazepam 5 mg in ER but then no further benzos - no signs/symptoms of alcohol withdrawal; no hx of seizures or DTs - encouraged pt to continue home medications including naltrexone 50 mg daily Depression/anxiety - was previously on a regimen of naltrexone 50 mg, hydroxyzine 25 mg bid, clonidine 0.1 tid, lexapro 20 mg, and vrylar 1.5 mg, but no longer has coverage for vrylar - this episode of heavy alcohol use seems to correlate with loss of vrylar medication; as this appears to have helped the pt in the past, pt may benefit from a different anti-psychotic (?Abilify) - no medication changes made during this hospital stay - strongly encouraged pt to f/u with [facility] for psych tx - discussed coping mechanisms including exercise, meditation, etc at depth Hypertension - continue losartan 100 mg Code: full DVT ppx: SCDs, low risk FENGI: heart healthy Dispo: home with close f/u with psych and PCP (2) Alcoholism with alcohol dependence: (3) Depression: Total Time Total Time Spent Total Time Spent (In Minutes): as per attending attestation Discharge Plan Discharge Items Patient Disposition: Home - Self-Care Reason For Visit: ALCOHOL WITHDRAWL Discharge Diagnosis: alcohol withdrawal Activity: Per Instructions section Non-emergency contact: Primary Care Provider and Psychiatrist Call non-emergency contact if: you have any medication questions and your symptoms worsen Follow-up/Referrals: Bettie Mohr DO [Outside Practitioners] - PCP,NO [Primary Care Provider] - Diet: Heart Healthy Addtl Attending Provider Instructions: You were admitted to the hospital for alcohol withdrawal. You were treated with medications as needed. You only required 1 dose of diazepam (a benzodiazepine type medication). Otherwise, you exhibited no further signs of withdrawal. A discharge summary will be sent to your primary care physician to ensure continuity of care. Please bring this discharge summary with you to your next office appointment so that your provider can review it at that time. Medications: Your medication list has been reviewed and reconciled upon discharge to ensure accuracy and continuity of care. An updated list of all your medications is included with your hospital discharge paperwork. Please review this list closely and make note of any changes to your medications. - No changes to your home medications Follow up appointments: - Make a follow up appointment with your PCP within the next week. It is very important that you follow up with them shortly after discharge from the hospital. - Please also make a follow up with your psychiatrist at [facility]. You may want to ask them about other medications similar to your previous Vraylar such as Abilify. - Keep all of your follow up appointments as already scheduled. If you cannot make an appointment, notify your provider. CONTACT YOUR PRIMARY CARE PROVIDER if you experience any of the following: - Difficulty following your treatment plan - Difficulty taking any of your medications CALL 911 OR GO TO THE EMERGENCY DEPARTMENT if you experience any of the following: - Increased signs of withdrawal; tremors, fevers, unusual agitation, delirium, etc - Sudden, severe abdominal pain or nausea/vomiting - Severe chest pain or chest pain that radiates to your jaw or arm - Sudden, severe shortness of breath or difficulty breathing Pending Studies at Discharge: No Stand-Alone Forms: My [facility], Smoking Cessation Medications and DC Order Prescriptions: Continued losartan 100 mg tablet 100 mg PO DAILY Rx Instructions: PER PT "STOPPED TAKING ABOUT 3 WEEKS AGO". naltrexone 50 mg Tablet 50 mg PO PM Rx Instructions: PER PT "STOPPED TAKING ABOUT 3 WEEKS AGO". escitalopram oxalate 20 mg tablet 20 mg PO DAILY Rx Instructions: PER PT "STOPPED TAKING ABOUT 3 WEEKS AGO". clonidine HCl 0.1 mg tablet 0.1 mg PO TID PRN (Reason: NEEDED) Rx Instructions: PER PT "STOPPED TAKING ABOUT 3 WEEKS AGO". hydroxyzine pamoate 25 mg capsule 25 mg PO BID PRN (Reason: Anxiety) Rx Instructions: PER PT "STOPPED TAKING ABOUT 3 WEEKS AGO". Discharge Orders: Discharge Order (Routine); Ordered 05/18/23 Ordered By: Neda Anne/Other Patient Handouts: Alcohol Withdrawal: What to Expect Admission Data Admit Date/Time: 05/18/23 00:40 Attending Provider: Stanton Prince Admit Provider: Estephanie Diaz Primary Care Provider: PCP,NO Other Providers: Debbie Still Other Interventions: Discharge Summary Assessment (RN) Last Done: 05/18/23 13:17 Supervising Physician Co-Signing Physician Notes I personally examined the patient and verified all keane points of history and exam, discussed case, and agree with decision making with Dr Dunlap Feeling good overall and would very much like to go home. Does not feel any shakiness, sweats, or tachycardia. Feels that his anxiety is largely just from being still in the hospital whenever he feels like he would be okay at home. Is going to follow-up with [facility], continue to follow-up with counseling. We discussed multiple self-management strategies encompassing both active stress management and quiet meditative stress management, and discussed evidence of its benefit both statistical and anecdotal. Vitals noted, in general he is awake and alert pleasant no distress. HEENT normocephalic atraumatic mucous membranes moist. Breathing unlabored no accessory muscle use good effort. Skin shows no rashes no pallor or icterus. He is not diaphoretic. His heart rate is 81 on the monitor while we are talking. He is not tremulous. His mental status is intact. Alcohol abuse/withdrawalfortunately appears to be doing extremely well. He would very much like to go home. We discussed that there is certainly still a window of time where withdrawal could ensue, but given how good he is looking at this point, it is not likely to be bad, and his desire to go home does not appear to be reckless or cavalier. Safe for home, with the caveat that he should return if he has any onset of withdrawal symptoms. He agrees. Depression/anxietyfollow-up with his outpatient psychiatric provider, discussed active and quite meditative stress management techniques to give him tools to work on that he can control. Safe/stable for home. Otherwise as above. Resident Activity Tracking Resident Involvement: Resident Care Provided Care Provided: [facility]
--- NOTE | 2023-05-18 19:49 | Billing Data ---
Date of Service May 18, 2023 Coding Level of Care Code 33910 IN/OBS DISCH 30 MIN/LESS
[2023-05-18] MEDS ORDERED: NALTREXONE HCL 50 MG TAB PO SCH (21:00)
--- NOTE | 2023-05-19 06:03 | Electrocardiogram Report ---
Test Reason : Blood Pressure : / mmHG Vent. Rate : 089 BPM Atrial Rate : 089 BPM P-R Int : 134 ms QRS Dur : 088 ms QT Int : 386 ms P-R-T Axes : 024 018 006 degrees QTc Int : 469 ms Normal sinus rhythm When compared with ECG of 05-APR-2023 11:38, No significant change Confirmed by David Bhat ([id number]) on 05/19/2023 6:03:14 AM Referred By: REFERRED SELF Confirmed By:David Bhat
== END 2023-05-18 13:15 | disposition home or self-care (01) ==
LOC: ED 22:06 → EDINP 05-18 00:40 → SUATTDRO 05-18 00:40 → INTOOBSV 05-18 00:40 → EDINP 05-18 01:31

== ENCOUNTER 2024-01-29 09:17 | Inpatient (IN) ==
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
[2024-01-29] MEDS: diazePAM 5 MG/ML 10ML VIAL IV STA (09:48)
[2024-01-29] MEDS: SODIUM CHLORIDE 0.9% 1,000 ML IV ONE (09:49)
[2024-01-29 09:56] LABS: Basophils # (auto) 0.01 K/uL (0.00-0.20); Basophils % (auto) 0.2 %; Hematocrit (blood only) 45.9 % (42.0-52.0); Hemoglobin 15.4 g/dl (14.0-18.0); Immature Granulocytes # (auto) 0.03 K/uL (0.01-0.20); Immature Granulocytes % (auto) 0.5 %; Lymphocytes # (auto) 0.55 K/uL (1.20-3.40); Lymphocytes % (auto) 8.3 %; Mean Corpuscular Hemoglobin 30.9 pg (25.0-34.0); Mean Corpuscular Hgb Conc 33.6 g/dL (32.0-36.0); Mean Corpuscular Volume 92.2 fL (80.0-100.0); Mean Platelet Volume 9.6 fL (9.4-12.4); Monocytes # (auto) 0.65 K/uL (0.11-0.59); Monocytes % (auto) 9.8 %; Neutrophils # (auto) 5.37 K/uL (1.40-6.50); Neutrophils % (auto) 81.2 %; Platelet Count 206 K/uL (130-400); Red Blood Count 4.98 M/uL (4.70-6.10); White Blood Count 6.61 K/ul (4.8-10.8)
[2024-01-29 10:12] LABS: Albumin Globulin Ratio 1.4 (0.9-2); Albumin Level 4.3 gm/dl (3.4-5.0); BUN Creatinine Ratio 20.3 (10-20); Bilirubin,Total 0.8 mg/dl (0.2-1.0); Calcium 9.6 mg/dl (8.6-10.3); Creatinine Clr Calc Pharmacy 90.7 ml/min; Potassium 3.7 mmol/L (3.5-5.1); Total Protein 7.3 gm/dl (6.0-8.3)
[2024-01-29 10:43] LABS: Appearance Urine Clear (Clear); Bacteria Urine Automated None Seen (None Seen); Bilirubin Urine Negative (Negative); Blood Urine Negative (Negative); Cast Urine Automated 0-2 /lpf (0-2); Color Urine Yellow; Epithelial Cell Urine Auto 0-2 /hpf (0-2); Glucose Urine UA Negative (Negative); Ketones Urine 2+ (Negative); Leukocyte Esterase Urine Negative (Negative); Nitrite Urine Negative (Negative); Protein Urine Trace (Negative); RBC Urine Automated 0-2 /hpf (0-2); Specific Gravity Urine 1.021 (1.000-1.030); Urobilinogen Urine Negative (Negative); WBC Urine Automated 0-5 /hpf (0-5); pH Urine 5.5 (4.5-7.5)
[2024-01-29 10:58] LABS: Base Excess VBG -6.6 mEq/L; HCO3 VBG 17 mmol/L; Oxygen Saturation VBG 94.2 %; PCO2 VBG 28 mmHg (38-50); PO2 VBG 70 mmHg; pH VBG 7.39 (7.36-7.41)
[2024-01-29] MEDS: THIAMINE HCL 200 MG in SODIUM CHLORIDE 0.9% 50 ML IV STA (11:04)
[2024-01-29] MEDS: FOLIC ACID 1 MG in SYRINGE 9.8 ML IV STA (11:05)
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
[2024-01-29] MEDS ORDERED: Ativan IV Alcohol Withdrawal--Active Protocol IV PRN (11:47)
[2024-01-29] MEDS ORDERED: chlordiazePOXIDE ALCOHOL WITHDRAWL 50MG PO STA (11:47)
[2024-01-29] MEDS ORDERED: LORazepam 2 MG/1 ML VIAL IV PRN ×2 (11:47)
[2024-01-29] MEDS: chlordiazePOXIDE HCl 25 MG CAP PO SCH (12:33)
[2024-01-29] MEDS: LORazepam 2 MG/1 ML VIAL IV PRN (12:54)
[2024-01-29] MEDS ORDERED: ONDANSETRON INJ 2 MG/ML 2 ML VIAL IV PRN (14:27)
[2024-01-29] MEDS ORDERED: cloNIDine HCL 0.1 MG TAB PO PRN ×3 (14:27→18:40)
--- NOTE | 2024-01-29 15:05 | Electrocardiogram Report ---
Test Reason : Blood Pressure : */* mmHG Vent. Rate : 83 BPM Atrial Rate : 83 BPM P-R Int : 150 ms QRS Dur : 84 ms QT Int : 400 ms P-R-T Axes : 35 14 39 degrees QTcB Int : 470 ms Normal sinus rhythm Confirmed by Johnny Hamlin ([id number]) on 01/29/2024 3:05:14 PM Referred By: Confirmed By: Johnny Hamlin
[2024-01-29] MEDS: cloNIDine HCL 0.1 MG TAB PO PRN (19:52)
[2024-01-29] MEDS: NICOTINE 21 MG/24 HR TDSY TD SCH (19:52)
[2024-01-29] MEDS: ACETAMINOPHEN 325 MG TAB PO PRN (23:00)
[2024-01-30] MEDS: ESCITALOPRAM OXALATE 20 MG TAB PO SCH (08:40)
[2024-01-30] MEDS: ARIPiprazole 5 MG TAB PO SCH (08:40)
[2024-01-30] MEDS: FOLIC ACID 1 MG TAB PO SCH (08:40)
[2024-01-30] MEDS: LOSARTAN POTASSIUM 50 MG TAB PO SCH (08:41)
[2024-01-30] MEDS: THIAMINE HCL 100 MG TAB PO SCH (08:43)
[2024-01-30 09:13] LABS: Basophils # (auto) 0.01 K/uL (0.00-0.20); Basophils % (auto) 0.2 %; Eosinophils % (auto) 2.5 %; Hematocrit (blood only) 42.2 % (42.0-52.0); Hemoglobin 14.4 g/dl (14.0-18.0); Immature Granulocytes # (auto) 0.01 K/uL (0.01-0.20); Immature Granulocytes % (auto) 0.2 %; Lymphocytes # (auto) 1.13 K/uL (1.20-3.40); Mean Corpuscular Hemoglobin 31.2 pg (25.0-34.0); Mean Corpuscular Hgb Conc 34.1 g/dL (32.0-36.0); Mean Corpuscular Volume 91.5 fL (80.0-100.0); Mean Platelet Volume 9.8 fL (9.4-12.4); Monocytes # (auto) 0.83 K/uL (0.11-0.59); Monocytes % (auto) 20.6 %; Neutrophils # (auto) 1.95 K/uL (1.40-6.50); Neutrophils % (auto) 48.5 %; Platelet Count 171 K/uL (130-400); RDW Coefficient of Variation 13.8 % (11.5-14.5); RDW Standard Deviation 46.5 fL (36.4-46.3); Red Blood Count 4.61 M/uL (4.70-6.10); White Blood Count 4.03 K/ul (4.8-10.8)
[2024-01-30 09:34] LABS: Albumin Globulin Ratio 1.5 (0.9-2); Albumin Level 3.8 gm/dl (3.4-5.0); BUN Creatinine Ratio 19.5 (10-20); Bilirubin,Total 1.1 mg/dl (0.2-1.0); Calcium 9.1 mg/dl (8.6-10.3); Creatinine Clr Calc Pharmacy 94.8 ml/min; Globulin 2.5 gm/dl (2.5-4.0); Magnesium 2.2 mg/dl (1.7-2.4); Potassium 3.7 mmol/L (3.5-5.1); Total Protein 6.3 gm/dl (6.0-8.3)
--- NOTE | 2024-01-30 13:04 | Psychiatric Consultation ---
Date of Consultation January 30, 2024 Impression / Recommendations Impression Diagnostically consistent with alcohol use disorder as well as unspecified depression and anxiety likely a combination of substance-induced as well as MDD and GEORGE and social anxiety. Acute risk of self-harm is low given denial of SI and no longer with intoxication, future-oriented about spending the holidays with his family and with strong deterrents to suicide and wants to restart medication that had been working well for him (found workaround to high cost with use of GoodRx which he is pleased about) and willing to engage with outpatient therapy and start attending daily AA meetings. Chronic risk of self- harm and harm to others is slightly increased due to substance use with substance use treatment being the most significant modifiable risk factor to reduce acute and chronic risk. He is not interested in inpatient psychiatric treatment at this time nor does he likely meet admission criteria at this point but discussed options for dual diagnosis or residential substance use treatment vs outpatient dual diagnosis therapy and AA. He is not interested in residential treatment at this time but is agreeable to outpatient services to help with substance use and medication assisted treatment. Liver enzymes reviewed and stable for treatment with naltrexone and no concurrent opioids. Overall, I spent a total of 65 minutes with this case including review of chart records, review of labwork, review of EKG QTc, direct evaluation of the patient at bedside, counseling the patient, discussion of the patient with the hospitalist provider, discussion with the psychiatric liason during clinical ro unds and documentation in the electronic health record. (1) Alcohol use disorder, moderate, dependence: (2) Depression: Depression Type: unspecified Qualified Code(s): F32.9 - Major depressive disorder, single episode, unspecified (3) Alcohol withdrawal: Complication of substance-induced condition: with unspecified complication Qualified Code(s): F10.939 - Alcohol use, unspecified with withdrawal, unspecified (4) GEORGE (generalized anxiety disorder): (5) Social anxiety disorder: Plan -Safe for discharge from psychiatric standpoint once medically stable as acute risk of self-harm is low -Agree with psychiatric medications as ordered of: * escitalopram 20mg daily (consider alternative SSRI or SNRI in the future if depression doesn't improve with restarting abilify and escitalopram) * Abilify 5mg po daily (discussed use of GoodRx to make this affordable) -Would restart naltrexone 50mg daily HS po -Consider use of gabapentin 100mg TID po for off-label use for anxiety/alcohol use disorder as harm reduction strategy (and could be titrated in outpatient setting as indicated for further effect if needed; reviewed potential for fatal respiratory suppression if combined with alcohol) -Psych liason to confirm guns are secured with his , to attempt to establish individual therapy with [facility] for dual diagnosis and send this note to [facility] for continuity of care -Reviewed safety planning including crisis resources and advised to return to closest ED or call 911 or [phone] if symptoms worsen, do not improve or if he feels unable to remain safe which he states understanding of and is agreeable with Psych History Identifying Data 43 yo man with a history of anxiety, depression, alcohol use disorder, TIA, Gross's palsy, postconcussion syndrome, paroxysmal tachycardia admitted for alcohol withdrawal. Psychiatry consulted for "depression and alcohol use". Chief Complaint "I was just tired of drinking". History of Present Illness Alexandru was admitted for help with complicated alcohol withdrawal. Presented with subjective report of passive SI at time of admission while his reported he made active statement of wanting to jump out of the car on the way to the hospit al. Recently completed a 4 month residential dual diagnosis program in [place] There his depression improved on escitalopram 20mg daily in combination with Abilify 5mg for augmentation and naltrexone 50mg HS. Saw [facility] for psych follow-up shortly after leaving this program but then was unable to fill script for Abilify as outpatient at [facility] due to cost of >$300 out of pocket. After go ing one week without this he relapsed on alcohol use and then stopped his other medications as well. Describes feeling bored and then more depressed and tries to cope with his low mood by drinking but then can never stop himself after a few drinks and so "I always end up drinking too many" and then falls into old patterns of behaviors. He is frustrated this happens and feels his family is growing tired of his inability to maintain sobriety. Also deals with anxiety at times, has social anxiety. Engages in AA but no sponsor yet in part because he feels he is socially awkward and struggles to interact with others. 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 Has upcoming [facility] appointment. Denies legal issues, uses a breathalyzer and never drives if he has been drinking. Denies current SI which he credits to no longer being intoxicated. Feels he had SI because he often feels trapped when he starts drinking and "when I can't quit". Identifies he can usually work his way through things but has not been able to do this with alcohol over the past 4 years. Cites strong deterrents to suicide as his and children, future-oriented. Willing for therapy and feels hopeful his mood will improve if he can get back on abilify again. Reviewed goodrx costs at local pharmacies and he feels he could definitely afford monthly scripts based on estimated costs of $15-18/month. Guns at home but he reports having no acces as his secured these. History of one prior suicide attempt "many years ago" followed by inpatient psych admission at the [facility] which he didn't find helpful. History of [facility] IOP which he didn't find helpful either. Allergies Allergy/AdvReac Type Severity Reaction Status Date / Time No Known Allergies Allergy Verified 05/17/23 23:20 Home Medications Medication Instructions Recorded Confirmed Type losartan 100 mg tablet 100 mg PO DAILY 07/18/20 01/29/24 History escitalopram oxalate 20 mg tablet 20 mg PO DAILY 09/04/22 01/29/24 History clonidine HCl 0.1 mg tablet 0.1 mg PO TID PRN NEEDED 01/03/23 01/29/24 History hydroxyzine pamoate 25 mg capsule 50 mg PO TID PRN Anxiety 01/03/23 01/29/24 History aripiprazole 5 mg tablet 5 mg PO UD 01/29/24 01/29/24 History Patient History Medical History GERD (gastroesophageal reflux disease) Alcoholism with alcohol dependence High blood pressure TIA (transient ischemic attack) Surgical History No pertinent past surgical history Family History Other Family history non-contributory Social History Smoking Status: Never smoker Tobacco Type: Cigarettes Cigarettes Per Day: 5-6; Second Hand Exposure: No; Do You Dip or Chew Tobacco: No; Hx Alcohol Use: Yes Alcohol type: hard liquor Hx Substance Use: No Preferred Language: [place] Communication Ability: Effective Proposal Coordinator Required: No Beliefs That Will Affect Care: None Current Living Situation: Spouse and Family Current Living Situation Comment: with Other Information That Helps Us Care for You: No Feels Safe at Home: Yes Safety Concerns: Feels Safe At This Time Assistive Devices: Glasses Physical Exam Psychiatric: Orientation: alert and oriented x 3 Apperance: appropriately dressed and appropriately groomed Eye Contact: good eye contact Motor Behavior: no abnormal motor movements Speech: normal rate/rhythm/volume of speech Affect: + anxious affect Mood: + depressed mood and + anxious mood Thought Process: linear/logical thought process Thought Content: reality based without delusions Suicidal Thoughts: denies suicidal thoughts, denies suicidal plan and denies suicidal intent Homicidal Thoughts: denies homicidal thoughts Hallucinations: no auditory hallucinations and no visual hallucinations Cognition: recent memory grossly intact, remote memory grossly intact, attention grossly intact and language grossly intact Estimated Intelligence: consistent with education level Insight: + fair insight Judgment: + fair judgement Vital Signs (Past 24 Hours): Last Vital Signs Temp 36.3 C L 01/30/24 10:47 Pulse 58 L 01/30/24 10:47 Resp 16 01/30/24 10:47 BP 125/78 01/30/24 10:47 Pulse Ox 95 01/30/24 10:47 O2 Del Method Room Air 01/30/24 10:47 Results & Data (PSY) Medications Administered Acetaminophen (Acetaminophen 325 Mg Tab) 650 mg PO Q4H PRN PRN Reason: Pain or Fever Stop: 02/28/24 14:26 Last Admin: 01/29/24 23:00 Dose: 650 mg Documented By: JOAO Aripiprazole (Aripiprazole 5 Mg Tab) 5 mg PO QAM DEMIAN Stop: 02/29/24 08:59 Last Admin: 01/30/24 08:40 Dose: 5 mg Documented By: AM Clonidine HCl (Clonidine Hcl 0.1 Mg Tab) 0.1 mg PO TID PRN PRN Reason: Anxiety-first line Stop: 02/28/24 14:26 Last Admin: 01/29/24 19:52 Dose: 0.1 mg Documented By: JOAO Escitalopram Oxalate (Escitalopram Oxalate 20 Mg Tab) 20 mg PO DAILY [facility] Stop: 02/29/24 08:59 Last Admin: 01/30/24 08:40 Dose: 20 mg Documented By: AM Folic Acid (Folic Acid 1 Mg Tab) 1 mg PO QAM [facility] Stop: 02/29/24 08:59 Last Admin: 01/30/24 08:40 Dose: 1 mg Documented By: AM Lorazepam (Lorazepam 2 Mg/1 Ml Vial) 1 mg IV UD PRN; Protocol PRN Reason: EtOH Withdrawal AWSS Score 6,7 Stop: 02/28/24 11:46 Last Admin: 01/30/24 00:40 Dose: 1 mg Documented By: Admin: 01/29/24 14:36 Dose: 1 mg Documented By: Admin: 01/29/24 12:54 Dose: 1 mg Documented By: [facility] [place] [place] Losartan Potassium (Losartan Potassium 50 Mg Tab) 100 mg PO DAILY [facility] Stop: 02/29/24 08:59 Last Admin: 01/30/24 08:41 Dose: 100 mg Documented By: AM Miscellaneous (Remove Nicoderm Patch) 1 each N/A DAILY@0859 [facility] Stop: 02/29/24 08:58 Last Admin: 01/30/24 08:41 Dose: 1 each Documented By: AM Nicotine (Nicotine 21 Mg/24 Hr Tdsy) 1 patch TD QAM [facility] Stop: 02/28/24 18:29 Last Admin: 01/30/24 08:40 Dose: 1 patch Documented By: Admin: 01/29/24 19:52 Dose: 1 patch Documented By: JOAO Thiamine HCl (Thiamine Hcl 100 Mg Tab) 100 mg PO QAM [facility] Stop: 02/29/24 08:59 Last Admin: 01/30/24 08:43 Dose: 100 mg Documented By: AM Coding Level of Care Code 83512 IN/OBS CONSULT LVL 4,60M Diagnoses Alcohol use disorder, moderate, dependence F10.20 Depression F32.9 Depression Type: unspecified Alcohol withdrawal F10.939 Complication of substance-induced condition: with unspecified complication GEORGE (generalized anxiety disorder) F41.1 Social anxiety disorder F40.10
[2024-01-30] MEDS ORDERED: chlordiazePOXIDE HCl 25 MG CAP PO SCH (14:00)
--- NOTE | 2024-01-30 14:20 | Hospitalist Progress Note ---
Date of Service January 30, 2024 Assessment & Plan (1) Alcohol withdrawal: Plan: Continue supportive care. EFREM S protocol. Librium and tapering dose fashion. Serial labs (2) Depression: Plan: Patient does endorse thoughts of being better off but currently denies SI or plans for suicide. Appreciate psychiatry consultation recommendations. Continue Lexapro and Abilify. (3) HTN (hypertension): Plan: Stable. Continue losartan (4) Neuropathy: Plan: Chronic. Continue current medical management. Plan Hopeful discharge to home tomorrow, January 30. Admission and Anticipated Discharge Date Admission Date: January 29, 2024 Subjective Alert and oriented. Chlordiazepoxide dosage down titrated due to somnolence and lethargy. Psychiatry consultation appreciated. He is no longer expressing suicidal ideation. He is on Lexapro and Abilify which continue. Hopefully he can be safely discharged tomorrow, January 30 Review of Systems 2 Review of Systems: Constitutionalno fever or chills ENTno blurred vision, no double vision, no epistaxis, no sore throat Respiratoryno cough, no wheezing, no shortness of breath Cardiacno palpitations, no chest pain, no syncope Malena nausea, vomiting, diarrhea, melena, hematochezia GUno urinary retention, no urinary incontinence, no dysuria, no hematuria Musculoskeletalno joint pain, no muscle tenderness Skinno bruising, no rashes, no pruritus Neurono isolated weakness, no paresthesia, no weakness Psychno depression, no anxiety Physical Exam 2 Physical Exam: General-awake. Mildly lethargic from medication. No fever. Oriented x 3. HEENT-head atraumatic and normocephalic, pupils equal and reactive to light, extraocular muscles intact Neck-no lymphadenopathy or thyromegaly, trachea midline Chest-clear to auscultation. No rales, wheezing or rhonchi Cardiac-regular rate and rhythm, normal S1 and S2 Abdomen-normal bowel sounds, no hepatosplenomegaly Extremities-no cyanosis, clubbing, or edema Neuro-cranial nerves II through XII intact, motor and sensory function within normal limits, strength symmetrical, no focal deficits Psych-flat affect Results & Data Results & Data Vital Signs (Past 12 Hours) Vital Signs Temp Pulse Resp BP BP Pulse Ox O2 Del Method 01/30/24 10:47 36.3 C L 58 L 16 125/78 95 Room Air 01/30/24 07:52 36.6 C 55 L 16 130/82 97 Room Air 01/30/24 02:38 36.6 C 57 L 19 117/63 95 Room Air Laboratory Results 01/30/24 08:53 01/30/24 08:53 PG Care Time/CCT Total # of Minutes Spent Total Time Spent with Patient: Total time spent is greater than 50% in coordination of care (as documented) at patient's floor/unit and/or counseling patient: Coding Level of Care Code 08229 SUB INP/OBS CARE 3/50MIN Diagnoses Alcohol withdrawal F10.239 Depression F32.9 Depression Type: unspecified HTN (hypertension) I10 Neuropathy G62.9 (2) Depression Depression Type: unspecified Qualified Code(s): F32.9 - Major depressive disorder, single episode, unspecified
[2024-01-30] MEDS: hydrOXYzine HCl 25 MG TAB PO PRN (16:20)
[2024-01-30] MEDS ORDERED: NICOTINE POLACRILEX 2 MG GUM MT PRN (19:54)
[2024-01-31 08:15] VITALS: PULSE 69; RESP 20; TEMP 98.2; O2SAT 94
[2024-01-31 08:37] LABS: BUN Creatinine Ratio 20.2 (10-20); Calcium 8.9 mg/dl (8.6-10.3); Creatinine Clr Calc Pharmacy 108.4 ml/min; Potassium 3.6 mmol/L (3.5-5.1)
--- NOTE | 2024-01-31 10:55 | Discharge Summary ---
Discharge Summary Date of Service January 31, 2024 Principal Dx & Hospital Course #1 = Principal Diagnosis (1) Alcohol withdrawal: Stable. Treated while hospitalized with [facility] protocol. Librium Librium will continue at discharge and a tapering dose fashion. (2) Depression: Patient does endorse thoughts of being better off but currently denies SI or plans for suicide. Appreciate psychiatry consultation recommendations. Continue Lexapro and Abilify. (3) HTN (hypertension): Stable. Continue losartan (4) Neuropathy: Chronic. Continue current medical management. Plan Home today, January 30, on a tapering dose of Librium. Admission HPI Per Admitting Provider Alexandru is a 43-year-old male with PMH of TIA, Gross's palsy, postconcussion syndrome, paroxysmal tachycardia, depression, suicidal ideations, and alcoholism with dependence. He presented on 01/28 for alcohol detox. His (Tone) is at bedside and provides additional history. Patient reports that his last alcoholic drink was yesterday 01/27 around 11 AM. He reports that he drinks a fifth of whiskey per day, and has been doing so consistently for the past 2 weeks. Prior to this 2-week stretch, he was sober for approximately 4 months. He recently got out of a treatment center 3 weeks ago, and was supposed to be on Abilify, but never picked it up. Per , he has been canceling his appointments with [facility] (psychiatry). Patient does have a history of alcohol withdrawal that includes tremors and visual hallucinations. No auditory hallucinations. No history of seizures with alcohol withdrawal. Patient reports that he took his regular morning medicine today. He takes clonidine up to 3 times per day as needed for anxiety, and he reports he has been taking it at least twice daily over the past week. Last took Abilify 3 weeks ago. Additi onally, he reports that he passed out at one point and hit his head, but does not remember the details. Today, he has had intermittent upper chest pain that last for a few seconds at a time, but believes this might be secondary to his anxiety. No sick contacts. He denies recreational drug use or IV drug use. He is a current everyday tobacco cigarette smoker; 1 PPD. He does have a history of depression, and he does endorse thoughts of self-harm; when asked about suicidal ideations, he reports he does not want a talk about this at this time. However, his reports that he wanted to "jump out of the car" on their way here. He does not have any thoughts of harming others. Patient denies known history of liver issues. Patient's vitals are stable at time of admission. ED course: NSS 1000 mL IV Valium 5 mg IV Thiamine 200 mg IV Folic acid 1 mg IV ROS: Patient endorses night-sweats from withdrawal, tremors, dizziness/lightheadedness with movements, passing out from drinking, fell and hit head (does not remember this), intermittent chest pain (which patient attributes to anxiety), productive cough (clear), nausea, vomiting x 2 days (bile; attributes to amount of alcohol), diarrhea x 2 weeks, and dark colored urine, and numbness/tingling in the feet. Patient denies fever, chills, chest palpitations, pleuritic CP, SOB, abdominal pain, blood in the urine/stool, or burning with urination. Discharge Exam General-awake. Mildly lethargic from medication. No fever. Oriented x 3. HEENT-head atraumatic and normocephalic, pupils equal and reactive to light, extraocular muscles intact Neck-no lymphadenopathy or thyromegaly, trachea midline Chest-clear to auscultation. No rales, wheezing or rhonchi Cardiac-regular rate and rhythm, normal S1 and S2 Abdomen-normal bowel sounds, no hepatosplenomegaly Extremities-no cyanosis, clubbing, or edema Neuro-cranial nerves II through XII intact, motor and sensory function within normal limits, strength symmetrical, no focal deficits Psych-flat affect Discharge Plan Discharge Items Patient Disposition: Home - Self-Care Reason For Visit: ALCOHOL WITHDRAWAL Discharge Diagnosis: Alcohol withdrawal, depression Activity: Resume your previous activity Non-emergency contact: Primary Care Provider Call non-emergency contact if: you have any medication questions and your symptoms worsen Follow-up/Referrals: [facility] [Outside] (Patient to call and make appointment. Psychiatry notes will be faxed to [facility] for coordination of care. ) Vance Brito M.D. [Primary Care Provider] - Diet: Regular Addtl Attending Provider Instructions: Take Librium (chlordiazepoxide) in a tapering dose fashion as directed. New prescriptions for Lexapro and Abilify have been sent to the pharmacy at [facility] on Pending Studies at Discharge: No Stand-Alone Forms: [facility], Smoking Cessation Medications and DC Order Prescriptions: New chlordiazepoxide HCl 10 mg Capsule See Rx Instructions .ROUTE .COMPLEX Qty: 12 0RF Rx Instructions: 10 mg orally 3 times a day for 2 days, then 10 mg twice a day for 2 days, then 10 mg once a day for 2 days, then stop escitalopram oxalate 20 mg Tablet 20 mg PO DAILY Qty: 30 0RF aripiprazole [Abilify] 5 mg tablet 5 mg PO DAILY Qty: 30 0RF Continued losartan 100 mg tablet 100 mg PO DAILY Rx Instructions: PER PT "STOPPED TAKING ABOUT 3 WEEKS AGO". escitalopram oxalate 20 mg tablet 20 mg PO DAILY clonidine HCl 0.1 mg tablet 0.1 mg PO TID PRN (Reason: NEEDED) hydroxyzine pamoate 25 mg capsule 50 mg PO TID PRN (Reason: Anxiety) Discontinued aripiprazole 5 mg tablet 5 mg PO UD Rx Instructions: per pt, he should be taking the medication but hasnt been. Discharge Orders: Discharge Order (Routine); Ordered 01/31/24 Ordered By: Bernard Dominguez Admission Data Admit Date/Time: 01/29/24 11:53 Attending Provider: Bernard Dominguez Admit Provider: Allison Eisenberg Primary Care Provider: Vance Brito Other Providers: Allison Eisenberg; Chiara Cottrell; Price Walker; Andreea Yousif; Le Daniel; Flavio Yao; Bebe Person Hospital Stay Data Consultations 01/29/24 11:02 ED Decision to Admit Stat 01/29/24 14:12 Consult Psychiatry Routine Pending Results Patient Have Any Pending Studies at Discharge: No Discharge Instructions Given to Patient (Per Discharging Provider) Take Librium (chlordiazepoxide) in a tapering dose fashion as directed. New prescriptions for Lexapro and Abilify have been sent to the pharmacy at [facility] on [address] Total Time Total Time Spent Total Time Spent (In Minutes): 45 minutes Coding Level of Care Code 16698 INP/OBS DISCH >30 MIN Diagnoses Alcohol withdrawal F10.239 Depression F32.9 Depression Type: unspecified HTN (hypertension) I10 Neuropathy G62.9
[2024-01-31 11:06] VITALS: BP 135/83
[2024-01-31] MEDS ORDERED: chlordiazePOXIDE HCl 25 MG CAP PO SCH (14:00)
== END 2024-01-31 11:35 | disposition home or self-care (01) | DRG 897 ==
LOC: SUATTDRO → ED 09:17 → SUATTDRO 11:53 → 2S 11:53

== ENCOUNTER 2024-05-16 19:53 | Inpatient (IN) ==
[2024-05-16 20:44] LABS: Appearance Urine Clear (Clear); Bilirubin Urine Negative (Negative); Blood Urine Negative (Negative); Color Urine Yellow; Glucose Urine UA Negative (Negative); Ketones Urine Trace (Negative); Leukocyte Esterase Urine Negative (Negative); Nitrite Urine Negative (Negative); Protein Urine Negative (Negative); Specific Gravity Urine 1.022 (1.000-1.030); Urobilinogen Urine Negative (Negative)
[2024-05-16 20:48] LABS: Basophils # (auto) 0.03 K/uL (0.00-0.20); Basophils % (auto) 0.4 %; Eosinophils # (auto) 0.15 K/uL (0.00-0.50); Eosinophils % (auto) 1.8 %; Hematocrit (blood only) 43.8 % (42.0-52.0); Hemoglobin 15.1 g/dl (14.0-18.0); Immature Granulocytes # (auto) 0.04 K/uL (0.01-0.20); Immature Granulocytes % (auto) 0.5 %; Lymphocytes # (auto) 2.65 K/uL (1.20-3.40); Lymphocytes % (auto) 32.5 %; Mean Corpuscular Hemoglobin 31.8 pg (25.0-34.0); Mean Corpuscular Hgb Conc 34.5 g/dL (32.0-36.0); Mean Corpuscular Volume 92.2 fL (80.0-100.0); Monocytes # (auto) 0.84 K/uL (0.11-0.59); Monocytes % (auto) 10.3 %; Neutrophils # (auto) 4.45 K/uL (1.40-6.50); Neutrophils % (auto) 54.5 %; Platelet Count 229 K/uL (130-400); RDW Coefficient of Variation 12.7 % (11.5-14.5); RDW Standard Deviation 43.5 fL (36.4-46.3); Red Blood Count 4.75 M/uL (4.70-6.10); White Blood Count 8.16 K/ul (4.8-10.8)
[2024-05-16 21:00] LABS: Albumin Globulin Ratio 1.6 (0.9-2); Albumin Level 4.4 gm/dl (3.4-5.0); BUN Creatinine Ratio 18.4 (10-20); Bilirubin,Total 0.4 mg/dl (0.2-1.0); Calcium 9.7 mg/dl (8.6-10.3); Creatinine Clr Calc Pharmacy 96.2 ml/min; Globulin 2.7 gm/dl (2.5-4.0); Potassium 3.8 mmol/L (3.5-5.1); Total Protein 7.1 gm/dl (6.0-8.3)
[2024-05-16 21:07] LABS: Troponin I High Sensitivity 4.6 pg/ml (0-20)
[2024-05-16 21:16] LABS: Thyroid Stimulating Hormone 4.067 uIu/ml (0.300-4.500)
[2024-05-16 21:20] LABS: Partial Thromboplastin Ratio 0.9; Partial Thromboplastin Time 25 Seconds (21-31); Prothrombin Time 10.4 Seconds (9.0-12.0)
[2024-05-16 21:26] LABS: Influenza A virus by PCR Negative (Neg); Influenza B virus by PCR Negative (Neg); RSV by PCR Negative (Neg); SARS CoV2 RNA(COVID-19) Ceph NEGATIVE (Negative)
[2024-05-16 21:32] LABS: Acetaminophen < 3 ug/ml (10-30); Salicylate < 3.0 mg/dl (3.0-30)
[2024-05-16 21:32] LABS: Amphetamines+Metham, Urine Neg (Neg); Barbiturates, Urine Neg (Neg); Benzodiazepine, Urine Neg (Neg); Cocaine, Urine Neg (Neg); Fentanyl, Urine Neg (Neg); MDMA (Ecstacy), Urine Neg (Neg); Marijuana, Urine Neg (Neg); Methadone, Urine Neg (Neg); Opiate, Urine Neg (Neg); Phencyclidine, Urine Neg (Neg)
--- NOTE | 2024-05-16 22:20 | Emergency Department Note ---
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 [facility] Stop: 06/16/24 21:59 Last Admin: 05/17/24 21:06 Dose: 5 mg Documented By: CHRISTOPHER Discontinued Medications Escitalopram Oxalate (Escitalopram Oxalate 20 Mg Tab) 20 [facility] [place]: 06/16/24 08:59 Last Admin: 05/17/24 09:40 Dose: 20 mg Documented By: LEONOR Gabapentin (Gabapentin 100 Mg Cap) 100 mg PO TID [facility] Stop: 06/16/24 13:34 Last Admin: 05/18/24 09:49 Dose: 100 mg Documented By: Admin: 05/17/24 21:03 Dose: 100 mg Documented By: Admin: 05/17/24 15:08 Dose: Not Given Documented By: LEONOR Lorazepam (Lorazepam 1 Mg Tab) 1 mg PO NOW STA Stop: 05/16/24 22:17 Last Admin: 05/16/24 22:28 Dose: 1 mg Documented By: JACQUELINE Propranolol HCl (Propranolol Hcl 10 Mg Tab) 10 mg PO TID [facility] Stop: 06/16/24 12:29 Last Admin: 05/17/24 14:32 Dose: Not Given Documented By: LEONOR Discharge Plan Visit Data Chief Complaint: Mental Health Evaluation Stated Complaint: FATIGUE, WEAKNESS, NOT FEELING HIMSELF ED Provider: Eddie Varela Discharge Problem: Depression with suicidal ideation Patient Disposition: Admitted As Inpatient Discharge Instructions Interventions: ED Discharge Assessment Last Done: 05/17/24 00:57
[2024-05-16] MEDS: LORazepam 1 MG TAB PO STA (22:28)
--- NOTE | 2024-05-16 23:24 | Emergency Department Note ---
ED Visit Note The patient was taken in signout from Dr. Pappas at the change of shift. Please see that note for details. The patient was pending voluntary psychiatric admission. 3s consulted due to SI. Patient was accepted to [facility] for further management. I refer you to the EMR for further details. .
[2024-05-16] MEDS ORDERED: hydrOXYzine HCl 25 MG TAB PO PRN (23:28)
--- NOTE | 2024-05-16 23:33 | XRay Report ---
Exam(s): XR CXR 1 VIEW EXAM: XR Chest, 1 View CLINICAL HISTORY: Reason for exam: Chest pain, nonspecific. TECHNIQUE: Frontal view of the chest. COMPARISON: September 07, 2023 FINDINGS: Lungs: Unremarkable. No consolidation. Pleural space: Unremarkable. No pneumothorax. Heart: Unremarkable. No cardiomegaly. Mediastinum: Unremarkable. Normal mediastinal contour. Bones/joints: Mild left proptosis of the lower thoracic spine. No acute fracture. Upper abdomen: Unremarkable as visualized. No pneumoperitoneum under the diaphragm. IMPRESSION: No acute findings in the chest. Electronically signed by: Marcos Still MD 05/16/24 23:31 PM
[2024-05-17] MEDS ORDERED: SODIUM CHLORIDE 0.65% NA SOLN 45 ML (OCEAN) PRN (01:06)
[2024-05-17] MEDS ORDERED: MAGNESIUM HYDROXIDE SUSP 30 ML UDC PO PRN (01:06)
[2024-05-17] MEDS ORDERED: ALUMINUM/MAGNESIUM SUSP 30 ML UDC PO PRN (01:06)
[2024-05-17] MEDS ORDERED: BISMUTH SUBSALICYLATE 262 MG CHEW PO PRN (01:06)
[2024-05-17] MEDS ORDERED: ACETAMINOPHEN 325 MG TAB PO PRN (01:06)
[2024-05-17] MEDS ORDERED: INDOMETHACIN 25 MG CAP PO PRN (01:12)
--- OUTSIDE RECORDS SUMMARY | 2024-05-17 05:18 | External Medical Summary | Continuity of Care Document ---
Author Name Unknown Organization [address] Address [address] [place] [phone] Care Team Providers Care Tank Cleaner Name Role Phone Bettie Mohr Primary Care P hysician [phone] Encounter [facility] [id number] Date(s): 04/06/24 - 04/06/[address], [address] [address] [phone] Encounter Diagnosis Body mass index [BMI] 36.0-36.9, adult(Discharge Diagnosis) - 04/06/24 Hypertension(Discharge Diagnosis) - 04/06/24 Hyperlipidemia(Discharge Diagnosis) - 04/06/24 Impaired fasting glucose(Discharge Diagnosis) - 04/06/24 Bipolar illness(Discharge Diagnosis) - 04/06/24 Anxiety(Discharge Diagnosis) - 04/06/24 Alcohol use disorder, severe, in early remission(Discharge Diagnosis) - 04/06/24 Elevated hemoglobin(Discharge Diagnosis) - 04/06/24 Discharge Disposition: Home or Self Care Attending Physician: Marvel Jones DO, Mariana Annette Referring Physician: Marvel Jones DO, Mariana Annette Allergies, Adverse Reactions, Alerts No Known Allergies Assessment and Plan Extracted from: Title:Office Visit Note Author:Marvel Jones DO, Mariana Annette Date:04/06/24 1.Hypertension STATUS:Chronic stable. DATA:Labs reviewed. GOAL:Maintain stability. PLAN:Cont current medication . 2.Hyperlipidemia STATUS:Chronic stable. DATA:Labs reviewed. GOAL:Maintain stability. PLAN:Check lipids, CMP . 3.Impaired fasting glucose Check A1c 4.Bipolar illness STATUS:Chronic stable. GOAL:Maintain stability. PLAN:Cont psychiatry f/u . 5.Anxiety as above 6.Alcohol use disorder, severe, in early remission STATUS:Chronic stable. GOAL:Maintain stability. PLAN:Cont current monitoring. . 7.Elevated hemoglobin Recheck CBC Immunizations Given and Recorded Vaccine Date Status [...] Recorded poliovirus vaccine, inactivated 78 Recorded Medications ARIPiprazole 10 mg oral tablet take 1 pill every morning Start Date: 04/06/24 Status: Ordered ARIPiprazole 2 mg oral tablet TAKE 1 TABLET BY MOUTH EVERY DAY IN ADDITION TO 10MG (TOTAL OF 12 MG). Start Date: 04/06/24 Status: Ordered cloNIDine 0.1 mg oral tablet Start: 07/29/21 12:59:00 PM EDT, 1 tab, PO, Daily, PRN Start Date: 07/29/21 Status: Ordered hydrOXYzine pamoate 50 mg oral capsule Start: 03/08/22 2:37:00 PM EST, 1 cap, PO, ONCE, PRN: as needed for anxiety Start Date: 03/08/22 Status: Ordered Lexapro 20 mg oral tablet Start: 04/18/23 1:38:00 PM EST, 1 tab, PO, Daily Start Date: 04/18/23 Status: Ordered losartan 100 mg oral tablet Start: 04/06/24 2:43:00 PM EST, 1 tab, PO, Daily, Disp# 90 tab, Refills: 3, Pharmacy: [facility] Start Date: 04/06/24 Status: Ordered multivitamin Start: 11/03/20 11:57:00 AM EDT, 1 tab, PO, Daily Start Date: 11/03/20 Status: Ordered naltrexone 50 mg oral tablet Start: 04/18/23 2:08:00 PM EST, 1 tab, PO, Daily, Disp# 90 tab, Refills: 3, Pharmacy: [facility] Start Date: 04/18/23 Status: Ordered Mental Status 04/06/24 Barriers to Learning one year None evide nt Mandatory Health Literacy Documentation Yes Health Literacy Communication Barriers N ever Primary Language Lebanese Problem List Condition Confirmation Course Effective Dates Status Health St atus Informant Alcohol use disorder, severe, in early remission Confirmed Active Anxiety Confirmed Active Bipolar illness Confirmed Active Bradycardia Confirmed Active Cigarette smoker Confirmed Active Depression Confirmed Active Hypertension Confirmed Active Weight disorder Confirmed Active Diagnosis Diagnosis Type Effective Dates Health Status Clinical Service Informant Impaired fasting glucose Discharge Diagnosis 04/06/24 Non-Specified Elevated hemoglobin Discharge Diagnosis 04/06/24 Non-Specified Hyperlipidemia Discharge Diagnosis 04/06/24 Non-Specified Hypertension Discharge Diagnosis 04/06/24 Non-Specified Anxiety Discharge Diagnosis 04/06/24 Non-Specified Body mass index [BMI] 36.0-36.9, adult Discharge Diagnosis 04/06/24 Non-Specified Bipolar illness Discharge Diagnosis 04/06/24 Non-Specified Alcohol use disorder, severe, in early remission Discharge Diagnosis 04/06/24 Non-Specified Procedures Procedure Date Related Diagnosis Body Site [...] 12, 13 04/19/14 Completed Cardiac monitoring 14 1/19/15 Com pleted Stress echocardiography test interpretation 15 [...] recent to oldest [Reference Range]: 1 Height 171.0 cm (04/06/24 2:05 PM) Patient Weight 107.7 kg (04/06/24 2:05 PM) Body Mass Index 36.83 kg/m2 (04/06/24 2:05 PM) Temperature [36.5-37.9 DegC] 37.3 DegC (04/06/24 2:05 PM) Blood Pressure 138/84mmHg (04/06/24 2:05 PM) Cuff Pulse Pressure 54 mmHg (04/06/24 2:05 PM) Social History Social History Type Response Tobacco Current every day sm oker, Cigarettes, 10 per day. Smoking Status Current every day li ght smoker Sex Male Sex Representation Male (finding) [facility]CM Outpt Note * Marvel Jones DO, Mariana Annette: PERFORM Event Display: [facility]CM Outpt Note Authored Date: [id number] Chief Complaint F/U meds, NO concerns. Declines flu inj. History of Present Illness Presents for chronic condition management HTN - home measurements: has not checked in a while, 120s/80s usually - on losartan 100mg w/o side effects Alcohol use disorder - sober for 6-7 months - has had numerous ED visits/hospitalizations for [...] disorder, anxiety - [facility] - getting more anxiety/panic attacks - now onabilify,clonidine, lexapro, hydroxyzine Tobacco use - working on quitting, smoking 1 pack per 3 days. - has nicotine patches at home Health Maintenance: - Colon CA screening: has ever had, declines - Hep C screening: done at rehab, negative. Physical Exam Vitals & Measurements T:37.3C BP:138/84 SpO2:96% HT:171.0cm WT:107.700kg(Dosing) WT:107.7kg BMI:36.83 PHQ2 Data(Data Documented on:04/06/2024 14:03) Emotional health assessment NEGATIVE General: _Alert and oriented, No acute distress Cardiovascular: _Normal rate, Regular rhythm, No murmur, No gallop. Respiratory: _Lungs are clear to auscultation, Respirations are non-labored, Breath sounds are equal Psych: Mood-affect congruence. Reports no SI/HI. Speech is of normal pace and content Assessment/Plan 1.Hypertension STATUS:Chronic stable. DATA:Labs reviewed. GOAL:Maintain stability. PLAN:Cont current medication . 2.Hyperlipidemia STATUS:Chronic stable. DATA:Labs reviewed. GOAL:Maintain stability. PLAN:Check lipids, CMP . 3.Impaired fasting glucose Check A1c 4.Bipolar illness STATUS:Chronic stable. GOAL:Maintain stability. PLAN:Cont psychiatry f/u . 5.Anxiety as above 6.Alcohol use disorder, severe, in early remission STATUS:Chronic stable. GOAL:Maintain stability. PLAN:Cont current monitoring. . 7.Elevated hemoglobin Recheck CBC Attestation Time spent: Pre-visit planning: _6 Bxos-bm-mtqi visit: _27 Post-visit (orders/documentation/coordination of care):5 Total visit time: _38 Problem List/Past Medical History Ongoing Alcohol use disorder, severe, in early remission Anxiety Bipolar illness Bradycardia Cigarette smoker Depression Hypertension Weight disorder Resolved Conjunctivitis Otitis media of right ear Redness of right eye Procedure/Surgical History CT of head| Service Date: 09/04/2022X-ray of chest and abdomen| Service Date: 2CTof abdominal organs, kidney, ureter and bladder without contrast| Service Date: 07/27/2019Chest x-ray| Service Date: 11/28/2018Cardiac monitoring| Service Date: 11/01/2017Chest X-ray| Service Date: 09/28/2016X-ray of left ankle| Service Date: 06/20/2015MRI of brain| Service Date: 02/19/2015MRI of brain| Service Date: 07/24/2014CT of head| Service Date: 07/23/2014Electrocardiogram| Service Date: 05/08/2014Cardiac monitoring| Service Date: 04/19/2014Cardiac monitoring| Service Date: 03/25/2014Stress echocardiography test interpretation| Service Date: 03/06/2014CT of abdomen and pelvis| Service Date: 02/01/2014MRI of brain| Service Date: 06/18/2013CT of brain| Service Date: 06/17/2013CT of brain| Service Date: 06/16/2013CT of cervical spine| Service Date: 06/16/2013Chest X-ray| Service Date: 05/06/2011CT of chest| Service Date: 07/27/2009Cardiac catheterisation| Service Date: 05/26/2006Stress echocardiography test interpretation| Service Date: 02/08/2006Holter monitor| Service Date: 01/24/2006 Medications ARIPiprazole(ARIPiprazole 2 mg oral tablet) ARIPiprazole(ARIPiprazole 10 mg oral tablet) cloNIDine(cloNIDine 0.1 mg oral tablet), 0.1 mg= 1 tab, PO, Daily escitalopram(Lexapro 20 mg oral tablet), 20 mg= 1 tab, PO, Daily hydrOXYzine(hydrOXYzine pamoate 50 mg oral capsule), 50 mg= 1 cap, PO, ONCE, PRN losartan(losartan 100 mg oral tablet), 100 mg= 1 tab, PO, Daily, 3 refills multivitamin, 1 tab, PO, Daily naltrexone(naltrexone 50 mg oral tablet), 50 mg= 1 tab, PO, Daily, 3 refills Allergies NKA Social [...] day smoker Type:Cigarettes Tobacco use per day:10 Intake (IView) Smoking History Cigarette smoker: Current every day light smoker Tobacco Product Use: Never used other tobacco products What is/was avg daily use when smoking: .50 (10 cigarettes) How many total years have you smoked: 25 Total pack years: 12.5 SHX E-Cigarette Use: Never Family History Heart attack: Father. Health Status [...] the next year) OverDue Adult Influenza Vaccine due09/05/23and every 1year Due Adult COVID-19 Vaccination due04/06/24Unknown Frequency Adult Social Determinants of Health Screening due04/06/24Unknown Frequency Colorectal Cancer Screening due04/06/24Unknown Frequency Hepatitis C Screening due04/06/24One-time only Pneumococcal Vaccine Adults and Adolescents with Chronic Illness due04/06/24One-time only Satisfied(in the past 1 year) Satisfied Body Mass Index on04/06/24.Satisfied by HENOK Rodriguez Lori Electronic Signature on File Electronically Reviewed/Signed by: Bettie Jones DO Author Signature Dt/Tm:04/06/2024 05:40 PM Department of Family Medicine [facility] Patient Care team information Care Team Personnel Name: Marvel Jones DO, Mariana Annette Position: Physician - Family Med Member Role: Primary Care Provider Address: [address] [place] [address] Care Team Related Persons Name: EM JACKSON"
--- OUTSIDE RECORDS SUMMARY | 2024-05-17 05:18 | External Medical Summary ---
Author Name Unknown Address Unknown Organization : Laboratory Report Ordering Provider Test Date Status Marvel Alexandre Karen 04/10/2024 09:10:00 Fin al Observation Date Value Abnormality Reference (Units ) Status Aspartate aminotransferase [Enzymatic activity/volume] in Serum or Plasma 04/11/2024 13:33:30 17 10-40 (U/L) Final
Specimen Received d/t: 04/10/2024 22:40:00

Lab test performed by:
[facility], [facility]
[address]
[place] [address]
Amadeo Arteaga MD Bilirubin.total [Mass/volume] in Serum or Plasma 04/11/2024 13:33:30 1.7 Above high normal 0.2-1.2 (mg/dL) Final
Specimen Received d/t: 04/10/2024 22:40:00

Lab test performed by:
[facility], [facility]
[address]
[place] [address]
Amadeo Arteaga MD Urea nitrogen [Mass/volume] in Serum or Plasma 04/11/2024 13:33:30 25 7-25 (mg/dL) Final
Specimen Received d/t: 04/10/2024 22:40:00

Lab test performed by:
[facility], [facility]
[address]
[place] [address]
Amadeo Arteaga MD Sodium [Moles/volume] in Ser um or Plasma 04/11/2024 13:33:30 136 135-146 (mmol/L) Pinky l
Specimen Received d/t: 04/10/2024 22:40:00

Lab test performed by:
[facility], [facility]
[address]
[place] [address]
Amadeo Arteaga MD Alkaline phosphatase [Enzyma tic activity/volume] in Serum or Plasma 04/11/2024 13:33:30 73 36-130 (U/L) Final
Specimen Received d/t: 04/10/2024 22:40:00

Lab test performed by:
[facility] [facility], [facility]
[address]
[place] [address]
Amadeo Arteaga MD Creatinine [Mass/volume] in Serum or Plasma 04/11/2024 13:33:30 1.49 Above high normal 0.60-1.29 (mg/dL) Final
Specimen Received d/t: 04/10/2024 22:40:00

Lab test performed by:
[facility], [facility]
[address] [facility]
[place] [address]
Amadeo Arteaga MD Potassium [Moles/volume] in Serum or Plasma 04/11/2024 13:33:30 3.8 3.5-5.3 (mmol/L) Pinky l
Specimen Received d/t: 04/10/2024 22:40:00

Lab test performed by:
[facility], [facility]
[address]
[place] [address]
Amadeo Arteaga MD Albumin/Globulin [Mass Ratio ] in Serum or Plasma 04/11/2024 13:33:30 1.6 1.0-2.5 ((calc)) F inal
Specimen Received d/t: 04/10/2024 22:40:00

Lab test performed by:
[facility], [facility]
[address]
[place] [address]
Amadeo Arteaga MD Protein [Mass/volume] in Ser um or Plasma 04/11/2024 13:33:30 7.1 6.1-8.1 (g/dL) Final
Specimen Received d/t: 04/10/2024 22:40:00

Lab test performed by:
[facility], [facility]
[address]
[place] [address]
Amadeo Arteaga MD Glucose [Mass/volume] in Serum or Plasma 04/11/2024 13:33:30 99 65-99 (mg/dL) Final
Fasting reference inte rval

Specimen Received d/t: 04/10/2024 22:40:00

Lab test performed by:
[facility], [facility]
[address]
[place] [address]
Amadeo Arteaga MD Urea nitrogen/Creatinine [Ma ss Ratio] in Serum or Plasma 04/11/2024 13:33:30 17 6-22 ((calc)) Pinky l
Specimen Received d/t: 04/10/2024 22:40:00

Lab test performed by:
[facility] [employer], [facility]
[address]
[place] [address]
Amadeo Arteaga MD Carbon dioxide, total [Moles /volume] in Serum or Plasma 04/11/2024 13:33:30 28 20-32 (mmol/L) Fin al
Specimen Received d/t: 04/10/2024 22:40:00

Lab test performed by:
[facility] [employer], [facility]
[address]
[place] [address]
Amadeo Arteaga MD Albumin [Mass/volume] in Ser um or Plasma 04/11/2024 13:33:30 4.4 3.6-5.1 (g/dL) Final
Specimen Received d/t: 04/10/2024 22:40:00

Lab test performed by:
[facility] [employer], [facility]
[address]
[place] [address]
Amadeo Arteaga MD Alanine aminotransferase [En zymatic activity/volume] in Serum or Plasma 04/11/2024 13:33:30 17 9-46 (U/L) Final
Specimen Received d/t: 04/10/2024 22:40:00

Lab test performed by:
[facility] [employer], [facility]
[address]
[place] [address]
Amadeo Arteaga MD Globulin-[facility] 04/11/2024 13:33:30 2.7 1.9-3 .7 (g/dL (calc)) Final
Specimen Received d/t: 04/10/2024 22:40:00

Lab test performed by:
[facility] [employer], [facility]
[address]
[place] [address]
Amadeo Arteaga MD Ca-[facility] 04/11/2024 13:33:30 9.9 8.6-10.3 ( mg/dL) Final
Specimen Received d/t: 04/10/2024 22:40:00

Lab test performed by:
[facility], [facility]
[address]
[place] [address]
Amadeo Arteaga MD eGFR 04/11/2024 13:33:30 59 Below low normal > O R = 60 (mL/min/1.73m2) Final
Specimen Received d/t: 04/10/2024 22:40:00

Lab test performed by:
[facility], [facility]
[address]
[place] [address]
Amadeo Arteaga MD Chloride [Moles/volume] in Serum or Plasma 04/11/2024 13:33:30 97 Below low normal 98-110 (mmo l/L) Final
Specimen Received d/t: 04/10/2024 22:40:00

Lab test performed by:
[facility], [facility]
[address]
[place] [address]
Amadeo Arteaga MD Performing Location
--- OUTSIDE RECORDS SUMMARY | 2024-05-17 05:18 | External Medical Summary ---
Author Name Unknown Address Unknown Organization : Laboratory Report Ordering Provider Test Date Status Marvel Alexandre Karen 04/10/2024 09:10:00 Fin al Observation Date Value Abnormality Reference (Units ) Status Lymphocytes [#/volume] in Blood by Automated count 04/11/2024 13:33:30 [id number] (cells/uL) Final
Specimen Received d/t: 04/10/2024 22:40:00

Lab test performed by:
[place], [facility]
[address]
[place] [address]
Amadeo Arteaga MD Erythrocyte distribution wid th [Ratio] by Automated count 04/11/2024 13:33:30 13.4 11.0-15.0 (%) F inal
Specimen Received d/t: 04/10/2024 22:40:00

Lab test performed by:
[place], [facility]
[address]
[place] [address]
Amadeo Arteaga MD Lymphocytes/100 leukocytes i n Blood by Automated count 04/11/2024 13:33:30 16.6 (%) Final
Specimen Received d/t: 04/10/2024 22:40:00

Lab test performed by:
[place], [facility]
[address]
[place] [address]
Amadeo Arteaga MD MCV [Entitic volume] by Auto mated count 04/11/2024 13:33:30 94.6 80.0-100.0 (fL) Final
Specimen Received d/t: 04/10/2024 22:40:00

Lab test performed by:
[place], [facility]
[address]
[place] [address]
Amadeo Arteaga MD Platelet mean volume [Entiti c volume] in Blood by Judd-Deng 04/11/2024 13:33:30 10.7 7.5-12.5 (f L) Final
Specimen Received d/t: 04/10/2024 22:40:00

Lab test performed by:
[place], [facility]
[address]
[place] [address]
Amadeo Arteaga MD Eosinophils/100 leukocytes i n Blood by Automated count 04/11/2024 13:33:30 0.2 (%) Final
Specimen Received d/t: 04/10/2024 22:40:00

Lab test performed by:
[place], [facility]
[address]
[place] [address]
Amadeo Arteaga MD Eosinophils [#/volume] in Bl ood by Automated count 04/11/2024 13:33:30 17 15-500 (cells/uL) Final
Specimen Received d/t: 04/10/2024 22:40:00

Lab test performed by:
[place], [facility]
[address]
[place] [address]
Amadeo Arteaga MD Erythrocytes [#/volume] in Blood by Automated count 04/11/2024 13:33:30 5.15 4.20-5.80 (Million/uL) Final
Specimen Received d/t: 04/10/2024 22:40:00

Lab test performed by:
[place], [facility]
[address]
[place] [address]
Amadeo Arteaga MD MCHC [Mass/volume] by Automa adam count 04/11/2024 13:33:30 33.5 32.0-36.0 (g/dL) Pinky l For adults, a slight decreas e in the calculated MCHC
value (in the range of 30 to 32 g/dL) is most likely
not clinically significant; however, it should be
interpreted with caution in correlation with other
red cell parameters and the patient's clinical
condition.

Specimen Received d/t: 04/10/2024 22:40:00

Lab test performed by:
[place], [facility]
[address]
[place] [address]
Amadeo Arteaga MD Neutrophils/100 leukocytes i n Blood by Automated count 04/11/2024 13:33:30 70.8 (%) Final
Specimen Received d/t: 04/10/2024 22:40:00

Lab test performed by:
[place]
[address]
[place] [address]
Amadeo Arteaga MD Hematocrit [Volume Fraction] of Blood by Automated count 04/11/2024 13:33:30 48.7 38.5-50.0 (%) F inal
Specimen Received d/t: 04/10/2024 22:40:00

Lab test performed by:
[facility], [facility]
[address]
[place] [address]
Amadeo Arteaga MD Monocytes [#/volume] in Blood by Automated count 04/11/2024 13:33:30 1020 Above high normal 200-950 (cells/uL) Final
Specimen Received d/t: 04/10/2024 22:40:00

Lab test performed by:
[facility], [facility]
[address]
[place] [address]
Amadeo Arteaga MD Platelets [#/volume] in Bloo d by Automated count 04/11/2024 13:33:30 305 140-400 (Thousa nd/uL) Final
Specimen Received d/t: 04/10/2024 22:40:00

Lab test performed by:
[facility], [facility]
[address]
[place] [address]
Amadeo Arteaga MD Monocytes/100 leukocytes in Blood by Automated count 04/11/2024 13:33:30 12.0 (%) Final
Specimen Received d/t: 04/10/2024 22:40:00

Lab test performed by:
[facility], [facility]
[address]
[place] [address]
Amadeo Arteaga MD Leukocytes [#/volume] in Blo od by Automated count 04/11/2024 13:33:30 8.5 3.8-10.8 (Thous and/uL) Final
Specimen Received d/t: 04/10/2024 22:40:00

Lab test performed by:
[facility], [facility]
[address]
[place] [address]
Amadeo Arteaga MD MCH [Entitic mass] by Automated count 04/11/2024 13:33:30 31 .7 27.0-33.0 (pg) Final
Specimen Received d/t: 04/10/2024 22:40:00

Lab test performed by:
[place], [facility]
[address]
[place] [address]
Amadeo Arteaga MD Neutrophils [#/volume] in Bl ood by Automated count 04/11/2024 13:33:30 6018 [phone] (cell s/uL) Final
Specimen Received d/t: 04/10/2024 22:40:00

Lab test performed by:
[place], [facility]
[address]
[place] [address]
Amadeo Arteaga MD Basophils/100 leukocytes in Blood by Automated count 04/11/2024 13:33:30 0.4 (%) Final
Specimen Received d/t: 04/10/2024 22:40:00

Lab test performed by:
[place], [facility]
[address]
[place] [address]
Amadeo Arteaga MD Basophils [#/volume] in Bloo d by Automated count 04/11/2024 13:33:30 34 0-200 (cells/uL) F inal
Specimen Received d/t: 04/10/2024 22:40:00

Lab test performed by:
[place], [facility]
[address]
[place] [address]
Amadeo Arteaga MD Hemoglobin [Mass/volume] in Blood 04/11/2024 13:33:30 16.3 13.2-17.1 (g/dL) Final
Specimen Received d/t: 04/10/2024 22:40:00

Lab test performed by:
[facility], [facility]
[address]
[place] [address]
Amadeo Arteaga MD Performing Location
--- OUTSIDE RECORDS SUMMARY | 2024-05-17 05:18 | External Medical Summary ---
Author Name Unknown Address Unknown Organization : Laboratory Report Ordering Provider Test Date Status Marvel Alexandre 04/10/2024 09:10:00 Fin al Observation Date Value Abnormality Reference (Units ) Status Cholesterol.total/Cholest joel in HDL [Mass Ratio] in Serum or Plasma 04/11/2024 13:33:30 2.7 <5.0 ((calc)) Final
Specimen Received d/t: 04/10/2024 22:40:00

Lab test performed by:
[email or web address]
[address]
[place] [address]
Amadeo Arteaga MD Cholesterol in HDL [Mass/vol ume] in Serum or Plasma 04/11/2024 13:33:30 56 > OR = 40 (mg/dL) Final
Specimen Received d/t: 04/10/2024 22:40:00

Lab test performed by:
[email or web address]
[address]
[place] [address]
Amadeo Arteaga MD LDL Chol 04/11/2024 13:33:30 68 (mg/dL (ca lc)) Final Reference range: <100
<b r/>Desirable range <100 mg/dL for primary prevention;
<70 mg/dL for patients with CHD or diabetic patients
with > or = 2 CHD risk factors.

LDL-C is now calculated using the Cheko-Medina
calculation, which is a validated novel method providing
better accuracy than the Friedewald equation in the
estimation of LDL-C.
Cheko GAN et al. JERO. 2013;310(19): 2061- 2068
(http://[employer]/faq/CKB981)

Specimen Received d/t: 04/10/2024 22:40:00

Lab test performed by:
[place], [facility]
[address]
[place] [address]
Amadeo Arteaga MD Non HDL Chol 04/11/2024 13:33:30 96 <130 (m g/dL (calc)) Final For patients with diabetes p maggie 1 major ASCVD risk
factor, treating to a non-HDL-C goal of <100 mg/dL
(LDL-C of <70 mg/dL) is considered a therapeutic
option.

Specimen Received d/t: 04/10/2024 22:40:00

Lab test performed by:
[place], [facility]
[address]
[place] [address]
Amadeo Arteaga MD Cholesterol [Mass/volume] in Serum or Plasma 04/11/2024 13:33:30 152 <200 (mg/dL) Final
Specimen Received d/t: 04/10/2024 22:40:00

Lab test performed by:
[place], [facility]
[address]
[place] [address]
Amadeo Arteaga MD Triglyceride [Mass/volume] in Serum or Plasma 04/11/2024 13:33:30 224 Above high normal <150 (mg/dL) Fin al
If a non-fasting specim en was collected, consider
repeat triglyceride testing on a fasting specimen
if clinically indicated.
Nigel et al. J. of Clin. Lipidol. 2015;9:129- 169.

Specimen Received d/t: 04/10/2024 22:40:00

Lab test performed by:
[facility], [facility]
[address]
[place] [address]
Amadeo Arteaga MD Performing Location
[2024-05-17 06:46] VITALS: RESP 16
[2024-05-17] MEDS ORDERED: REXULTI 0.5 MG PO SCH (09:00)
[2024-05-17] MEDS ORDERED: LOSARTAN POTASSIUM 50 MG TAB PO SCH (09:00)
[2024-05-17] MEDS: BREXPIPRAZOLE 1 MG TAB PO SCH (09:39)
[2024-05-17] MEDS: ESCITALOPRAM OXALATE 20 MG TAB PO SCH (09:40)
[2024-05-17] MEDS: NICOTINE 14 MG/24 HR PATCH TD SCH (09:41)
[2024-05-17] MEDS: LOSARTAN POTASSIUM 50 MG TAB PO SCH (09:41)
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
[2024-05-17] MEDS: PROPRANOLOL HCL 10 MG TAB PO SCH (14:32)
[2024-05-17] MEDS: GABAPENTIN 100 MG CAP PO SCH (15:08)
[2024-05-17] MEDS: hydrOXYzine HCl 25 MG TAB PO PRN (19:15)
[2024-05-17] MEDS: ZOLPIDEM TARTRATE 5 MG TAB PO SCH (21:06)
--- NOTE | 2024-05-17 22:47 | Electrocardiogram Report ---
Test Reason : Blood Pressure : */* mmHG Vent. Rate : 48 BPM Atrial Rate : 48 BPM P-R Int : 154 ms QRS Dur : 100 ms QT Int : 470 ms P-R-T Axes : 34 33 35 degrees QTcB Int : 419 ms Sinus bradycardia Otherwise normal ECG When compared with ECG of 29-Jan-2024 09:34, Vent. rate has decreased by 35 bpm Confirmed by David Bhat ([id number]) on 05/17/2024 10:47:41 PM Referred By: REFERRED SELF Confirmed By: David Bhat
--- NOTE | 2024-05-17 22:48 | Electrocardiogram Report ---
Test Reason : Blood Pressure : */* mmHG Vent. Rate : 50 BPM Atrial Rate : 50 BPM P-R Int : 156 ms QRS Dur : 94 ms QT Int : 468 ms P-R-T Axes : 49 46 38 degrees QTcB Int : 426 ms Sinus bradycardia Otherwise normal ECG When compared with ECG of 16-May-2024 20:43, No significant change was found Confirmed by David Bhat ([id number]) on 05/17/2024 10:48:11 PM Referred By: REFERRED SELF Confirmed By: David Bhat
[2024-05-18 09:37] LABS: Chol HDL Ratio 5.7 (0-5)
[2024-05-18] MEDS: VENLAFAXINE HCL XR 37.5 MG CAPXR PO SCH (09:49)
[2024-05-18] MEDS: ESCITALOPRAM OXALATE 10 MG TAB PO SCH (09:49)
[2024-05-18 11:38] LABS: Estimated Average Glucose 111 mg/dl; Hemoglobin A1C 5.5 % (4.5-5.6)
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
[2024-05-18] MEDS: CHOLECALCIFEROL 125 MCG (5,000 UNITS) TAB PO SCH (12:28)
[2024-05-18] MEDS: GABAPENTIN 100 MG CAP PO SCH ×2 (14:17→21:35)
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
[2024-05-20 06:26] VITALS: TEMP 97.7; O2SAT 96
[2024-05-20] MEDS: VENLAFAXINE HCL XR 75 MG CAPXR PO SCH (08:16)
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
[2024-05-20] MEDS: NICOTINE POLACRILEX 2 MG GUM MT PRN (15:55)
[2024-05-21] MEDS: VENLAFAXINE HCL XR 150 MG CAPXR PO SCH (08:56)
--- NOTE | 2024-05-21 08:57 | Discharge Summary ---
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 reschedule. 2. Take your medication only as prescribed. Medication should not be changed or stopped without the approval of your doctor. In the event of worsening symptoms or concerns about side effects, contact your doctor immediately. 3. Utilize new healthy coping skills, anger management skills, and stress management skills learned during your hospitalization. Journal feelings and process them with a support person. Identify stressors or situations that may result in relapse, deterioration or inappropriate behaviors and develop a plan to deal with those issues. 4. If your coping skills are ineffective and you are in crisis, contact your outpatient providers for direction. If unable to reach your providers, please call the [facility] CRISIS LINE AT , go to the [facility] walk-in center at [address], [address], [place], or go to the closest Emergency Room. 5. Avoid alcohol and un-prescribed drugs. 6. You have been provided with the Mental Health Advance Directives Pamphlet for your review. 7. Your condition is stable for discharge to outpatient level of care, but recovery is an ongoing process. Ifthoughts to harm yourself or others return, follow the safety plan developed during your stay. Planning for a safe return home includes securing weapons. Our treatment team recommends weaponsbe removed from the home until your outpatient provider reassesses your progress. In rare cases where the items themselvescannot be removed, guns and ammunitionshould be secured separatelyand keys stored by a reliable personoutside of the home. If you were admitted on an involuntary commitment, the police or other legal authorities may be involved in this process. AFTERCARE APPOINTMENTS: * Please call your insurance company prior to your scheduled appointment to confirm your aftercare providers are covered. Take your insurance information to your appointments. WHO TO CALL AND WHEN: Medical Emergencies: For questions or emergencies related to your hospital stay, please contact the Inpatient Behavioral Health Unit at [phone]. A signaling project engineer is on-call 27/09 for the Behavioral Health Unit for emergencies At any time you feel your situation is an emergency, you may also call 911 immediately. National Crisis Hotline: 988 Pending Studies at Discharge: No Stand-Alone Forms: [facility], Smoking Cessation Medications and DC Order Prescriptions: New venlafaxine 150 mg Capsule,Extended Release 24hr 150 mg PO QAM 30 Days Qty: 30 0RF zolpidem 5 mg Tablet 5 mg PO HS 30 Days Qty: 30 0RF gabapentin 100 mg Capsule 100 mg PO BID@0900,1400 30 Days Qty: 60 0RF gabapentin 100 mg Capsule 200 mg PO HS 30 Days Qty: 60 0RF cholecalciferol (vitamin D3) 125 mcg (5,000 unit) Tablet 125 mcg PO QAM 30 Days Qty: 30 0RF naltrexone 50 mg tablet 50 mg PO DAILY Qty: 1 0RF Continued losartan 100 mg tablet 100 mg PO DAILY Rx Instructions: PER PT "STOPPED TAKING ABOUT 3 WEEKS AGO". hydroxyzine pamoate 25 mg capsule 50 mg PO TID PRN (Reason: Anxiety) Changed indomethacin 50 mg Capsule 50 mg PO TID PRN (Reason: gout) Qty: 0 0RF Rx Instructions: administer with food or milk Rexulti 1 mg PO DAILY Qty: 0 0RF Discontinued clonidine HCl 0.1 mg tablet 0.1 mg PO TID PRN (Reason: NEEDED) escitalopram oxalate 20 mg Tablet 20 mg PO DAILY Qty: 30 0RF Discharge Orders: Discharge Order (Routine); Ordered 05/21/24 Ordered By: Chiara Cottrell Admission Data Admit Date/Time: 05/17/24 00:07 Attending Provider: Chiara Cottrell Admit Provider: Flavio Yao Primary Care Provider: PCP,NO Other Interventions: Discharge Summary Assessment (RN) Last Done: 05/21/24 09:45 PSY Interdisciplinary Discharge Planning Last Done: 05/21/24 10:31 Coding Level of Care Code 74423 D/C day mgmt > 30 min Diagnoses Major depressive disorder with current active episode F32.9 Post traumatic stress disorder (PTSD) F43.10 Cluster B personality disorder F60.89 Low self esteem R45.81 Nightmares F51.5 History of suicidal ideation Z86.59 Alcohol use disorder, severe, in sustained remission F10.21 Hypertension I10 Hypertension type: unspecified Neuropathy G62.9 Vitamin D deficiency E55.9
[2024-05-21] MEDS ORDERED: DESTROY THIS MEDICATION ONE (09:25)
[2024-05-21 09:55] VITALS: BP 114/76; PULSE 44
== END 2024-05-21 10:50 | disposition home or self-care (01) | DRG 882 ==
LOC: ED 19:53 → SUATTDRO 05-17 00:07 → 3S 05-17 00:07